=== PATIENT | male | born 1950 | race Caucasian/White ===

== ENCOUNTER 2021-10-02 07:03 | Outpatient (REF) | payer OTHER, SELFPAY ==
[2021-10-02 08:39] LABS: MANUAL DIFF FLAG NO
[2021-10-02 09:17] LABS: Basophils Percent Auto 0.2 % (0-2); Eosinophils Absolute Auto 0.1 X10*3/uL (0.0-0.4); Eosinophils Percent Auto 2.2 % (0-4); Hematocrit 29.8 % (42.0-52.0); Hemoglobin 9.7 g/dl (14.0-18.0); Imm Gran Abs Auto 0.02 X10*3/uL (0.00-0.03); Imm Gran Pct Auto 0.4 % (0.0-0.4); Lymphocytes Absolute Auto 1.6 X10*3/uL (1.2-4.9); Lymphocytes Percent Auto 33.1 % (20-40); Mean Corpuscular HGB Conc 32.6 g/dl (31.0-36.0); Mean Corpuscular Hemoglobin 29.3 pg (27.0-33.0); Mean Platelet Volume 9.5 fL (9.4-12.4); Monocytes Absolute Auto 0.4 X10*3/uL (0.1-1.2); Monocytes Percent Auto 8.1 % (2-11); Neutrophils Absolute Auto 2.8 x10*3/uL (2.0-8.3); Platelet Count 258 X10*3/uL (160-400); Red Blood Count 3.31 X10*6/uL (4.60-5.80); Red Cell Distribution Width 12.8 % (11.0-16.0); White Blood Count 4.9 X10*3/uL (4.8-10.8)
[2021-10-02 09:21] LABS: INTERNATIONAL NORM RATIO 1.2 (0.9-1.1); Prothrombin Time 13.1 SEC (9.9-13.0)
[2021-10-02 09:32] LABS: Estimated Average Glucose 120 mg/dL; Hemoglobin A1c % 5.8 %
[2021-10-02 09:46] LABS: Alanine Aminotransferase 23 U/L (0-40); Albumin Level 3.5 g/dL (3.5-5.0); Alkaline Phosphatase 112 U/L (39-117); Anion Gap 12 (12-20); Aspartate Amino Transferase 15 U/L (5-37); Bilirubin Total 0.3 mg/dL (0.0-1.0); Blood Urea Nitrogen 10 mg/dL (9-16); Calcium 8.8 mg/dL (8.4-10.2); Carbon Dioxide 25 mmol/L (22-29); Chloride 104 mmol/L (96-108); Estimated Glomerular Filt Rate > 60; Glucose Fasting 110 mg/dL (60-99); Potassium 4.8 mmol/L (3.3-5.1); Sodium 136 mmol/L (135-145); Total Protein 6.3 g/dL (6.5-8.0)
[2021-10-02 09:52] LABS: Carbamazepine Tegretol 5.2 mcg/mL (5.0-12.0)
[2021-10-04 19:31] LABS: TS Negative Control Passed; TS Panel A 1; TS Panel B 1; TS Positive Control Passed; TSpotTB Negative (Negative)
== END 2021-10-02 07:04 | disposition home or self-care (01) ==
LOC: HO.HSH2N 07:03
PROVIDERS: Visit Provider Internal Medicine Interventional Cardiology
DX: I10 Essential (primary) hypertension (principal); E11.9 Type 2 diabetes mellitus without complications; G40.909 Epilepsy, unspecified, not intractable, without status epilepticus
CPT/HCPCS: 36415; 80053; 80156; 83036; 85025; 85610; 86481

== ENCOUNTER 2021-10-04 20:10 | Outpatient (REF) | payer OTHER, SELFPAY ==
[2021-10-04 20:07] LABS: OBS Int Ctl Valid YES; OBS1 NEGATIVE (NEGATIVE)
== END 2021-10-04 20:11 | disposition home or self-care (01) ==
LOC: HO.LAB 20:10
PROVIDERS: Visit Provider Internal Medicine Interventional Cardiology
DX: D64.9 Anemia, unspecified (principal)
CPT/HCPCS: 82272

== ENCOUNTER 2021-10-05 16:30 | Outpatient (REF) | payer OTHER, SELFPAY ==
[2021-10-05 16:45] LABS: OBS Int Ctl Valid YES; OBS1 NEGATIVE (NEGATIVE)
== END 2021-10-05 16:31 | disposition home or self-care (01) ==
LOC: HO.HSH2N 16:30
PROVIDERS: Visit Provider Internal Medicine Interventional Cardiology
DX: D64.9 Anemia, unspecified (principal)
CPT/HCPCS: 82272

== ENCOUNTER 2021-10-06 06:09 | Outpatient (REF) | payer OTHER, SELFPAY ==
[2021-10-06 08:17] LABS: Immature Retic Fraction 14.8 % (2.3-13.4); Retic HGB Equivalent 32.8 pg (30.0-35.0); Reticulocyte Percent 2.2 % (0.5-1.8); Reticulocytes Absolute 0.067 X10*6/uL (0.026-0.095)
[2021-10-06 08:28] LABS: Iron 66 mcg/dL (45-160); Percent Iron Saturation 23 % (15-50); Total Iron Binding Capacity 285 mcg/dL (228-428); Unsaturated Iron Binding 219 ug/dL
[2021-10-06 09:17] LABS: Folate 3.6 ng/mL (> or = 4.0); Vitamin B12 220 pg/mL (200-900)
== END 2021-10-06 06:10 | disposition home or self-care (01) ==
LOC: HO.HSH2N 06:09
PROVIDERS: Visit Provider Internal Medicine Interventional Cardiology
DX: D64.9 Anemia, unspecified (principal)
CPT/HCPCS: 36415; 82607; 82746; 83540; 85045

== ENCOUNTER 2021-10-23 06:15 | Outpatient (REF) | payer OTHER, SELFPAY ==
[2021-10-23 07:46] LABS: INTERNATIONAL NORM RATIO 1.2 (0.9-1.1)
== END 2021-10-23 06:16 | disposition home or self-care (01) ==
LOC: HO.HSH2N 06:15
PROVIDERS: Visit Provider Internal Medicine Interventional Cardiology
DX: I26.99 Other pulmonary embolism without acute cor pulmonale (principal)
CPT/HCPCS: 36415; 85610

== ENCOUNTER 2021-10-24 05:54 | Outpatient (REF) | payer OTHER, SELFPAY ==
[2021-10-24 07:53] LABS: INTERNATIONAL NORM RATIO 1.3 (0.9-1.1); Prothrombin Time 14.9 SEC (9.9-13.0)
== END 2021-10-24 05:55 | disposition home or self-care (01) ==
LOC: HO.HSH2N 05:54
PROVIDERS: Visit Provider Internal Medicine Interventional Cardiology
DX: I82.409 Acute embolism and thrombosis of unspecified deep veins of unspecified lower extremity (principal)
CPT/HCPCS: 36415; 85610

== ENCOUNTER 2021-10-27 06:02 | Outpatient (REF) | payer OTHER, SELFPAY ==
[2021-10-27 07:48] LABS: INTERNATIONAL NORM RATIO 1.7 (0.9-1.1); Prothrombin Time 19.4 SEC (9.9-13.0)
== END 2021-10-27 06:03 | disposition home or self-care (01) ==
LOC: HO.HSH2N 06:02
PROVIDERS: Visit Provider Internal Medicine Interventional Cardiology
DX: I82.409 Acute embolism and thrombosis of unspecified deep veins of unspecified lower extremity (principal)
CPT/HCPCS: 36415; 85610

== ENCOUNTER 2021-10-28 05:38 | Outpatient (REF) | payer OTHER, SELFPAY ==
[2021-10-28 07:48] LABS: INTERNATIONAL NORM RATIO 1.8 (0.9-1.1); Prothrombin Time 20.4 SEC (9.9-13.0)
== END 2021-10-28 05:39 | disposition home or self-care (01) ==
LOC: HO.HSH2N 05:38
PROVIDERS: Visit Provider Internal Medicine Interventional Cardiology
DX: I82.409 Acute embolism and thrombosis of unspecified deep veins of unspecified lower extremity (principal)
CPT/HCPCS: 36415; 85610

== ENCOUNTER 2021-10-29 05:38 | Outpatient (REF) | payer OTHER, SELFPAY ==
[2021-10-29 07:53] LABS: INTERNATIONAL NORM RATIO 1.7 (0.9-1.1); Prothrombin Time 20.1 SEC (9.9-13.0)
== END 2021-10-29 05:39 | disposition home or self-care (01) ==
LOC: HO.HSH2N 05:38
PROVIDERS: Visit Provider Internal Medicine Interventional Cardiology
DX: I26.99 Other pulmonary embolism without acute cor pulmonale (principal); I82.409 Acute embolism and thrombosis of unspecified deep veins of unspecified lower extremity
CPT/HCPCS: 36415; 85610

== ENCOUNTER 2021-10-30 05:40 | Outpatient (REF) | payer OTHER, SELFPAY ==
[2021-10-30 07:57] LABS: INTERNATIONAL NORM RATIO 1.8 (0.9-1.1); Prothrombin Time 20.5 SEC (9.9-13.0)
== END 2021-10-30 05:41 | disposition home or self-care (01) ==
LOC: HO.HSH2N 05:40
PROVIDERS: Visit Provider Internal Medicine Interventional Cardiology
DX: I82.409 Acute embolism and thrombosis of unspecified deep veins of unspecified lower extremity (principal)
CPT/HCPCS: 36415; 85610

== ENCOUNTER 2021-10-31 06:15 | Outpatient (REF) | payer OTHER, SELFPAY ==
[2021-10-31 07:44] LABS: INTERNATIONAL NORM RATIO 1.9 (0.9-1.1)
== END 2021-10-31 06:16 | disposition home or self-care (01) ==
LOC: HO.HSH2N 06:15
PROVIDERS: Visit Provider Internal Medicine Interventional Cardiology
DX: I82.409 Acute embolism and thrombosis of unspecified deep veins of unspecified lower extremity (principal)
CPT/HCPCS: 36415; 85610

== ENCOUNTER 2021-11-03 05:41 | Outpatient (REF) | payer OTHER, SELFPAY ==
[2021-11-03 07:50] LABS: Prothrombin Time 24.3 SEC (9.9-13.0)
[2021-11-03 07:51] LABS: INTERNATIONAL NORM RATIO 2.1 (0.9-1.1)
== END 2021-11-03 05:42 | disposition home or self-care (01) ==
LOC: HO.HSH2N 05:41
PROVIDERS: Visit Provider Internal Medicine Interventional Cardiology
DX: I82.409 Acute embolism and thrombosis of unspecified deep veins of unspecified lower extremity (principal)
CPT/HCPCS: 36415; 85610

== ENCOUNTER 2021-11-05 05:42 | Outpatient (REF) | payer OTHER, SELFPAY ==
[2021-11-05 08:03] LABS: INTERNATIONAL NORM RATIO 2.2 (0.9-1.1); Prothrombin Time 24.9 SEC (9.9-13.0)
== END 2021-11-05 05:43 | disposition home or self-care (01) ==
LOC: HO.HSH2N 05:42
PROVIDERS: Visit Provider Internal Medicine Interventional Cardiology
DX: I82.409 Acute embolism and thrombosis of unspecified deep veins of unspecified lower extremity (principal)
CPT/HCPCS: 36415; 85610

== ENCOUNTER 2021-11-07 07:14 | Outpatient (REF) | payer OTHER, SELFPAY ==
[2021-11-07 07:51] LABS: INTERNATIONAL NORM RATIO 2.3 (0.9-1.1); Prothrombin Time 27.1 SEC (9.9-13.0)
== END 2021-11-07 07:15 | disposition home or self-care (01) ==
LOC: HO.HSH2N 07:14
PROVIDERS: Visit Provider Internal Medicine Interventional Cardiology
DX: I82.409 Acute embolism and thrombosis of unspecified deep veins of unspecified lower extremity (principal)
CPT/HCPCS: 36415; 85610

== ENCOUNTER 2021-11-10 07:26 | Outpatient (REF) | payer OTHER, SELFPAY ==
[2021-11-10 09:07] LABS: INTERNATIONAL NORM RATIO 2.5 (0.9-1.1); Prothrombin Time 29.4 SEC (9.9-13.0)
== END 2021-11-10 07:27 | disposition home or self-care (01) ==
LOC: HO.HSH2N 07:26
PROVIDERS: Visit Provider Internal Medicine Interventional Cardiology
DX: I82.409 Acute embolism and thrombosis of unspecified deep veins of unspecified lower extremity (principal)
CPT/HCPCS: 36415; 85610

== ENCOUNTER 2021-11-14 06:59 | Outpatient (REF) | payer OTHER, SELFPAY ==
[2021-11-14 07:59] LABS: INTERNATIONAL NORM RATIO 2.7 (0.9-1.1)
== END 2021-11-14 07:00 | disposition home or self-care (01) ==
LOC: HO.HSH2N 06:59
PROVIDERS: Visit Provider Internal Medicine Interventional Cardiology
DX: I82.409 Acute embolism and thrombosis of unspecified deep veins of unspecified lower extremity (principal)
CPT/HCPCS: 36415; 85610

== ENCOUNTER 2021-11-18 06:19 | Outpatient (REF) | payer OTHER, SELFPAY ==
[2021-11-18 07:55] LABS: Prothrombin Time 35.4 SEC (9.9-13.0)
== END 2021-11-18 06:20 | disposition home or self-care (01) ==
LOC: HO.HSH2N 06:19
PROVIDERS: Visit Provider Internal Medicine Interventional Cardiology
DX: I82.409 Acute embolism and thrombosis of unspecified deep veins of unspecified lower extremity (principal); I26.99 Other pulmonary embolism without acute cor pulmonale
CPT/HCPCS: 36415; 85610

== ENCOUNTER 2021-11-21 05:31 | Outpatient (REF) | payer OTHER, SELFPAY ==
[2021-11-21 07:00] LABS: INTERNATIONAL NORM RATIO 3.3 (0.9-1.1); Prothrombin Time 38.4 SEC (9.9-13.0)
== END 2021-11-21 05:32 | disposition home or self-care (01) ==
LOC: HO.HSH2N 05:31
PROVIDERS: Visit Provider Internal Medicine Interventional Cardiology
DX: I26.99 Other pulmonary embolism without acute cor pulmonale (principal); I82.409 Acute embolism and thrombosis of unspecified deep veins of unspecified lower extremity
CPT/HCPCS: 36415; 85610

== ENCOUNTER 2021-11-24 05:36 | Outpatient (REF) | payer OTHER, SELFPAY ==
[2021-11-24 07:36] LABS: INTERNATIONAL NORM RATIO 1.5 (0.9-1.1); Prothrombin Time 17.6 SEC (9.9-13.0)
== END 2021-11-24 05:37 | disposition home or self-care (01) ==
LOC: HO.HSH2N 05:36
PROVIDERS: Visit Provider Internal Medicine Interventional Cardiology
DX: I26.99 Other pulmonary embolism without acute cor pulmonale (principal); I82.409 Acute embolism and thrombosis of unspecified deep veins of unspecified lower extremity
CPT/HCPCS: 36415; 85610

== ENCOUNTER 2021-12-18 07:48 | Outpatient (REF) | payer OTHER, SELFPAY ==
[2021-12-18 08:14] LABS: Anion Gap 13 (12-20); Blood Urea Nitrogen 17 mg/dL (9-16); Carbon Dioxide 22 mmol/L (22-29); Chloride 106 mmol/L (96-108); Estimated Glomerular Filt Rate > 60; Potassium 4.4 mmol/L (3.3-5.1); Sodium 137 mmol/L (135-145)
== END 2021-12-18 07:49 | disposition home or self-care (01) ==
LOC: HO.HSH2N 07:48
PROVIDERS: Visit Provider Internal Medicine Interventional Cardiology
DX: R60.0 Localized edema (principal)
CPT/HCPCS: 36415; 80051; 82565; 84520

== ENCOUNTER 2022-02-18 05:42 | Outpatient (REF) | payer OTHER, SELFPAY ==
[2022-02-18 08:00] LABS: MANUAL DIFF FLAG NO
[2022-02-18 08:01] LABS: Basophils Percent Auto 0.3 % (0-2); Eosinophils Absolute Auto 0.2 X10*3/uL (0.0-0.4); Eosinophils Percent Auto 2.6 % (0-4); Hematocrit 31.8 % (42.0-52.0); Hemoglobin 10.6 g/dl (14.0-18.0); Imm Gran Abs Auto 0.02 X10*3/uL (0.00-0.03); Imm Gran Pct Auto 0.3 % (0.0-0.4); Lymphocytes Absolute Auto 1.8 X10*3/uL (1.2-4.9); Lymphocytes Percent Auto 28.9 % (20-40); Mean Corpuscular HGB Conc 33.3 g/dl (31.0-36.0); Mean Corpuscular Hemoglobin 29.1 pg (27.0-33.0); Mean Corpuscular Volume 87.4 fL (80.0-98.0); Mean Platelet Volume 9.8 fL (9.4-12.4); Monocytes Absolute Auto 0.5 X10*3/uL (0.1-1.2); Monocytes Percent Auto 8.5 % (2-11); Neutrophils Absolute Auto 3.6 x10*3/uL (2.0-8.3); Neutrophils Percent Auto 59.4 % (45-73); Platelet Count 222 X10*3/uL (160-400); Red Blood Count 3.64 X10*6/uL (4.60-5.80); Red Cell Distribution Width 12.8 % (11.0-16.0); White Blood Count 6.1 X10*3/uL (4.8-10.8)
[2022-02-18 08:12] LABS: Anion Gap 13 (12-20); Blood Urea Nitrogen 14 mg/dL (9-16); Calcium 8.4 mg/dL (8.4-10.2); Carbon Dioxide 24 mmol/L (22-29); Chloride 104 mmol/L (96-108); Estimated Glomerular Filt Rate > 60; Glucose Fasting 245 mg/dL (60-99); Potassium 4.6 mmol/L (3.3-5.1); Sodium 136 mmol/L (135-145)
[2022-02-18 08:33] LABS: Estimated Average Glucose 189 mg/dL; Hemoglobin A1c % 8.2 %
== END 2022-02-18 05:43 | disposition home or self-care (01) ==
LOC: HO.HSH2N 05:42
PROVIDERS: Visit Provider Internal Medicine Interventional Cardiology
DX: E11.9 Type 2 diabetes mellitus without complications (principal); D64.9 Anemia, unspecified
CPT/HCPCS: 36415; 80048; 83036; 85025

== ENCOUNTER 2022-03-27 14:39 | Outpatient (REF) | payer OTHER, SELFPAY ==
[2022-03-27 08:24] LABS: MANUAL DIFF FLAG NO
[2022-03-27 08:29] LABS: Basophils Percent Auto 0.4 % (0-2); Eosinophils Absolute Auto 0.2 X10*3/uL (0.0-0.4); Eosinophils Percent Auto 2.3 % (0-4); Hematocrit 33.9 % (42.0-52.0); Hemoglobin 11.3 g/dl (14.0-18.0); Imm Gran Abs Auto 0.02 X10*3/uL (0.00-0.03); Imm Gran Pct Auto 0.3 % (0.0-0.4); Lymphocytes Absolute Auto 2.1 X10*3/uL (1.2-4.9); Mean Corpuscular HGB Conc 33.3 g/dl (31.0-36.0); Mean Corpuscular Hemoglobin 28.9 pg (27.0-33.0); Mean Corpuscular Volume 86.7 fL (80.0-98.0); Mean Platelet Volume 9.6 fL (9.4-12.4); Monocytes Absolute Auto 0.6 X10*3/uL (0.1-1.2); Monocytes Percent Auto 7.9 % (2-11); Neutrophils Absolute Auto 4.4 x10*3/uL (2.0-8.3); Neutrophils Percent Auto 60.1 % (45-73); Platelet Count 261 X10*3/uL (160-400); Red Blood Count 3.91 X10*6/uL (4.60-5.80); Red Cell Distribution Width 12.6 % (11.0-16.0); White Blood Count 7.3 X10*3/uL (4.8-10.8)
[2022-03-27 08:48] LABS: Estimated Average Glucose 203 mg/dL; Hemoglobin A1c % 8.7 %
[2022-03-27 09:03] LABS: Anion Gap 16 (12-20); Blood Urea Nitrogen 16 mg/dL (9-16); Calcium 8.9 mg/dL (8.4-10.2); Carbon Dioxide 25 mmol/L (22-29); Chloride 101 mmol/L (96-108); Estimated Glomerular Filt Rate > 60; Glucose Fasting 251 mg/dL (60-99); Potassium 4.5 mmol/L (3.3-5.1); Sodium 137 mmol/L (135-145)
== END 2022-03-27 14:40 | disposition home or self-care (01) ==
LOC: HO.HSH2N 14:39
PROVIDERS: Visit Provider Internal Medicine Interventional Cardiology
DX: D64.9 Anemia, unspecified (principal); E11.9 Type 2 diabetes mellitus without complications
CPT/HCPCS: 36415; 80048; 83036; 85025

== ENCOUNTER 2022-04-30 06:52 | Outpatient (REF) | payer OTHER, SELFPAY ==
[2022-04-30 08:34] LABS: Estimated Average Glucose 197 mg/dL; Hemoglobin A1c % 8.5 %
== END 2022-04-30 06:53 | disposition home or self-care (01) ==
LOC: HO.HSH2N 06:52
PROVIDERS: Visit Provider Internal Medicine Interventional Cardiology
DX: E11.9 Type 2 diabetes mellitus without complications (principal)
CPT/HCPCS: 36415; 83036

== ENCOUNTER 2022-06-02 09:27 | Outpatient (REF) | payer OTHER, SELFPAY ==
[2022-06-02 06:20] LABS: Estimated Average Glucose 186 mg/dL; Hemoglobin A1c % 8.1 %
== END 2022-06-02 09:28 | disposition home or self-care (01) ==
LOC: HO.HSH2N 09:27
PROVIDERS: Visit Provider Internal Medicine Interventional Cardiology
DX: E11.9 Type 2 diabetes mellitus without complications (principal)
CPT/HCPCS: 36415; 83036

== ENCOUNTER 2022-07-07 05:58 | Outpatient (REF) | payer OTHER, SELFPAY ==
[2022-07-07 08:27] LABS: Anion Gap 15 (12-20); Blood Urea Nitrogen 13 mg/dL (9-16); Calcium 9.2 mg/dL (8.4-10.2); Carbon Dioxide 25 mmol/L (22-29); Chloride 106 mmol/L (96-108); Estimated Glomerular Filt Rate > 60; Glucose Fasting 150 mg/dL (60-99); Potassium 4.6 mmol/L (3.3-5.1); Sodium 141 mmol/L (135-145)
[2022-07-07 08:47] LABS: Estimated Average Glucose 166 mg/dL; Hemoglobin A1c % 7.4 %
== END 2022-07-07 05:59 | disposition home or self-care (01) ==
LOC: HO.HSH2N 05:58
PROVIDERS: Visit Provider Internal Medicine Interventional Cardiology
DX: E11.9 Type 2 diabetes mellitus without complications (principal)
CPT/HCPCS: 36415; 80048; 83036

== ENCOUNTER 2022-08-31 05:34 | Outpatient (REF) | payer OTHER, SELFPAY ==
[2022-08-31 08:17] LABS: Estimated Average Glucose 166 mg/dL; Hemoglobin A1c % 7.4 %
== END 2022-08-31 05:35 | disposition home or self-care (01) ==
LOC: HO.HSH2N 05:34
PROVIDERS: Visit Provider Internal Medicine Interventional Cardiology
DX: E11.9 Type 2 diabetes mellitus without complications (principal)
CPT/HCPCS: 36415; 83036

== ENCOUNTER 2022-11-04 05:36 | Outpatient (REF) | payer OTHER, SELFPAY ==
[2022-11-04 09:46] LABS: MANUAL DIFF FLAG NO
[2022-11-04 09:56] LABS: Basophils Absolute Auto 0.1 X10*3/uL (0.0-0.2); Basophils Percent Auto 1.1 % (0-2); Eosinophils Absolute Auto 0.4 X10*3/uL (0.0-0.4); Eosinophils Percent Auto 4.1 % (0-4); Hematocrit 39.1 % (42.0-52.0); Hemoglobin 11.9 g/dl (14.0-18.0); Imm Gran Abs Auto 0.06 X10*3/uL (0.00-0.03); Imm Gran Pct Auto 0.6 % (0.0-0.4); Lymphocytes Absolute Auto 2.2 X10*3/uL (1.2-4.9); Lymphocytes Percent Auto 22.8 % (20-40); Mean Corpuscular HGB Conc 30.4 g/dl (31.0-36.0); Mean Corpuscular Hemoglobin 28.1 pg (27.0-33.0); Mean Corpuscular Volume 92.2 fL (80.0-98.0); Monocytes Absolute Auto 0.9 X10*3/uL (0.1-1.2); Monocytes Percent Auto 9.2 % (2-11); Neutrophils Absolute Auto 5.8 x10*3/uL (2.0-8.3); Neutrophils Percent Auto 62.2 % (45-73); Platelet Count 275 X10*3/uL (160-400); Red Blood Count 4.24 X10*6/uL (4.60-5.80); White Blood Count 9.4 X10*3/uL (4.8-10.8)
== END 2022-11-04 05:37 | disposition home or self-care (01) ==
LOC: HO.HSH2N 05:36
PROVIDERS: Visit Provider Internal Medicine
DX: L03.90 Cellulitis, unspecified (principal)
CPT/HCPCS: 36415; 85025

== ENCOUNTER 2023-01-05 05:56 | Outpatient (REF) | payer OTHER, SELFPAY ==
[2023-01-05 06:45] LABS: Estimated Average Glucose 171 mg/dL; Hemoglobin A1c % 7.6 %
[2023-01-05 07:00] LABS: Alanine Aminotransferase 19 U/L (0-40); Albumin Level 3.5 g/dL (3.5-5.0); Alkaline Phosphatase 113 U/L (39-117); Anion Gap 12 (12-20); Aspartate Amino Transferase 11 U/L (5-37); Bilirubin Total 0.6 mg/dL (0.0-1.0); Blood Urea Nitrogen 10 mg/dL (9-16); Calcium 8.9 mg/dL (8.4-10.2); Carbon Dioxide 25 mmol/L (22-29); Chloride 106 mmol/L (96-108); Cholesterol 104 mg/dL; Estimated Glomerular Filt Rate > 60; Glucose Fasting 181 mg/dL (60-99); HDL Cholesterol 30 mg/dL; LDL Cholesterol Calculated 59 mg/dl; Potassium 4.3 mmol/L (3.3-5.1); Sodium 139 mmol/L (135-145); Total Protein 6.1 g/dL (6.5-8.0); Triglycerides 78 mg/dL
[2023-01-05 07:14] LABS: Thyroid Stimulating Hormone 2.67 uIU/mL (0.32-4.0)
== END 2023-01-05 05:57 | disposition home or self-care (01) ==
LOC: HO.HSH2N 05:56
PROVIDERS: Visit Provider Internal Medicine Interventional Cardiology
DX: E11.9 Type 2 diabetes mellitus without complications (principal); E78.5 Hyperlipidemia, unspecified; I10 Essential (primary) hypertension
CPT/HCPCS: 36415; 80053; 80061; 83036; 84443

== ENCOUNTER 2023-05-08 10:10 | Outpatient (REF) | payer OTHER, SELFPAY ==
[2023-05-08 10:21] LABS: MANUAL DIFF FLAG NO
[2023-05-08 10:35] LABS: Basophils Percent Auto 0.1 % (0-2); Eosinophils Percent Auto 0.3 % (0-4); Hematocrit 33.9 % (42.0-52.0); Hemoglobin 11.3 g/dl (14.0-18.0); Imm Gran Abs Auto 0.02 X10*3/uL (0.00-0.03); Imm Gran Pct Auto 0.3 % (0.0-0.4); Lymphocytes Absolute Auto 1.2 X10*3/uL (1.2-4.9); Lymphocytes Percent Auto 16.6 % (20-40); Mean Corpuscular HGB Conc 33.3 g/dl (31.0-36.0); Mean Corpuscular Hemoglobin 28.8 pg (27.0-33.0); Mean Corpuscular Volume 86.5 fL (80.0-98.0); Monocytes Absolute Auto 0.5 X10*3/uL (0.1-1.2); Monocytes Percent Auto 6.7 % (2-11); Neutrophils Absolute Auto 5.3 x10*3/uL (2.0-8.3); Platelet Count 213 X10*3/uL (160-400); Red Blood Count 3.92 X10*6/uL (4.60-5.80); Red Cell Distribution Width 13.2 % (11.0-16.0)
[2023-05-08 10:43] LABS: Estimated Average Glucose 160 mg/dL; Hemoglobin A1c % 7.2 % (<6.0)
[2023-05-08 10:54] LABS: Alanine Aminotransferase 22 U/L (0-40); Albumin Level 3.6 g/dL (3.5-5.0); Alkaline Phosphatase 94 U/L (39-117); Anion Gap 14 (12-20); Aspartate Amino Transferase 21 U/L (5-37); Bilirubin Total 0.3 mg/dL (0.0-1.0); Blood Urea Nitrogen 12 mg/dL (9-16); Calcium 9.2 mg/dL (8.4-10.2); Carbon Dioxide 23 mmol/L (22-29); Chloride 103 mmol/L (96-108); Estimated Glomerular Filt Rate > 60; Glucose Random 234 mg/dL (60-115); Potassium 4.2 mmol/L (3.3-5.1); Sodium 136 mmol/L (135-145)
[2023-05-08 11:28] LABS: Folate 14.9 ng/mL (> or = 4.0)
[2023-05-11 10:28] LABS: Free Prostate Spec Ag 0.1 ng/mL; Percent Free Prostate Spec Ag 50 % (calc) (>25); Prostate Specific Ag Total 0.2 ng/mL (< OR = 4.0)
== END 2023-05-08 10:11 | disposition home or self-care (01) ==
LOC: HO.HSH2N 10:10
PROVIDERS: Visit Provider Internal Medicine Medical Oncology
DX: U07.1 COVID-19 (principal)
CPT/HCPCS: 36415; 80053; 82746; 83036; 84154; 85025

== ENCOUNTER 2023-05-08 14:32 | Outpatient (REF) | payer OTHER, SELFPAY ==
[2023-05-08 14:50] LABS: Appearance Urine Clear; Color Urine Yellow; Glucose Urine UA 100 mg/dL (Negative); Leukocyte Esterase Urine Negative (Negative); Nitrite Urine Negative (Negative); PH 5.5 (5.0-9.0); Specific Gravity - Urine 1.025 (1.005-1.025); UMIC TRIGGER UACC YES; Urine Blood Negative (Negative); Urine Ketones Negative (Negative); Urine Protein 30 (1+) mg/dL (Neg-Trace)
[2023-05-08 15:06] LABS: Bacteria Urine None Seen (None Seen); Granular Casts Urine Present; RBC Urine 0-2 /HPF (0-2); Squamous Epithelial Cell Urine 0-2 /HPF (0-2); WBC Urine 0-5 /HPF (0-5)
== END 2023-05-08 14:33 | disposition home or self-care (01) ==
LOC: HO.HSH1N 14:32
PROVIDERS: Visit Provider Internal Medicine Medical Oncology
DX: U07.1 COVID-19 (principal)
CPT/HCPCS: 81001

== ENCOUNTER 2023-10-05 05:48 | Outpatient (REF) | payer OTHER, SELFPAY ==
[2023-10-05 07:21] LABS: MANUAL DIFF FLAG NO
[2023-10-05 07:31] LABS: Basophils Percent Auto 0.2 % (0-2); Eosinophils Absolute Auto 0.2 X10*3/uL (0.0-0.4); Eosinophils Percent Auto 2.1 % (0-4); Hematocrit 33.4 % (42.0-52.0); Hemoglobin 10.9 g/dl (14.0-18.0); Imm Gran Abs Auto 0.02 X10*3/uL (0.00-0.03); Imm Gran Pct Auto 0.2 % (0.0-0.4); Lymphocytes Absolute Auto 2.7 X10*3/uL (1.2-4.9); Lymphocytes Percent Auto 32.6 % (20-40); Mean Corpuscular HGB Conc 32.6 g/dl (31.0-36.0); Mean Corpuscular Hemoglobin 28.2 pg (27.0-33.0); Mean Corpuscular Volume 86.3 fL (80.0-98.0); Mean Platelet Volume 10.4 fL (9.4-12.4); Monocytes Absolute Auto 0.5 X10*3/uL (0.1-1.2); Monocytes Percent Auto 6.5 % (2-11); Neutrophils Absolute Auto 4.8 x10*3/uL (2.0-8.3); Neutrophils Percent Auto 58.4 % (45-73); Platelet Count 201 X10*3/uL (160-400); Red Blood Count 3.87 X10*6/uL (4.60-5.80); Red Cell Distribution Width 13.5 % (11.0-16.0); White Blood Count 8.1 X10*3/uL (4.8-10.8)
[2023-10-05 07:43] LABS: Estimated Average Glucose 151 mg/dL; Hemoglobin A1C 148.7229 umol/L; Hemoglobin A1c % 6.9 % (<6.0)
[2023-10-05 07:45] LABS: Anion Gap 15 (12-20); Blood Urea Nitrogen 12 mg/dL (9-16); Calcium 9.1 mg/dL (8.4-10.2); Carbon Dioxide 22 mmol/L (22-29); Chloride 106 mmol/L (96-108); Estimated Glomerular Filt Rate > 60; Glucose Fasting 147 mg/dL (60-99); Potassium 4.3 mmol/L (3.3-5.1); Sodium 139 mmol/L (135-145)
== END 2023-10-05 05:49 | disposition home or self-care (01) ==
LOC: HO.HSH2N 05:48
PROVIDERS: Visit Provider Internal Medicine Interventional Cardiology
DX: E11.9 Type 2 diabetes mellitus without complications (principal); D64.9 Anemia, unspecified
CPT/HCPCS: 36415; 80048; 83036; 85025

== ENCOUNTER 2023-12-21 11:50 | Outpatient (REF) | payer OTHER, SELFPAY ==
[2023-12-21 13:34] LABS: Adenovirus F 40/41 Not Detected (Not Detect.); Astrovirus Not Detected (Not Detect.); Campylobacter Not Detected (Not Detect.); Cryptosporidium Not Detected (Not Detect.); Cyclospora cayetanensis Not Detected (Not Detect.); E. coli EAEC Not Detected (Not Detect.); E. coli EPEC Not Detected (Not Detect.); E. coli ETEC Not Detected (Not Detect.); E. coli STEC Not Detected (Not Detect.); Entamoeba histolytica Not Detected (Not Detect.); Giardia lamblia Not Detected (Not Detect.); Plesiomonas shigelloides Not Detected (Not Detect.); Rotavirus A Not Detected (Not Detect.); Salmonella Not Detected (Not Detect.); Sapovirus Not Detected (Not Detect.); Shigella sp./EIEC Not Detected (Not Detect.); Vibrio Not Detected (Not Detect.); Vibrio Cholerae Not Detected (Not Detect.); Yersinia enterocolitica Not Detected (Not Detect.)
[2023-12-23 12:14] LABS: Norovirus Stool PCR DETECTED
== END 2023-12-21 11:51 | disposition home or self-care (01) ==
LOC: HO.HSH2W 11:50
PROVIDERS: Visit Provider Internal Medicine Interventional Cardiology
DX: R19.7 Diarrhea, unspecified (principal)
CPT/HCPCS: 87507

== ENCOUNTER 2024-03-10 19:58 | Outpatient (REF) | payer OTHER, SELFPAY ==
[2024-03-10 20:09] LABS: MANUAL DIFF FLAG NO
[2024-03-10 20:19] LABS: Basophils Percent Auto 0.3 % (0-2); Eosinophils Absolute Auto 0.2 X10*3/uL (0.0-0.4); Eosinophils Percent Auto 1.9 % (0-4); Hematocrit 35.9 % (42.0-52.0); Imm Gran Abs Auto 0.03 X10*3/uL (0.00-0.03); Imm Gran Pct Auto 0.3 % (0.0-0.4); Lymphocytes Absolute Auto 2.3 X10*3/uL (1.2-4.9); Mean Corpuscular HGB Conc 33.4 g/dl (31.0-36.0); Mean Corpuscular Hemoglobin 29.4 pg (27.0-33.0); Monocytes Absolute Auto 0.6 X10*3/uL (0.1-1.2); Monocytes Percent Auto 6.7 % (2-11); Neutrophils Absolute Auto 5.5 x10*3/uL (2.0-8.3); Neutrophils Percent Auto 63.8 % (45-73); Platelet Count 240 X10*3/uL (160-400); Red Blood Count 4.08 X10*6/uL (4.60-5.80); Red Cell Distribution Width 13.2 % (11.0-16.0); White Blood Count 8.6 X10*3/uL (4.8-10.8)
[2024-03-10 20:37] LABS: Anion Gap 18 (12-20); Blood Urea Nitrogen 14 mg/dL (9-16); Calcium 9.8 mg/dL (8.4-10.2); Carbon Dioxide 22 mmol/L (22-29); Chloride 103 mmol/L (96-108); Estimated Glomerular Filt Rate > 60; Glucose Random 125 mg/dL (60-115); Potassium 4.5 mmol/L (3.3-5.1); Sodium 138 mmol/L (135-145)
[2024-03-10 20:45] LABS: Lactic Acid 2.9 mmol/L (0.5-2.0)
[2024-03-10 22:07] LABS: Reflex Lactate? Lactic Acid Added
== END 2024-03-10 19:59 | disposition home or self-care (01) ==
LOC: HO.HSH2W 19:58
PROVIDERS: Visit Provider Internal Medicine
DX: L03.90 Cellulitis, unspecified (principal); E11.9 Type 2 diabetes mellitus without complications
CPT/HCPCS: 36415; 80048; 83605; 85025

== ENCOUNTER 2024-04-14 06:39 | Outpatient (REF) | payer OTHER, SELFPAY ==
[2024-04-14 07:19] LABS: INTERNATIONAL NORM RATIO 1.4 (0.9-1.1); Prothrombin Time 16.5 SEC (11.1-13.3)
[2024-04-14 07:46] LABS: Alanine Aminotransferase 11 U/L (0-40); Albumin Level 3.4 g/dL (3.5-5.0); Alkaline Phosphatase 116 U/L (39-117); Aspartate Amino Transferase 10 U/L (5-37); Bilirubin Direct 0.1 mg/dL (0.0-0.5); Bilirubin Total 0.3 mg/dL (0.0-1.0); Total Protein 6.6 g/dL (6.5-8.0)
== END 2024-04-14 06:40 | disposition home or self-care (01) ==
LOC: HO.HSH2W 06:39
PROVIDERS: Visit Provider Internal Medicine Interventional Cardiology
DX: U07.1 COVID-19 (principal)
CPT/HCPCS: 36415; 80076; 85610

== ENCOUNTER 2024-07-18 15:16 | Outpatient (REF) | payer OTHER, SELFPAY | END 2024-07-18 15:17 | disposition home or self-care (01) | LOC: HO.HSH2W 15:16 | PROVIDERS: Visit Provider Internal Medicine | DX: S91.109A Unspecified open wound of unspecified toe(s) without damage to nail, initial encounter (principal); X58.XXXA Exposure to other specified factors, initial encounter; Y93.9 Activity, unspecified; Y92.9 Unspecified place or not applicable; Y99.9 Unspecified external cause status | CPT/HCPCS: 87070; 87077; 87186; 87205 ==

== ENCOUNTER 2024-07-19 06:17 | Outpatient (REF) | payer OTHER, SELFPAY ==
[2024-07-19 06:22] LABS: MANUAL DIFF FLAG NO
[2024-07-19 06:29] LABS: Basophils Percent Auto 0.4 % (0-2); Eosinophils Absolute Auto 0.2 X10*3/uL (0.0-0.4); Eosinophils Percent Auto 2.1 % (0-4); Hemoglobin 11.6 g/dl (14.0-18.0); Imm Gran Abs Auto 0.03 X10*3/uL (0.00-0.03); Imm Gran Pct Auto 0.4 % (0.0-0.4); Lymphocytes Absolute Auto 2.6 X10*3/uL (1.2-4.9); Mean Corpuscular HGB Conc 33.1 g/dl (31.0-36.0); Mean Corpuscular Hemoglobin 28.9 pg (27.0-33.0); Mean Corpuscular Volume 87.3 fL (80.0-98.0); Mean Platelet Volume 9.4 fL (9.4-12.4); Monocytes Absolute Auto 0.6 X10*3/uL (0.1-1.2); Monocytes Percent Auto 7.8 % (2-11); Neutrophils Absolute Auto 4.3 x10*3/uL (2.0-8.3); Neutrophils Percent Auto 55.3 % (45-73); Platelet Count 197 X10*3/uL (160-400); Red Blood Count 4.01 X10*6/uL (4.60-5.80); Red Cell Distribution Width 12.8 % (11.0-16.0); White Blood Count 7.7 X10*3/uL (4.8-10.8)
[2024-07-19 06:38] LABS: Anion Gap 15 (12-20); Blood Urea Nitrogen 14 mg/dL (9-16); Carbon Dioxide 19 mmol/L (22-29); Chloride 108 mmol/L (96-108); Estimated Glomerular Filt Rate > 60; Glucose Random 105 mg/dL (60-115); Sodium 138 mmol/L (135-145)
== END 2024-07-19 06:18 | disposition home or self-care (01) ==
LOC: HO.HSH2W 06:17
PROVIDERS: Visit Provider Internal Medicine
DX: L03.90 Cellulitis, unspecified (principal); E11.9 Type 2 diabetes mellitus without complications
CPT/HCPCS: 36415; 80048; 85025

== ENCOUNTER 2024-08-03 17:51 | Outpatient (REF) | payer OTHER, SELFPAY ==
[2024-08-03 18:19] LABS: Appearance Urine Cloudy; Color Urine Yellow; Glucose Urine UA 100 mg/dL (Negative); Leukocyte Esterase Urine Negative (Negative); Nitrite Urine Negative (Negative); PH 5.5 (5.0-9.0); Specific Gravity - Urine >= 1.030 (1.005-1.025); UMIC TRIGGER UA YES; Urine Blood Negative (Negative); Urine Ketones Negative (Negative); Urine Protein 30 (1+) mg/dL (Neg-Trace)
[2024-08-03 18:24] LABS: Bacteria Urine None Seen (None Seen); RBC Urine 0-2 /HPF (0-2); WBC Urine 0-5 /HPF (0-5)
== END 2024-08-03 17:52 | disposition home or self-care (01) ==
LOC: HO.HSH2W 17:51
PROVIDERS: Visit Provider Internal Medicine Interventional Cardiology
DX: N39.0 Urinary tract infection, site not specified (principal)
CPT/HCPCS: 81001

== ENCOUNTER 2024-08-04 06:11 | Outpatient (REF) | payer OTHER, SELFPAY ==
[2024-08-04 06:13] LABS: MANUAL DIFF FLAG NO
[2024-08-04 06:30] LABS: Basophils Percent Auto 0.2 % (0-2); Eosinophils Percent Auto 0.2 % (0-4); Hematocrit 36.6 % (42.0-52.0); Imm Gran Abs Auto 0.02 X10*3/uL (0.00-0.03); Imm Gran Pct Auto 0.2 % (0.0-0.4); Lymphocytes Absolute Auto 2.5 X10*3/uL (1.2-4.9); Lymphocytes Percent Auto 25.7 % (20-40); Mean Corpuscular HGB Conc 32.8 g/dl (31.0-36.0); Mean Corpuscular Hemoglobin 28.8 pg (27.0-33.0); Mean Platelet Volume 9.9 fL (9.4-12.4); Monocytes Absolute Auto 0.8 X10*3/uL (0.1-1.2); Monocytes Percent Auto 8.5 % (2-11); Neutrophils Absolute Auto 6.2 x10*3/uL (2.0-8.3); Neutrophils Percent Auto 65.2 % (45-73); Platelet Count 260 X10*3/uL (160-400); Red Blood Count 4.16 X10*6/uL (4.60-5.80); White Blood Count 9.6 X10*3/uL (4.8-10.8)
== END 2024-08-04 06:12 | disposition home or self-care (01) ==
LOC: HO.HSH2W 06:11
PROVIDERS: Visit Provider Internal Medicine Interventional Cardiology
DX: E11.9 Type 2 diabetes mellitus without complications (principal)
CPT/HCPCS: 36415; 85025

== ENCOUNTER 2024-08-16 06:49 | Inpatient (IN) | payer OTHER, MEDICARE, SELFPAY ==
[2024-08-16] VITALS (15 sets, daily range): BP systolic 104–147; BP diastolic 51–73; PULSE 81–113; RESP 16–34; TEMP 37.1–38.1; O2SAT 92–98; BMI 40.7
--- NOTE | ~2024-08-16 | CT_ITS ---
EXAMINATION: CT CHEST, ABDOMEN AND PELVIS WITH CONTRAST CLINICAL INFORMATION: Nonverbal, vomiting, brown emesis. COMPARISON: None available. TECHNIQUE: Multidetector CT helical images of the chest, abdomen and pelvis were performed following the administration of 100 mL of intravenous Omnipaque 350. The data set was reformatted in the coronal and sagittal planes and reviewed on an independent workstation. This CT examination was performed using dose optimization techniques as appropriate, variously including the following: *Automated exposure control *Adjustment of mA and/or kV according to patient size (this includes techniques or standardized protocols for targeted exams where dose is matched to indication/reason for exam; i.e. extremities or head) *Use of iterative reconstruction technique DLP: 2495.42 mGy-cm. FINDINGS: CHEST: LUNGS: Evaluation of the lungs is limited due to extensive breathing motion artifact. There is dense consolidation with air bronchograms and volume loss in both lower lobes and to a lesser extent in the right upper lobe, suspicious for a multifocal pneumonia. There are ill-defined tiny nodular densities seen in the lungs, associated with slightly thickened airways, likely representing airway associated inflammatory changes. The central airways remain patent. No significant pleural effusion is seen. LYMPHOVASCULAR STRUCTURES: Aortic and heart size are normal. There is mild atherosclerotic calcification of the aorta and moderate atherosclerotic calcifications of the great vessels. No pericardial effusion is seen. Qjpu-vb-gpaavycq coronary artery calcifications are noted. There is an abnormal 1.2 cm lymph node in the azygos esophageal recess, possibly reactive. No other significant mediastinal, hilar or axillary adenopathy is seen. THYROID GLAND: Left lobe of the thyroid gland appears mildly atrophic relative to the right side. No focal thyroid nodule appreciated. BONES: Prominent vertebral hemangioma at the L2 level noted. Moderate vertebral endplate spurring seen throughout the mid and lower thoracic spine. No suspicious focal finding. ABDOMEN AND PELVIS: Evaluation is limited due to beam hardening artifact extending through the abdomen related to the patient's arms by his side. LIVER, GALLBLADDER, BILIARY TREE: Liver normal size. Heterogeneous attenuation of the liver is seen, in large part a function of being hardening artifact. No focal cystic or solid mass or intra-or extrahepatic ductal dilatation. Hepatic and portal veins patent. The gallbladder partially distended and suboptimally visualized. There appear to be a small minimally peripherally rim calcified and centrally lucent cholesterol gallstones within the gallbladder. No gallbladder wall thickening or pericholecystic edema/fat stranding is seen. PANCREAS: Diffuse mild fatty atrophy of the pancreas.. No ductal dilatation, mass, or surrounding stranding. SPLEEN: Normal size and appearance. Splenic vein patent. ADRENAL GLANDS AND KIDNEYS: Adrenal glands normal. Kidneys bilaterally symmetric in size and function. There is a tiny 0.5 cm low-attenuation mass in the mid right kidney, too small to characterize but statistically most likely a small cyst. There are likely small parapelvic left renal cysts. No suspicious renal mass is seen and no further renal imaging follow-up is recommended. No hydronephrosis, nephrolithiasis or significant perinephric stranding. URETERS AND BLADDER: Ureters decompressed and within normal limits. Bladder partially distended and within normal limits. PELVIC VISCERA: Unremarkable. BOWEL LOOPS: There is prominent gaseous distention of the stomach with air-fluid level seen. Finding may be related to aerophagia or gastroparesis. No definite obstructing mass is noted. Small and large bowel loops decompressed. Appendix in right lower quadrant normal. A wire is seen extending into the rectum, possibly a temperature probe. ABDOMINAL WALL: There is a moderate-sized fat-containing umbilical hernia with the hernia sac measuring 7.3 x 3.7 x 5.4 cm. No evidence of inflammatory change associated with the hernia seen. No bowel herniation noted. LYMPHOVASCULAR STRUCTURES: Abdominal aorta normal in caliber with moderate to severe atherosclerotic calcification seen, extending into the bifurcation. No periaortic collections. No abdominal or pelvic adenopathy or free fluid collection. BONES: Benign vertebral hemangiomas are seen at the L2, L3, and L4 levels. Severe degenerative disc disease at L4-5 and prominent posterior vertebral endplate spurring projecting into the spinal canal. CT/CT chest w IV con IMPRESSION: 1. Extensive consolidation is seen in both lower lobes and to a lesser extent in the right upper lobe, suspicious for multifocal pneumonia. There is also diffuse abnormal thickening and small associated nodularity, suggesting diffuse ileus associated inflammatory changes. 2. Abnormal 1.2 cm lymph node in the azygos esophageal recess, likely reactive. 3. Gaseous distention of the stomach with air-fluid level seen, possibly related to aerophagia or gastroparesis. No definite obstructing mass is seen. 4. Cholelithiasis with no evidence of acute cholecystitis or biliary obstruction. 5. Moderate-sized fat-containing umbilical hernia. 6. Moderate to severe atherosclerotic vascular disease, including coronary arteries. Electronically signed by: Rehana Drew MD 08/16/2024 09:10 AM [facility]
--- NOTE | 2024-08-16 06:49 | ECG_ITS ---
Test Reason : chf Blood Pressure : / mmHG Vent. Rate : 110 BPM Atrial Rate : 110 BPM P-R Int : 178 ms QRS Dur : 140 ms QT Int : 366 ms P-R-T Axes : 067 256 063 degrees QTc Int : 495 ms Sinus tachycardia Right bundle branch block Possible Lateral infarct , age undetermined Abnormal ECG No previous ECGs available Referred By: John Peguero Electronically Signed By:Wyatt Eubanks
--- NOTE | 2024-08-16 06:56 | ED_ITS ---
HPI - SOB/Dyspnea General Chief Complaint: Dyspnea Stated Complaint: SOB Time Seen by Provider: 08/16/24 06:56 Source: patient and EMS Mode of arrival: EMS Limitations: altered mental status History of Present Illness ED Provider: Astrid Estrella NP HPI Narrative: Patient is a 74-year-old male with past medical history of hyperlipidemia, BPH, CHF, diabetes, hypertension, prior DVT/PE on Eliquis, Alzheimer's dementia nonverbal at baseline, benign brain tumor with surgical resection in 2017, primarily bed/chair bound with a Jimy lift for transfer, aspiration risk who presents to the emergency department via [facility] Patient is not responsive to questioning. Report from EMS and [facility] on transfer form indicates patient with a history of Alzheimer's disease, has had a recent change of mental status, room-air hypoxia down to 86%, facility staff reporting that patient has been aspirating, wheezing, and vomiting x3 with brownish yellowish emesis. He is a DNR DNI. Related Data Allergies Allergy/AdvReac Type Severity Reaction Status Date / Time No Known Allergies Allergy Verified 08/16/24 06:59 Review of Systems 2 Review of Systems: Yes all other systems are reviewed and are negative PMF Past Medical History Attestation statement: The following information was validated with the patient. ([facility] Source: old records reviewed Social History Social History Smoked in Last 30 Days: No Use of substances other than those prescribed or required for medical reasons: No Advance Directives: No Do you have a plan to hurt others: No Plan Physical Exam 2 Vital Signs: Vital Signs: Last Vital Signs Temp 99.7 F 08/16/24 10:33 Pulse 85 08/16/24 10:33 Resp 20 08/16/24 10:33 BP 123/62 08/16/24 10:33 Pulse Ox 98 08/16/24 10:33 O2 Del Method Nasal Cannula 08/16/24 10:33 O2 Flow Rate 5 08/16/24 10:33 BMI result Body Mass Index 40.7 Appearance: Lethargic Eyes: Pupils equal, round and reactive to light.? ENT: Pharynx normal. Dry mucous membranes. Dried emesis.?? Neck: Normal inspection.? Neck supple.?? CVS: Heart sounds normal. Normal heart rate and rhythm.? Pulses normal.?? Respiratory: No respiratory distress.? Lung sounds with rhonchi and rales bilaterally Abdomen: Soft semi rounded. Normoactive bowel sounds. Skin: Skin warm and dry.? Normal skin color.? Extremities: No lower extremity edema.? No calf ttp? Neuro: Noted to be moving all extremities spontaneously however not to command. Course Reevaluation(s) Reevaluation #1: Sepsis alert called at this time, patient is tachycardic, febrile and tachypneic, auscultation has coarse rales, history of CHF and concern for fluid volume overload as well as infectious etiology, deferring sepsis fluid bolus protocol 30 mL/kg, therefore patient to only receive normal saline 250 mL, Rocephin IV, and rectal acetaminophen pending further evaluation serum labs and CXR. Time: 07:35 Reevaluation #2: Urinalysis without evidence of infection. CBC revealing a mild leukocytosis of 12,000 with left shift, no thrombocytopenia, mild normocytic anemia that does not meet transfusion criteria. No electrolyte derangement. No CHAIM. Non-anion gap hyperglycemia with glucose of 283. High sensitive troponin within normal range. BNP is pending. LFTs and lipase within normal range. Viral serologies are negative. No lactic acidosis. CT of the chest abdomen and pelvis revealing extensive consolidation in both bilateral lower lobes and right upper lobe suspicious for multifocal pneumonia, a no significant pleural effusion. Concern for aspiration, will add metronidazole to Rocephin. There is prominent gaseous distention of the stomach with air-fluid level seen, may be aerophagia gastroparesis no definitive obstruction, umbilical hernia without evidence of herniation or strangulation. Planning for admission to hospital service, acute hypoxic respiratory failure in the setting of multifocal pneumonia, currently not meeting severe sepsis criteria Medications Administered Discontinued Medications Generic Name Dose Route Start Last Admin Trade Name Freq PRN Reason Stop Dose Admin Acetaminophen 650 mg 08/16/24 07:33 08/16/24 07:44 Acetaminophen Supp 650 Mg Supp.Rect IA 08/16/24 07:34 650 mg ONCE ONE Administration Ceftriaxone Sodium 1 gm 08/16/24 07:33 08/16/24 07:45 Ceftriaxone Sodium 1 Gm Vial IVPUSH 08/16/24 07:34 1 gm ONCE ONE Administration Sodium Chloride 250 mls @ 999 mls/hr 08/16/24 07:45 08/16/24 08:35 Ns IV 08/16/24 08:00 Infused .Q16M ANTONIA Infusion Metronidazole 500 mg in 100 mls @ 100 mls/hr 08/16/24 09:29 08/16/24 10:56 Flagyl IV 08/16/24 10:28 Infused ONCE ONE Infusion Iohexol 100 ml 08/16/24 08:24 08/16/24 08:24 Iohexol 350 Mg/Ml 100 Ml Infus..Btl IV 08/16/24 08:25 100 ml ONCE ONE Administration Medical Decision Making Medical Decision Making MDM Narrative: Patient is a 74-year-old male with past medical history of hyperlipidemia, BPH, CHF, diabetes, hypertension, prior DVT/PE on Eliquis, Alzheimer's dementia nonverbal at baseline, benign brain tumor with surgical resection in 2017, primarily bed/chair bound with a Jimy lift for transfer, aspiration risk who presents emergency department for evaluation of altered mental status, lethargy, acute respiratory failure with room air hypoxia, and vomiting as per HPI. On his arrival he was placed on an OxyMask at 5 L with O2 saturation 97%, lung sounds auscultation with coarse rhonchi bilaterally, he is lethargic not follow commands though at baseline he is nonverbal. His medical records reveal that he has an aspiration risk, possible this may have been aspiration pneumonia, versus CHF exacerbation versus bowel obstruction versus viral illness. Obtaining serum labs including lactic acid and blood cultures, EKG and troponin to evaluate for ACS/arrhythmia. Differential Diagnosis Differential Diagnoses: The differential diagnosis associated with the presentation includes (See narrative above) Admission/Observation Consideration of admission/observation: Escalation of care including admission/observation considered (See narrative above in course narrative for further detail) Lab Data MDM Lab Attestation statement: I reviewed the patient's lab results. (See course narrative) 08/16/24 07:18 08/16/24 07:18 Labs: Lab Results 08/16/24 08/16/24 08/16/24 Range/Units 07:18 07:19 07:28 WBC 12.0 H (4.8-10.8) X10*3/uL RBC 4.65 (4.60-5.80) X10*6/uL Hgb 13.6 L (14.0-18.0) g/dl Hct 39.9 L (42.0-52.0) % MCV 85.8 (80.0-98.0) fL MCH 29.2 (27.0-33.0) pg MCHC 34.1 (31.0-36.0) g/dl RDW 13.0 (11.0-16.0) % Plt Count 334 D (160-400) X10*3/uL MPV 9.7 (9.4-12.4) fL Immature Gran % (Auto) 0.2 (0.0-0.4) % Neut % (Auto) 86.2 H (45-73) % Lymph % (Auto) 6.9 L (20-40) % [place] % (Auto) 6.6 (2-11) % Eos % (Auto) 0.0 (0-4) % Baso % (Auto) 0.1 (0-2) % Lymph # (Auto) 0.8 L (1.2-4.9) X10*3/uL [place] # (Auto) 0.8 (0.1-1.2) X10*3/uL Eos # (Auto) 0.0 (0.0-0.4) X10*3/uL Baso # (Auto) 0.0 (0.0-0.2) X10*3/uL Abs Immat Gran (auto) 0.03 (0.00-0.03) X10*3/uL Absolute Neuts (auto) 10.4 H (2.0-8.3) x10*3/uL Absolute Nucleated RBC 0.000 (0.0-0.012) X10*3/uL Nucleated RBC % (auto) 0.0 (0.0-0.2) /100WBC PT 15.5 H (10.9-12.4) SEC INR 1.3 H (0.9-1.1) VBG pH 7.46 H (7.32-7.43) VBG pCO2 29 mmHg VBG pO2 171 mmHg VBG HCO3 21 L (22-26) mmol/L VBG O2 Saturation 100.0 % VBG Base Excess -0.9 mmol/L Sodium 137 (135-145) mmol/L Potassium 3.7 (3.3-5.1) mmol/L Chloride 105 (96-108) mmol/L Carbon Dioxide 21 L (22-29) mmol/L Anion Gap 15 (12-20) BUN 18 H (9-16) mg/dL Creatinine 0.81 (0.5-1.4) mg/dL Estim Creat Clear Calc 104.5 Estimated GFR > 60 Random Glucose 283 H (60-115) mg/dL Lactic Acid 1.7 (0.5-2.0) mmol/L Calcium 9.4 (8.4-10.2) mg/dL Magnesium 2.0 (1.6-2.6) mg/dL Total Bilirubin 0.6 (0.0-1.0) mg/dL AST 13 (5-37) U/L ALT 11 (0-40) U/L Alkaline Phosphatase 97 (39-117) U/L Troponin I High Sens 4.8 (<3.5-35.0) ng/L Total Protein 7.3 (6.5-8.0) g/dL Albumin 3.6 (3.5-5.0) g/dL Lipase 26 (8-78) U/L Urine Color Urine Appearance Urine pH (5.0-9.0) Ur Specific [place] (1.005-1.025) Urine Protein (Neg-Trace) mg/dL Urine Glucose (UA) (Negative) mg/dL Urine Ketones (Negative) mg/dL Urine Blood (Negative) Urine Nitrite (Negative) Ur Leukocyte Esterase (Negative) Influenza Type A (PCR) NEGATIVE (Negative) Influenza Type B (PCR) NEGATIVE (Negative) RSV RNA Qual (PCR) NEGATIVE (Negative) SARS-CoV-2 RNA (RT-PCR) NEGATIVE (Negative) 08/16/24 Range/Units 08:36 WBC (4.8-10.8) X10*3/uL RBC (4.60-5.80) X10*6/uL Hgb (14.0-18.0) g/dl Hct (42.0-52.0) % MCV (80.0-98.0) fL MCH (27.0-33.0) pg MCHC (31.0-36.0) g/dl RDW (11.0-16.0) % Plt Count (160-400) X10*3/uL MPV (9.4-12.4) fL Immature Gran % (Auto) (0.0-0.4) % Neut % (Auto) (45-73) % Lymph % (Auto) (20-40) % [place] % (Auto) (2-11) % Eos % (Auto) (0-4) % Baso % (Auto) (0-2) % Lymph # (Auto) (1.2-4.9) X10*3/uL [place] # (Auto) (0.1-1.2) X10*3/uL Eos # (Auto) (0.0-0.4) X10*3/uL Baso # (Auto) (0.0-0.2) X10*3/uL Abs Immat Gran (auto) (0.00-0.03) X10*3/uL Absolute Neuts (auto) (2.0-8.3) x10*3/uL Absolute Nucleated RBC (0.0-0.012) X10*3/uL Nucleated RBC % (auto) (0.0-0.2) /100WBC PT (10.9-12.4) SEC INR (0.9-1.1) VBG pH (7.32-7.43) VBG pCO2 mmHg VBG pO2 mmHg VBG HCO3 (22-26) mmol/L VBG O2 Saturation % VBG Base Excess mmol/L Sodium (135-145) mmol/L Potassium (3.3-5.1) mmol/L Chloride (96-108) mmol/L Carbon Dioxide (22-29) mmol/L Anion Gap (12-20) BUN (9-16) mg/dL Creatinine (0.5-1.4) mg/dL Estim Creat Clear Calc Estimated GFR Random Glucose (60-115) mg/dL Lactic Acid (0.5-2.0) mmol/L Calcium (8.4-10.2) mg/dL Magnesium (1.6-2.6) mg/dL Total Bilirubin (0.0-1.0) mg/dL AST (5-37) U/L ALT (0-40) U/L Alkaline Phosphatase (39-117) U/L Troponin I High Sens (<3.5-35.0) ng/L Total Protein (6.5-8.0) g/dL Albumin (3.5-5.0) g/dL Lipase (8-78) U/L Urine Color Yellow Urine Appearance Clear Urine pH 6.5 (5.0-9.0) Ur Specific [place] 1.020 (1.005-1.025) Urine Protein Negative (Neg-Trace) mg/dL Urine Glucose (UA) Negative (Negative) mg/dL Urine Ketones Negative (Negative) mg/dL Urine Blood Negative (Negative) Urine Nitrite Negative (Negative) Ur Leukocyte Esterase Negative (Negative) Influenza Type A (PCR) (Negative) Influenza Type B (PCR) (Negative) RSV RNA Qual (PCR) (Negative) SARS-CoV-2 RNA (RT-PCR) (Negative) Independent Interpretation I performed an independent interpretation of an: CT Scan (Bilateral lower lobe consolidations, gaseous distention of the stomach) Radiology Impression Discussion of test interpretation with radiology: I have reviewed the radiologist's reading. Radiologist Impression: CT/CT chest w IV con IMPRESSION: 1. Extensive consolidation is seen in both lower lobes and to a lesser extent in the right upper lobe, suspicious for multifocal pneumonia. There is also diffuse abnormal thickening and small associated nodularity, suggesting diffuse ileus associated inflammatory changes. 2. Abnormal 1.2 cm lymph node in the azygos esophageal recess, likely reactive. 3. Gaseous distention of the stomach with air-fluid level seen, possibly related to aerophagia or gastroparesis. No definite obstructing mass is seen. 4. Cholelithiasis with no evidence of acute cholecystitis or biliary obstruction. 5. Moderate-sized fat-containing umbilical hernia. 6. Moderate to severe atherosclerotic vascular disease, including coronary arteries. Independent Historian Clinical information obtained from an independent historian. History obtained from or confirmed by: EMS External Record Review External record reviewed: Outpatient record Chronic Conditions Patient?s care impacted by: Other (See narrative above) Critical Care Time Critical Care Time Critical Care Time: Yes Total Critical Care Time: 35 Attestation: I personally attest to this critical care time spent taking care of the patient exclusive of all other billable procedures was approximately 35 minutes including initial evaluation of patient, ordering tests, CT interpretation, acute hypoxic respiratory failure management, medical consultation, documentation, re-evaluation. Discharge Plan Discharge Clinical Impression: Acute hypoxemic respiratory failure, Multifocal pneumonia Patient Disposition: Admitted As Inpatient Print Language: [place]
[2024-08-16 07:25] LABS: MANUAL DIFF FLAG NO
[2024-08-16 07:33] LABS: Basophils Percent Auto 0.1 % (0-2); Hematocrit 39.9 % (42.0-52.0); Hemoglobin 13.6 g/dl (14.0-18.0); Imm Gran Abs Auto 0.03 X10*3/uL (0.00-0.03); Imm Gran Pct Auto 0.2 % (0.0-0.4); Lymphocytes Absolute Auto 0.8 X10*3/uL (1.2-4.9); Lymphocytes Percent Auto 6.9 % (20-40); Mean Corpuscular HGB Conc 34.1 g/dl (31.0-36.0); Mean Corpuscular Hemoglobin 29.2 pg (27.0-33.0); Mean Corpuscular Volume 85.8 fL (80.0-98.0); Mean Platelet Volume 9.7 fL (9.4-12.4); Monocytes Absolute Auto 0.8 X10*3/uL (0.1-1.2); Monocytes Percent Auto 6.6 % (2-11); Neutrophils Absolute Auto 10.4 x10*3/uL (2.0-8.3); Neutrophils Percent Auto 86.2 % (45-73); Platelet Count 334 X10*3/uL (160-400); Red Blood Count 4.65 X10*6/uL (4.60-5.80)
[2024-08-16 07:34] LABS: VBG Base Excess -0.9 mmol/L; VBG HCO3 21 mmol/L (22-26); VBG pCO2 29 mmHg; VBG pH 7.46 (7.32-7.43); VBG pO2 171 mmHg
[2024-08-16 07:37] LABS: INTERNATIONAL NORM RATIO 1.3 (0.9-1.1); Prothrombin Time 15.5 SEC (10.9-12.4)
[2024-08-16] MEDS: Acetaminophen Supp 650 MG SUPP.RECT PR (07:44)
[2024-08-16] MEDS: 0.9 % Sodium Chloride 250 ML 999 ML IV (07:44)
[2024-08-16 07:45] LABS: Lactic Acid 1.7 mmol/L (0.5-2.0)
[2024-08-16] MEDS: cefTRIAXone sodium 1 GM VIAL IVPUSH (07:45)
[2024-08-16 07:46] LABS: Alanine Aminotransferase 11 U/L (0-40); Albumin Level 3.6 g/dL (3.5-5.0); Alkaline Phosphatase 97 U/L (39-117); Anion Gap 15 (12-20); Aspartate Amino Transferase 13 U/L (5-37); Bilirubin Total 0.6 mg/dL (0.0-1.0); Blood Urea Nitrogen 18 mg/dL (9-16); Calcium 9.4 mg/dL (8.4-10.2); Carbon Dioxide 21 mmol/L (22-29); Chloride 105 mmol/L (96-108); Creatinine Clr Calc Pharmacy 104.5; Estimated Glomerular Filt Rate > 60; Glucose Random 283 mg/dL (60-115); Lipase 26 U/L (8-78); Potassium 3.7 mmol/L (3.3-5.1); Sodium 137 mmol/L (135-145); Total Protein 7.3 g/dL (6.5-8.0)
[2024-08-16 07:51] LABS: Venous Blood Gas Refer to POC result
[2024-08-16 08:05] LABS: Influenza A PCR NEGATIVE (Negative); Influenza B PCR NEGATIVE (Negative); Resp Syncy Virus RNA Qual PCR NEGATIVE (Negative); SARS COV2 PCR INHOUSE NEGATIVE (Negative)
[2024-08-16 08:13] LABS: Troponin-I High Sensitivity 4.8 ng/L (<3.5-35.0)
[2024-08-16] MEDS: iohexoL 350 MG/ML 100 ML INFUS..BTL IV (08:24)
[2024-08-16 08:56] LABS: Appearance Urine Clear; Color Urine Yellow; Glucose Urine UA Negative (Negative); Leukocyte Esterase Urine Negative (Negative); Nitrite Urine Negative (Negative); PH 6.5 (5.0-9.0); Urine Blood Negative (Negative); Urine Ketones Negative (Negative); Urine Protein Negative (Neg-Trace)
[2024-08-16] MEDS: metroNIDAZOLE/NS 500 MG/100 ML PIGGYBACK 100 MG IV ×2 (09:50→17:06)
--- NOTE | 2024-08-16 11:24 | P.HPHOSP_ITS ---
History of Present Illness Date of Service: 08/16/24 Attending physician on admission: Tiffany Rachel Chief Complaint: SOB, AMS Pt is a 74-year-old male with a PMH significant for?CHF, DVT/PE on Eliquis, benign brain tumor s/p resection 2017, HTN, HLD, [id number] type 2 diabetes, BPH, Alzheimer's dementia nonverbal and primarily bed-bound at baseline, transfers with Jimy lift who presents to the ED from [facility] for concerns of recent change in mental status, wheezing, and hypoxia to the 80s on room air. Staff report patient has been had at least 3 episodes of vomiting with brown-yellowish emesis with coughing. Patient is a known aspiration risk. Patient seen and evaluated at bedside where he was somnolent but arousable to sternal rub, though falls immediately back to sleep. Nonverbal and non participatory in interview and examination. In the ED pt was febrile up to 100.6, tachycardic up to 113, tachypneic up to 34, and desatting into the 80s on RA, improved to 95% on 5L OxyMask. Labs were significant for leukocytosis 12.0, VB pH 7.46, and bicarb 21, otherwise grossly unremarkable and around baseline for patient. Stable H&H. No significant electrolyte abnormalities. Lactic acid WNL at 1.7. Kidney and hepatic function WNL. UA negative for UTI. Tested negative for COVID, RSV, flu. CT?of chest shows extensive consolidation in both lower lobes and in right upper lobe, suspicious for multifocal pneumonia. CT of gaseous distention of the stomach possibly related to aerophagia or gastroparesis. EKG demonstrated Pt was treated with acetaminophen, IVF, ceftriaxone, and metronidazole. Pt will be admitted to the hospital treatment and further evaluation of acute hypoxic respiratory failure in the setting of multifocal aspiration pneumonia with sepsis. Review of Systems 2 Review of Systems: Yes Unobtainable due to mental status [facility] Medical History (Updated 08/16/24 @ 12:27 by BENJAMIN Edwards) Bilateral pulmonary embolism DVT (deep venous thrombosis) Benign brain tumor Hypertension BPH (benign prostatic hyperplasia) Non-insulin dependent type 2 diabetes mellitus Alzheimer's dementia Social History Smoked in Last 30 Days: No Use of substances other than those prescribed or required for medical reasons: No Advance Directives: No Do you have a plan to hurt others: No Plan Meds Allergies Allergy/AdvReac Type Severity Reaction Status Date / Time No Known Allergies Allergy Verified 08/16/24 06:59 Physical Exam 2 Vital Signs and Narrative: Vital Signs: Last Vital Signs Temp 99.7 F 08/16/24 10:33 Pulse 85 08/16/24 10:33 Resp 20 08/16/24 10:33 BP 123/62 08/16/24 10:33 Pulse Ox 98 08/16/24 10:33 O2 Del Method Nasal Cannula 08/16/24 10:33 O2 Flow Rate 5 08/16/24 10:33 BMI result Body Mass Index 40.7 General: Somnolent but arousable, falling immediately back asleep during interview and exam. Nonverbal, nonpitting respiratory and exam. In no acute distress Resp: Diffuse rhonchi bilaterally. CVS: S1, S2, RRR GI: +BS, NT, mild distention Skin: Warm, dry. Area on bilateral buttocks. As pictured below Neuro: Motor grossly intact bilaterally. Extremities: Nonpitting bilateral edema Results Labs 08/16/24 07:18 08/16/24 07:18 Labs: Laboratory Results - last 24 hr 08/16/24 08/16/24 08/16/24 07:18 07:19 07:28 MCV 85.8 MCH 29.2 MCHC 34.1 RDW 13.0 Plt Count 334 D MPV 9.7 Immature Gran % (Auto) 0.2 Neut % (Auto) 86.2 H Lymph % (Auto) 6.9 L [place] % (Auto) 6.6 Eos % (Auto) 0.0 Baso % (Auto) 0.1 Lymph # (Auto) 0.8 L [place] # (Auto) 0.8 Eos # (Auto) 0.0 Baso # (Auto) 0.0 Abs Immat Gran (auto) 0.03 Absolute Neuts (auto) 10.4 H Absolute Nucleated RBC 0.000 Nucleated RBC % (auto) 0.0 PT 15.5 H INR 1.3 H VBG pH 7.46 H VBG pCO2 29 VBG pO2 171 VBG HCO3 21 L VBG O2 Saturation 100.0 VBG Base Excess -0.9 Anion Gap 15 Estim Creat Clear Calc 104.5 Estimated GFR > 60 Random Glucose 283 H Lactic Acid 1.7 Calcium 9.4 Magnesium 2.0 Total Bilirubin 0.6 AST 13 ALT 11 Alkaline Phosphatase 97 Troponin I High Sens 4.8 Total Protein 7.3 Albumin 3.6 Lipase 26 Urine Color Urine Appearance Urine pH Ur Specific [place] Urine Protein Urine Glucose (UA) Urine Ketones Urine Blood Urine Nitrite Ur Leukocyte Esterase Influenza Type A (PCR) NEGATIVE Influenza Type B (PCR) NEGATIVE RSV RNA Qual (PCR) NEGATIVE SARS-CoV-2 RNA (RT-PCR) NEGATIVE 08/16/24 08:36 MCV MCH MCHC RDW Plt Count MPV Immature Gran % (Auto) Neut % (Auto) Lymph % (Auto) [place] % (Auto) Eos % (Auto) Baso % (Auto) Lymph # (Auto) [place] # (Auto) Eos # (Auto) Baso # (Auto) Abs Immat Gran (auto) Absolute Neuts (auto) Absolute Nucleated RBC Nucleated RBC % (auto) PT INR VBG pH VBG pCO2 VBG pO2 VBG HCO3 VBG O2 Saturation VBG Base Excess Anion Gap Estim Creat Clear Calc Estimated GFR Random Glucose Lactic Acid Calcium Magnesium Total Bilirubin AST ALT Alkaline Phosphatase Troponin I High Sens Total Protein Albumin Lipase Urine Color Yellow Urine Appearance Clear Urine pH 6.5 Ur Specific [place] 1.020 Urine Protein Negative Urine Glucose (UA) Negative Urine Ketones Negative Urine Blood Negative Urine Nitrite Negative Ur Leukocyte Esterase Negative Influenza Type A (PCR) Influenza Type B (PCR) RSV RNA Qual (PCR) SARS-CoV-2 RNA (RT-PCR) Imaging Radiologist's Impressions: Impressions Chest CT 08/16/24 07:09 IMPRESSION: 1. Extensive consolidation is seen in both lower lobes and to a lesser extent in the right upper lobe, suspicious for multifocal pneumonia. There is also diffuse abnormal thickening and small associated nodularity, suggesting diffuse ileus associated inflammatory changes. 2. Abnormal 1.2 cm lymph node in the azygos esophageal recess, likely reactive. 3. Gaseous distention of the stomach with air-fluid level seen, possibly related to aerophagia or gastroparesis. No definite obstructing mass is seen. 4. Cholelithiasis with no evidence of acute cholecystitis or biliary obstruction. 5. Moderate-sized fat-containing umbilical hernia. 6. Moderate to severe atherosclerotic vascular disease, including coronary arteries. Electronically signed by: Rehana Drew MD 08/16/2024 09:10 AM [facility] Abdomen/Pelvis CT 08/16/24 08:03 IMPRESSION: 1. Extensive consolidation is seen in both lower lobes and to a lesser extent in the right upper lobe, suspicious for multifocal pneumonia. There is also diffuse abnormal thickening and small associated nodularity, suggesting diffuse ileus associated inflammatory changes. 2. Abnormal 1.2 cm lymph node in the azygos esophageal recess, likely reactive. 3. Gaseous distention of the stomach with air-fluid level seen, possibly related to aerophagia or gastroparesis. No definite obstructing mass is seen. 4. Cholelithiasis with no evidence of acute cholecystitis or biliary obstruction. 5. Moderate-sized fat-containing umbilical hernia. 6. Moderate to severe atherosclerotic vascular disease, including coronary arteries. Electronically signed by: Rehana Drew MD 08/16/2024 09:10 AM EST Assessment and Plan (1) Multifocal pneumonia: Status: Acute (2) Acute hypoxemic respiratory failure: Status: Acute Plan Pt is a 74-year-old male with a PMH significant for?CHF, DVT/PE on Eliquis, benign brain tumor s/p resection 2017, HTN, HLD, [id number] type 2 diabetes, BPH, Alzheimer's dementia nonverbal and primarily bed-bound at baseline, transfers with Jimy lift who presents to the ED from [facility] for concerns of recent change in mental status, wheezing, and hypoxia to the 80s on room air. Pt will be admitted to the hospital treatment and further evaluation of acute hypoxic respiratory failure in the setting of multifocal aspiration pneumonia with sepsis. Acute hypoxic respiratory failure and metabolic encephalopathy in the setting of bilateral aspiration pneumonia with sepsis Patient with AMS, lethargy, desatting to the 80s on RA, rhonchi upon auscultation CT of chest showing extensive consolidation in both lower lobes and right upper lobe Meets sepsis criteria with tachycardia and tachypnea; lactic acid WNL, no hypotension, no severe features Patient given IVF and started on broad-spectrum antibiotics in the ED Will treat with ceftriaxone and Zosyn, started 08/16/2024 Aspiration precautions Titrate supplemental O2 >92, wean as tolerated Monitor mentation Question of gastroparesis CT showed gaseous distention of stomach, possibly related to aerophagia gastroparesis Patient on bowel rest for now We will give Reglan 2.5 mg IV t.i.d. Antiemetics Stage I decubitus ulcer Pt with area of erythema on bilateral buttocks Patient positioning q.2h, offload bony prominences Diet Patient high aspiration risk On pureed and honey thick diet at facility NPO diet for now Gentle IVF hydration, hx of CHF Will get speech bedside swallow evaluation Hx of DVT/PE On Eliquis from 04/28/2024-09/12/2024 Enoxaparin 60 mg b.i.d. while NPO Resume Eliquis when no longer NPO HLD Continue statin with no longer NPO Pbc-frpxmwa-sznwbympm type 2 diabetes Diabetic continue glipizide when no NPO Will place on sliding scale insulin Hold metformin HTN Continue labetalol lisinopril when no longer NPO BPH Continue finasteride, tamsulosin when no longer NPO DNR/DNI Attending:?Dr. Rachel DVT Prophylaxis: Lovenox Pt will require a hospitalization of at least two nights for treatment of?acute hypoxic respiratory failure and metabolic encephalopathy in the setting of multifocal aspiration pneumonia. Patient will require inpatient level care for administration of IV antibiotics, supplemental oxygen, and IV hydration. Quality Stroke Does the patient have a stroke diagnosis?: No VTE Prior VTE?: Yes VTE Risk Level:: Medical - moderate - high VTE Device Contraindication: Treatment Not Indicated VTE Drug Contraindication: N/A - Med Ordered
--- NOTE | 2024-08-16 11:25 | PC.NURSE ---
Pt biba from [facility] for increased SOB/AMS x2 days. Per staff, pt has hx of dementia but has had an increase in AMS the past few days, nausea/vomiting x2 days with decreased PO intake, and wheezing/aspirating. EMS found pt to be 86% on 2L NC baseline, placed on 15L NRB mask with good effect up to 92-93%. Pt switched to oxymask 5L upon arrival, maintaining O2 sat high 90s. Alert- not oriented, responds to verbal stimuli, not able to follow commands, rectal temp 100.6, HI Tylenol given. Pt tachypneic- RR 32-37, pt increased wob, productive cough with brown sputum, rhonchi/weezing heard bilaterally, sinus tach on disability aide- HR 100s. Sepsis alert called @ [phone] Straight cath per provider order- 250 mls output of clear/yellow urine, sent to lab. Pt transferred to hospital bed, incontinent of stool. Redness noted to coccyx area, picture sent to MD. Repositioned to left side, call duffy within reach, all needs met at this time.
[2024-08-16] MEDS: 0.9 % Sodium Chloride 1,000 ML 75 ML IVCONT (12:32)
--- NOTE | 2024-08-16 13:47 | PHA.MEDREC ---
Pharmacy Consult ? Medication Reconciliation Pharmacy has completed the medication reconciliation.Patient list of meds obtained from [facility]. notified med rec is complete.
[2024-08-16] MEDS: Enoxaparin Sodium 60 MG/0.6 ML SYRINGE SUBCUT (13:58)
[2024-08-16] MEDS: Metoclopramide HCl 10 MG/2 ML VIAL 2.5 MG IVPUSH ×2 (14:01→22:02)
[2024-08-16 16:36] LABS: Glucose, Whole Blood 210 mg/dL (60-115)
[2024-08-16] MEDS: 0.9 % Sodium Chloride Flush 3 ML SYRINGE IVFLUSH (22:12)
--- NOTE | 2024-08-16 23:30 | PC.NURSE ---
Patients Chest CT shows patient has multifocal PNA with severe Rhonchi and congestion, requested to get continuous pulse Ox ordered, He is on 5 L Oxy-mask and asked about respiratory or pulmonology consult? CT also shows gaseous distention of stomach, with possible diffuse ileus, asked about bowel regimen. Dr. Karimi made aware, new orders placed. pt placed on continuos pulse Ox.
[2024-08-17] VITALS (8 sets, daily range): BP systolic 123–142; BP diastolic 58–66; PULSE 77–96; RESP 16–18; TEMP 36.2–37.1; O2SAT 92–96
[2024-08-17] MEDS: 0.9 % Sodium Chloride 1,000 ML 75 ML IVCONT ×2 (01:57→20:43)
[2024-08-17] MEDS: metroNIDAZOLE/NS 500 MG/100 ML PIGGYBACK 100 MG IV ×3 (01:58→17:31)
[2024-08-17] MEDS: Enoxaparin Sodium 60 MG/0.6 ML SYRINGE SUBCUT ×2 (02:00→12:49)
[2024-08-17 06:37] LABS: Anion Gap 13 (12-20); Blood Urea Nitrogen 24 mg/dL (9-16); Calcium 8.6 mg/dL (8.4-10.2); Carbon Dioxide 20 mmol/L (22-29); Chloride 111 mmol/L (96-108); Creatinine Clr Calc Pharmacy 112.9; Estimated Glomerular Filt Rate > 60; Glucose Random 165 mg/dL (60-115); Potassium 3.9 mmol/L (3.3-5.1); Sodium 140 mmol/L (135-145)
[2024-08-17 07:58] LABS: Glucose, Whole Blood 143 mg/dL (60-115)
[2024-08-17] MEDS: Metoclopramide HCl 10 MG/2 ML VIAL 2.5 MG IVPUSH ×3 (08:58→20:08)
[2024-08-17] MEDS: cefTRIAXone sodium 1 GM VIAL IVPUSH (08:58)
[2024-08-17] MEDS: Labetalol HCL 200 MG TABLET PO (10:49)
[2024-08-17] MEDS: Folic Acid 1 MG TABLET PO (10:49)
[2024-08-17] MEDS: lisinopriL 5 MG TABLET PO (10:49)
[2024-08-17] MEDS: Memantine HCl 10 MG TABLET PO (10:50)
[2024-08-17] MEDS: Furosemide 20 MG TABLET PO (10:50)
--- NOTE | 2024-08-17 11:19 | MHC.SL.SWA ---
Speech Pathologist Impression: Risk of Aspiration Due to: Lethargy History of Pneumonia Reduced Cognition Dysphasia Diet Status: Liquid Consistency and Strategies for Safe Swallow: Liquid Intake Recommendation: Honey Thick Liquid Intake Strategies: Liquids by Teaspoon Only Solid Food Consistency: Dietary Recommendations: Pureed (NDD1) Additional Modifications to Solid Foods: Patient requires one to one feed with strict aspiration precautions. Do not attempt if patient is lethargic, or not engaged with meal. Patient has prolonged oral phase, may eat slowly. Check that patient has swallowed before presenting more food. All liquids by tsp only, 1-1 feeding. Oral Medication Intake: Crushed with Puree Please contact the pharmacy regarding appropriate crushable or liquid drug formulations that are available whenever modified delivery is recommended. Compensatory Strategies and Precautions to be Taken for Safe Swallow: Sitting Upright (90 deg) No Straw Liquids from Spoon Small Bites and Sips Alternate Liquids/Solids Rate of Ingestion Change Oral Check Supervision While Eating and Drinking for Safe Swallow: Total Assistance (1:1) Foods to Avoid: Mixed consistencies. Swallowing Recommended Treatments: Compens. Strategy Educat. Recommendation for Speech: Inpatient Speech Therapy Comment: Patient presents with a moderate to severe oral pharyngeal dysphagia, with a notable prolonged and disorganized oral phase of swallow. Recommend Start diet of Puree (NDD1) with HONEY THICK liquids, by TSP ONLY, pills crushed in puree. Diet is reportedly patient's baseline. Patient requires a careful 1-1 feeding with strict aspiration precautions. Do not attempt if patient is lethargic, or not engaged with meal. Patient has prolonged oral phase, may eat slowly. Check that patient has swallowed before presenting more food. LEE CANTU notified of recommendation by secure text, RN in person, white board in room changed to reflect recommendations. [employer] DIVISION OFFICER to follow. Frequency/Duration: M-F while inpatient. Date Range for Service Req: Timeline to reassess: Personal Development Coach Clinican/Clinical Fellow: No Supervisory Statement: I have reviewed and agree with the student/clinical fellow's documentation: N/A Speech Language Pathologist: Jessica Patel M.A., [facility]-[employer] DIV[employer] OFFICER
[2024-08-17] MEDS: Finasteride 5 MG TABLET PO (11:23)
[2024-08-17 11:50] LABS: Glucose, Whole Blood 121 mg/dL (60-115)
--- NOTE | 2024-08-17 15:25 | MHC.CM.PN ---
Addendum entered by Rajni Wan 08/17/24 15:40: IMM left at the bedside @ his wifes request. Original Note: IMM 08/17/24 DX PNA+sepsis Lives @ [facility] HCP invoked, on file +son HX Alzheimers non verbal Bed/WC bound. A Jimy is required to transfer. Patient is dependent will all aspects of care. DP return to the [facility] when medically cleared. Patient will transport via BLS.
--- NOTE | 2024-08-17 15:26 | HO.PM.IMPN ---
Subjective Subjective Date of Service: 08/17/24 Interval History: No major changes since admission. Seen by speech therapy; recommendations implemented Review of Systems Unable to obtain Physical Exam Vital Signs: Vital Signs: Last Vital Signs Temp 98.2 F 08/17/24 11:51 Pulse 90 08/17/24 11:51 Resp 18 08/17/24 11:51 BP 128/62 08/17/24 11:51 Pulse Ox 93 08/17/24 11:51 O2 Del Method Oxymask 08/17/24 11:51 O2 Flow Rate 5 08/17/24 11:51 BMI result Body Mass Index 40.7 Const: Other: Awake alert nonverbal Resp: Other: Diminished throughout with scattered expiratory wheezes and coarse rhonchi Cardio: Other: No S4; positive S1-S2; no S3 murmurs rubs or gallops GI: Other: Soft nontender nondistended normoactive bowel sounds Extrem: Other: No edema bilaterally Objective Data Active Medications Acetaminophen (Acetaminophen Supp 650 Mg Supp.Rect) 650 mg VT Q6H PRN PRN Reason: Pain, Mild 1-3,fever,headache Acetaminophen (Acetaminophen 325 Mg Tablet) 650 mg PO Q4H PRN PRN Reason: Fever Or Pain Atorvastatin Calcium (Atorvastatin Calcium 20 Mg Tablet) 20 mg PO DAILY@1700 [facility] Ceftriaxone Sodium (Ceftriaxone Sodium 1 Gm Vial) 1 gm IVPUSH Q24H [facility] Last Admin: 08/17/24 08:58 Dose: 1 gm Documented By: MERYL Enoxaparin Sodium (Enoxaparin Sodium 60 Mg/0.6 Ml Syringe) 60 mg SUBCUT Q12H [facility] Last Admin: 08/17/24 12:49 Dose: 60 mg Documented By: MERYL Finasteride (Finasteride 5 Mg Tablet) 5 mg PO DAILY [facility] Last Admin: 08/17/24 11:23 Dose: 5 mg Documented By: MERYL Folic Acid (Folic Acid 1 Mg Tablet) 1 mg PO DAILY [facility] Last Admin: 08/17/24 10:49 Dose: 1 mg Documented By: MERYL Furosemide (Furosemide 20 Mg Tablet) 20 mg PO DAILY [facility]; Protocol Last Admin: 08/17/24 10:50 Dose: 20 mg Documented By: MERYL Glucose (Glucose Gel 15 Gm Gel..Gram.) 15 gm PO Q15M PRN; Protocol PRN Reason: per Hypoglycemia Standing Ord. Guaifenesin/Dextromethorphan (Guaifenesin Dm 100/10/5 Ml 5 Ml Syrup) 10 ml PO Q4H PRN PRN Reason: Cough Metronidazole (Flagyl) 500 mg in 100 mls @ 100 mls/hr IV Q8H [facility] Last Infusion: 08/17/24 12:37 Dose: Infused Documented By: MERYL Sodium Chloride (Ns) 1,000 mls @ 75 mls/hr IVCONT .[id number] [facility] Last Admin: 08/17/24 01:57 Dose: 75 mls/hr Documented By: ILANA Dextrose (D10) 250 mls @ 750 mls/hr IV Q15M PRN; Protocol PRN Reason: per Hypoglycemia Standing Ord. Insulin Human Lispro (Insulin Lispro 100 Unit/Ml 3 Ml Vial) 0 unit SUBCUT QIDACHS [facility]; Protocol Last Admin: 08/17/24 11:57 Dose: Not Given Documented By: MERYL Non-Admin Reason: No Insulin Coverage Labetalol HCl (Labetalol Hcl 200 Mg Tablet) 200 mg PO BID@0900,1700 [facility]; Protocol Last Admin: 08/17/24 10:49 Dose: 200 mg Documented By: MERYL Lisinopril (Lisinopril 5 Mg Tablet) 5 mg PO DAILY [facility]; Protocol Last Admin: 08/17/24 10:49 Dose: 5 mg Documented By: MERYL Memantine (Memantine Hcl 10 Mg Tablet) 10 mg PO DAILY [facility] Last Admin: 08/17/24 10:50 Dose: 10 mg Documented By: MERYL Metoclopramide HCl (Metoclopramide Hcl 10 Mg/2 Ml Vial) 2.5 mg IVPUSH TID [facility] Last Admin: 08/17/24 15:05 Dose: 2.5 mg Documented By: MERYL Ondansetron HCl (Ondansetron Hcl 4 Mg/2 Ml Vial) 4 mg IVPUSH Q8H PRN PRN Reason: Nausea and Vomiting Sodium Chloride (0.9 % Sodium Chloride Flush 3 Ml Syringe) 3 ml IVFLUSH QSHIFT [facility] Last Admin: 08/17/24 15:09 Dose: Not Given Documented By: MERYL Non-Admin Reason: IV Running Tamsulosin HCl (Tamsulosin Hcl 0.4 Mg Capsule) 0.4 mg PO DAILY [facility] Last Admin: 08/17/24 11:27 Dose: Not Given Documented By: MERYL Non-Admin Reason: cannot crush, pharmacy called Labs 08/16/24 07:18 08/17/24 05:34 Labs: Laboratory Results - last 24 hr 08/16/24 08/17/24 08/17/24 16:32 05:34 07:30 Anion Gap 13 Estim Creat Clear Calc 112.9 Estimated GFR > 60 POC Glucose 210 H 143 H Random Glucose 165 H Calcium 8.6 D 08/17/24 11:39 Anion Gap Estim Creat Clear Calc Estimated GFR POC Glucose 121 H Random Glucose Calcium Microbiology Microbiology Results: Microbiology 08/16/24 07:19 Blood Culture - Preliminary Blood - Venous No growth after 24 hours. 08/16/24 07:18 Blood Culture - Preliminary Blood - Venous No growth after 24 hours. Assessment and Plan (1) Multifocal pneumonia: Status: Acute (2) Acute hypoxemic respiratory failure: Status: Acute Plan Pt is a 74-year-old male with a PMH significant for?CHF, DVT/PE on Eliquis, benign brain tumor s/p resection 2017, HTN, HLD, iek-htfrsyd-iodklntel type 2 diabetes, BPH, Alzheimer's dementia nonverbal and primarily bed-bound at baseline, transfers with Jimy lift who presents to the ED from [place] for concerns of recent change in mental status, wheezing, and hypoxia to the 80s on room air. Pt will be admitted to the hospital treatment and further evaluation of acute hypoxic respiratory failure in the setting of multifocal aspiration pneumonia with sepsis. 1.Acute hypoxic respiratory failure and metabolic encephalopathy in the setting of bilateral aspiration pneumonia with sepsis(resolved) -ceftriaxone/ Zosyn, started (2) -Aspiration precautions -titrate supplemental O2 >92, wean as tolerated 2.Question of gastroparesis -seen by speech; diet recommendations implemented -follow clinically 3.Stage I decubitus ulcer (present on admission) -area of erythema on bilateral buttocks -positioning q.2h, offload bony prominences 4.Hx of DVT/PE -enoxaparin 60 mg b.i.d. while NPO -resume Eliquis when no longer NPO 5.Oqc-nzqkjlq-fiamwkgjq type 2 diabetes -hold oral agents while NPO -lispro correctional scale -adjust as indicated; add back oral therapies when appropriate 6.HTN -acceptable control on current therapy -adjust as indicated DNR/DNI Lovenox Patient requires ongoing hospitalization for IV antibiotics to treat aspiration pneumonia Quality Stroke Does the patient have a stroke diagnosis?: No VTE Prior VTE?: Yes VTE Risk Level:: Medical - moderate - high VTE Device Contraindication: Treatment Not Indicated VTE Drug Contraindication: N/A - Med Ordered
[2024-08-17 15:59] LABS: INTERNATIONAL NORM RATIO 1.5 (0.9-1.1); Prothrombin Time 17.3 SEC (10.9-12.4)
[2024-08-17 16:15] LABS: Glucose, Whole Blood 138 mg/dL (60-115)
--- NOTE | 2024-08-17 16:48 | PM.EVENT ---
Event Note Date of Service: 08/17/24 Event Note: Seen by speech earlier today and deemed appropriate for diet as outlined. Text from nurse rebecca; suction all meds out of his mouth unable to swallow. We will make NPO overnight and ask speech to re-evaluate in a.m. Time Spent With Patient Time: Total time managing care of this patient today ____ minutes.
--- NOTE | 2024-08-17 16:50 | PC.NURSE ---
Upon giving 1700 PO meds (crushed in puree per speech recommendations - pt kept pills in mouth wouldn't swallow with instruction to do so. RN had to suction pillsin puree out of pt mouth. notified- stated he will make pt NPO
[2024-08-17 20:20] LABS: Glucose, Whole Blood 129 mg/dL (60-115)
[2024-08-18] VITALS (7 sets, daily range): BP systolic 124–145; BP diastolic 58–73; PULSE 73–96; RESP 12–18; TEMP 36.2–36.9; O2SAT 95–99
[2024-08-18] MEDS: Enoxaparin Sodium 60 MG/0.6 ML SYRINGE SUBCUT ×2 (00:34→12:18)
[2024-08-18] MEDS: metroNIDAZOLE/NS 500 MG/100 ML PIGGYBACK 100 MG IV ×3 (01:42→17:28)
[2024-08-18 06:42] LABS: Alanine Aminotransferase < 6 U/L (0-40); Albumin Level 2.7 g/dL (3.5-5.0); Alkaline Phosphatase 58 U/L (39-117); Anion Gap 14 (12-20); Aspartate Amino Transferase 21 U/L (5-37); Bilirubin Total 0.2 mg/dL (0.0-1.0); Blood Urea Nitrogen 33 mg/dL (9-16); Calcium 8.2 mg/dL (8.4-10.2); Carbon Dioxide 22 mmol/L (22-29); Chloride 115 mmol/L (96-108); Creatinine Clr Calc Pharmacy 122.7; Estimated Glomerular Filt Rate > 60; Glucose Fasting 151 mg/dL (60-99); Potassium 3.6 mmol/L (3.3-5.1); Sodium 147 mmol/L (135-145); Total Protein 5.5 g/dL (6.5-8.0)
[2024-08-18 07:51] LABS: Glucose, Whole Blood 141 mg/dL (60-115)
[2024-08-18] MEDS: cefTRIAXone sodium 1 GM VIAL IVPUSH (08:10)
[2024-08-18] MEDS: Metoclopramide HCl 10 MG/2 ML VIAL 2.5 MG IVPUSH ×3 (08:10→20:37)
[2024-08-18] MEDS: Dextrose 5 % 1,000 ML 100 ML IVCONT ×2 (09:12→18:31)
[2024-08-18 09:31] LABS: Basophils Percent Auto 0.2 % (0-2); Eosinophils Percent Auto 0.3 % (0-4); Hematocrit 28.5 % (42.0-52.0); Hemoglobin 9.4 g/dl (14.0-18.0); Imm Gran Abs Auto 0.08 X10*3/uL (0.00-0.03); Imm Gran Pct Auto 0.8 % (0.0-0.4); Lymphocytes Absolute Auto 2.2 X10*3/uL (1.2-4.9); Lymphocytes Percent Auto 21.2 % (20-40); Mean Corpuscular Hemoglobin 29.4 pg (27.0-33.0); Mean Corpuscular Volume 89.1 fL (80.0-98.0); Mean Platelet Volume 9.6 fL (9.4-12.4); Monocytes Absolute Auto 0.5 X10*3/uL (0.1-1.2); Monocytes Percent Auto 5.2 % (2-11); Neutrophils Absolute Auto 7.3 x10*3/uL (2.0-8.3); Neutrophils Percent Auto 72.3 % (45-73); Platelet Count 242 X10*3/uL (160-400); Red Cell Distribution Width 13.3 % (11.0-16.0); White Blood Count 10.1 X10*3/uL (4.8-10.8)
[2024-08-18 09:32] LABS: MANUAL DIFF FLAG NO
[2024-08-18 12:07] LABS: Glucose, Whole Blood 143 mg/dL (60-115)
--- NOTE | 2024-08-18 13:23 | MHC.CM.PN ---
PT NOT YET MEDICALLY CLEARED DCP: RETURN TO [facility] VIA BLS
--- NOTE | 2024-08-18 14:09 | HO.PM.IMPN ---
Subjective Subjective Date of Service: 08/18/24 Interval History: No acute changes overnight. Re-evaluate by speech who recommends NPO Review of Systems Unable to obtain Physical Exam Vital Signs: Vital Signs: Last Vital Signs Temp 97.6 F 08/18/24 12:00 Pulse 81 08/18/24 12:00 Resp 18 08/18/24 12:00 BP 133/63 08/18/24 12:00 Pulse Ox 96 08/18/24 12:00 O2 Del Method Oxymask 08/18/24 12:00 O2 Flow Rate 5 08/18/24 12:00 BMI result Body Mass Index 40.7 Const: Other: Awake alert nonverbal Resp: Other: Diminished throughout with scattered expiratory wheezes and coarse rhonchi Cardio: Other: No S4; positive S1-S2; no S3 murmurs rubs or gallops GI: Other: Soft nontender nondistended normoactive bowel sounds Extrem: Other: No edema bilaterally Objective Data Active Medications Acetaminophen (Acetaminophen Supp 650 Mg Supp.Rect) 650 mg [place] Q6H PRN PRN Reason: Pain, Mild 1-3,fever,headache Acetaminophen (Acetaminophen 325 Mg Tablet) 650 mg PO Q4H PRN PRN Reason: Fever Or Pain Atorvastatin Calcium (Atorvastatin Calcium 20 Mg Tablet) 20 mg PO DAILY@1700 [facility] Last Admin: 08/17/24 16:50 Dose: Not Given Documented By: SUDHIR Non-Admin Reason: unable to get down Ceftriaxone Sodium (Ceftriaxone Sodium 1 Gm Vial) 1 gm IVPUSH Q24H [facility] Last Admin: 08/18/24 08:10 Dose: 1 gm Documented By: MERYL Enoxaparin Sodium (Enoxaparin Sodium 60 Mg/0.6 Ml Syringe) 60 mg SUBCUT Q12H [facility] Last Admin: 08/18/24 12:18 Dose: 60 mg Documented By: MERYL Finasteride (Finasteride 5 Mg Tablet) 5 mg PO DAILY [facility] Last Admin: 08/18/24 10:27 Dose: Not Given Documented By: MERYL Non-Admin Reason: NPO Folic Acid (Folic Acid 1 Mg Tablet) 1 mg PO DAILY [facility] Last Admin: 08/18/24 10:27 Dose: Not Given Documented By: MERYL Non-Admin Reason: NPO Furosemide (Furosemide 20 Mg Tablet) 20 mg PO DAILY [facility]; Protocol Last Admin: 12/27/24 10:27 Dose: Not Given Documented By: MERYL Non-Admin Reason: NPO Glucose (Glucose Gel 15 Gm Gel..Gram.) 15 gm PO Q15M PRN; Protocol PRN Reason: per Hypoglycemia Standing Ord. Guaifenesin/Dextromethorphan (Guaifenesin Dm 100/10/5 Ml 5 Ml Syrup) 10 ml PO Q4H PRN PRN Reason: Cough Metronidazole (Flagyl) 500 mg in 100 mls @ 100 mls/hr IV Q8H [facility] Last Infusion: 08/18/24 12:20 Dose: Infused Documented By: MERYL Dextrose (D10) 250 mls @ 750 mls/hr IV Q15M PRN; Protocol PRN Reason: per Hypoglycemia Standing Ord. Dextrose (D5w) 1,000 mls @ 100 mls/hr IVCONT .Q10H [facility] Last Admin: 08/18/24 09:12 Dose: 100 mls/hr Documented By: MERYL Insulin Human Lispro (Insulin Lispro 100 Unit/Ml 3 Ml Vial) 0 unit SUBCUT QIDACHS [facility]; Protocol Last Admin: 08/18/24 12:14 Dose: Not Given Documented By: MERYL Non-Admin Reason: No Insulin Coverage Labetalol HCl (Labetalol Hcl 200 Mg Tablet) 200 mg PO BID@0900,1700 [facility]; Protocol Last Admin: 08/18/24 10:27 Dose: Not Given Documented By: MERYL Non-Admin Reason: NPO Lisinopril (Lisinopril 5 Mg Tablet) 5 mg PO DAILY [facility]; Protocol Last Admin: 08/18/24 10:28 Dose: Not Given Documented By: MERYL Non-Admin Reason: NPO Memantine (Memantine Hcl 10 Mg Tablet) 10 mg PO DAILY [facility] Last Admin: 08/18/24 10:28 Dose: Not Given Documented By: MERYL Non-Admin Reason: NPO Metoclopramide HCl (Metoclopramide Hcl 10 Mg/2 Ml Vial) 2.5 mg IVPUSH TID [facility] Last Admin: 08/18/24 08:10 Dose: 2.5 mg Documented By: MERYL Ondansetron HCl (Ondansetron Hcl 4 Mg/2 Ml Vial) 4 mg IVPUSH Q8H PRN PRN Reason: Nausea and Vomiting Sodium Chloride (0.9 % Sodium Chloride Flush 3 Ml Syringe) 3 ml IVFLUSH QSHIFT [facility] Last Admin: 08/18/24 07:18 Dose: Not Given Documented By: MERYL Non-Admin Reason: IV Running Tamsulosin HCl (Tamsulosin Hcl 0.4 Mg Capsule) 0.4 mg PO DAILY [facility] Last Admin: 08/18/24 10:28 Dose: Not Given Documented By: MERYL Non-Admin Reason: NPO Labs 08/18/24 09:09 08/18/24 05:40 Labs: Laboratory Results - last 24 hr 08/17/24 08/17/24 08/17/24 15:38 16:12 20:10 MCV MCH MCHC RDW Plt Count MPV Immature Gran % (Auto) Neut % (Auto) Lymph % (Auto) [place] % (Auto) Eos % (Auto) Baso % (Auto) Lymph # (Auto) [place] # (Auto) Eos # (Auto) Baso # (Auto) Abs Immat Gran (auto) Absolute Neuts (auto) Absolute Nucleated RBC Nucleated RBC % (auto) PT 17.3 H INR 1.5 H Anion Gap Estim Creat Clear Calc Estimated GFR POC Glucose 138 H 129 H Fasting Glucose Calcium Total Bilirubin AST ALT Alkaline Phosphatase Total Protein Albumin 08/18/24 08/18/24 08/18/24 05:40 07:31 09:09 MCV 89.1 MCH 29.4 MCHC 33.0 RDW 13.3 Plt Count 242 D MPV 9.6 Immature Gran % (Auto) 0.8 H Neut % (Auto) 72.3 Lymph % (Auto) 21.2 [place] % (Auto) 5.2 Eos % (Auto) 0.3 Baso % (Auto) 0.2 Lymph # (Auto) 2.2 [place] # (Auto) 0.5 Eos # (Auto) 0.0 Baso # (Auto) 0.0 Abs Immat Gran (auto) 0.08 H Absolute Neuts (auto) 7.3 Absolute Nucleated RBC 0.000 Nucleated RBC % (auto) 0.0 PT INR Anion Gap 14 Estim Creat Clear Calc 122.7 Estimated GFR > 60 POC Glucose 141 H Fasting Glucose 151 H Calcium 8.2 L Total Bilirubin 0.2 AST 21 ALT < 6 Alkaline Phosphatase 58 Total Protein 5.5 L Albumin 2.7 L 08/18/24 11:59 MCV MCH MCHC RDW Plt Count MPV Immature Gran % (Auto) Neut % (Auto) Lymph % (Auto) [place] % (Auto) Eos % (Auto) Baso % (Auto) Lymph # (Auto) [place] # (Auto) Eos # (Auto) Baso # (Auto) Abs Immat Gran (auto) Absolute Neuts (auto) Absolute Nucleated RBC Nucleated RBC % (auto) PT INR Anion Gap Estim Creat Clear Calc Estimated GFR POC Glucose 143 H Fasting Glucose Calcium Total Bilirubin AST ALT Alkaline Phosphatase Total Protein Albumin Microbiology Microbiology Results: Microbiology 08/16/24 07:19 Blood Culture - Preliminary Blood - Venous No growth after 48 hours. 08/16/24 07:18 Blood Culture - Preliminary Blood - Venous No growth after 48 hours. Assessment and Plan (1) Multifocal pneumonia: Status: Acute Plan Pt is a 74-year-old male with a PMH significant for?CHF, DVT/PE on Eliquis, benign brain tumor s/p resection 2016, HTN, HLD, nxs-yugawwq-jqwizqjee type 2 diabetes, BPH, Alzheimer's dementia nonverbal and primarily bed-bound at baseline, transfers with Jimy lift who presents to the ED from [place] for concerns of recent change in mental status, wheezing, and hypoxia to the 80s on room air. Pt will be admitted to the hospital treatment and further evaluation of acute hypoxic respiratory failure in the setting of multifocal aspiration pneumonia with sepsis. 1.Acute hypoxic respiratory failure and metabolic encephalopathy in the setting of bilateral aspiration pneumonia with sepsis(resolved) -ceftriaxone/ Zosyn, started (3) -seen by speech. .. Recommend NPO. We will discuss 's wishes and pursue -titrate supplemental O2 >92, wean as tolerated 2.Stage I decubitus ulcer (present on admission) -area of erythema on bilateral buttocks -positioning q.2h, offload bony prominences 3..Hx of DVT/PE -enoxaparin 60 mg b.i.d. while NPO -resume Eliquis when no longer NPO 5.Inh-mxnniks-axantqcqy type 2 diabetes -hold oral agents while NPO -lispro correctional scale -adjust as indicated; add back oral therapies when appropriate 6.HTN -acceptable control on current therapy -adjust as indicated DNR/DNI Lovenox Patient requires ongoing hospitalization for IV antibiotics to treat aspiration pneumonia Quality Stroke Does the patient have a stroke diagnosis?: No VTE Prior VTE?: Yes VTE Risk Level:: Medical - moderate - high VTE Device Contraindication: Treatment Not Indicated VTE Drug Contraindication: N/A - Med Ordered
[2024-08-18 16:18] LABS: Glucose, Whole Blood 139 mg/dL (60-115)
--- NOTE | 2024-08-18 16:57 | MHC.SL.SWA ---
Speech Pathologist Impression: Severe oropharyngeal dysphagia Risk of Aspiration Due to: Lethargy History of Pneumonia Reduced Cognition Dysphasia Diet Status: DOWNGRADE TO NPO Liquid Consistency and Strategies for Safe Swallow: Liquid Intake Recommendation: NPO Solid Food Consistency: Dietary Recommendations: NPO Additional Modifications to Solid Foods: Patient w/ severe oropharyngeal dysphagia, initially evaluated 08/17 and started on baseline diet of purees/honey thick liquid to be administered via tspn only. Per RN, patient was downgraded to NPO at dinner time as he would not swallow, pocketed puree with medication in his cheeks, and required oral suctioning. Patient was re-evaluated by [facility] this morning per MD request and continues to present with significant difficulties. Disorganized oral phase with prolonged chewing on purees and thickened liquid, suspect posterior escape with tongue pumping. Patient with significantly delayed, at times absent swallow trigger and gurgly cough after swallowing. Recommend CONTINUE NPO at this time. Discussed w/ Dr. Peguero. Consider alternate means of feeding (temporary vs. rat exterminator) if difficulties persist. [facility] is available for call-in over the weekend, otherwise will plan to re-assess Wednesday a.m. Oral Medication Intake: NPO Please contact the pharmacy regarding appropriate crushable or liquid drug formulations that are available whenever modified delivery is recommended. Supervision While Eating and Drinking for Safe Swallow: PO with [facility] Swallowing Recommended Treatments: Compens. Strategy Educat. Recommendation for Speech: Inpatient Speech Therapy Frequency/Duration: M-F while inpatient. Date Range for Service Req: Timeline to reassess: Radio Officer Clinican/Clinical Fellow: No Supervisory Statement: I have reviewed and agree with the student/clinical fellow's documentation: N/A Speech Language Pathologist: Kanika Tran M.A., [facility]
--- NOTE | 2024-08-18 18:03 | P.CDIM_ITS ---
PROVIDER RESPONSE TEXT: To clarify, the appropriate diagnosis supported by the clinical indicators: Obesity Due to excess calories QUERY TEXT: PHYSICIAN'S DOCUMENTATION REQUEST Date of Query: 08/18/2024 06:23 AM EST Patient Name: Ethan Beyer Admit Date: 08/16/2024 Dear John Peguero DO, A review of the medical record indicates additional documentation may be needed. Please review below and update the documentation accordingly. Clinical Indicators: Height: 5ft 9in Weight: 124.9kg BMI: 40.7 If possible, please provide an associated diagnosis related to the abnormal BMI, such as: Obesity Due to excess calories Obesity Drug induced Morbid Obesity Other (explain) Clinically unable to determine (explain) Thank you, Seema Scott, CCS, CDIS Use of terms such as suspected, likely, concern for, or probable (associated with a specific diagnosi s that is being evaluated, monitored, or treated as if it exists) are acceptable and can be coded in the inpatient se tting, when documented at the time of discharge. Please use your independent medical judgment in providing your response. THIS QUERY IS PART OF THE PERMANENT MEDICAL RECORD
[2024-08-18 20:18] LABS: Glucose, Whole Blood 158 mg/dL (60-115)
[2024-08-18] MEDS: 0.9 % Sodium Chloride Flush 3 ML SYRINGE IVFLUSH (20:38)
[2024-08-19] MEDS: Dextrose 5 % 1,000 ML 100 ML IVCONT ×3 (02:17→22:42)
[2024-08-19] MEDS: Enoxaparin Sodium 60 MG/0.6 ML SYRINGE SUBCUT ×2 (02:17→12:40)
[2024-08-19] MEDS: metroNIDAZOLE/NS 500 MG/100 ML PIGGYBACK 100 MG IV ×3 (02:18→17:34)
[2024-08-19 03:30] VITALS: BP 127/61; PULSE 60; RESP 18; TEMP 36.3; O2SAT 95
[2024-08-19 07:16] VITALS: BP 156/74; PULSE 81; RESP 18; TEMP 36.8; O2SAT 96
[2024-08-19 07:41] LABS: Glucose, Whole Blood 176 mg/dL (60-115)
[2024-08-19] MEDS: Insulin Lispro 100 UNIT/ML 3 ML VIAL SUBCUT ×3 (09:19→16:53)
[2024-08-19] MEDS: cefTRIAXone sodium 1 GM VIAL IVPUSH (09:19)
[2024-08-19] MEDS: Metoclopramide HCl 10 MG/2 ML VIAL 2.5 MG IVPUSH ×3 (09:22→21:24)
[2024-08-19] MEDS: 0.9 % Sodium Chloride Flush 3 ML SYRINGE IVFLUSH ×2 (09:31→15:14)
--- NOTE | 2024-08-19 09:34 | PC.NURSE ---
Left great toe redness and swelling present,Dr. Peguero notified
[2024-08-19 11:14] LABS: Glucose, Whole Blood 157 mg/dL (60-115)
--- NOTE | 2024-08-19 11:36 | P.PNIM_ITS ---
Subjective Subjective Date of Service: 08/19/24 Interval History: No acute issues overnight. NPO as per speech recommendation Review of Systems Unable to obtain Physical Exam 2 Vital Signs: Vital Signs: Last Vital Signs Temp 98.3 F 08/19/24 07:16 Pulse 81 08/19/24 07:16 Resp 18 08/19/24 07:16 BP 156/74 H 08/19/24 07:16 Pulse Ox 96 08/19/24 07:16 O2 Del Method Oxymask 08/19/24 07:16 O2 Flow Rate 3 08/19/24 07:16 BMI result Body Mass Index 40.7 Const: Other: Awake alert nonverbal Resp: Other: Diminished throughout with scattered expiratory wheezes and coarse rhonchi Cardio: Other: No S4; positive S1-S2; no S3 murmurs rubs or gallops GI: Other: Soft nontender nondistended normoactive bowel sounds Extrem: Other: No edema bilaterally Objective Data Active Medications Acetaminophen (Acetaminophen Supp 650 Mg Supp.Rect) 650 mg ND Q6H PRN PRN Reason: Pain, Mild 1-3,fever,headache Acetaminophen (Acetaminophen 325 Mg Tablet) 650 mg PO Q4H PRN PRN Reason: Fever Or Pain Atorvastatin Calcium (Atorvastatin Calcium 20 Mg Tablet) 20 mg PO DAILY@1700 [facility] Last Admin: 08/18/24 16:22 Dose: Not Given Documented By: MERYL Non-Admin Reason: NPO Ceftriaxone Sodium (Ceftriaxone Sodium 1 Gm Vial) 1 gm IVPUSH Q24H [facility] Last Admin: 08/19/24 09:19 Dose: 1 gm Documented By: LOUIS Enoxaparin Sodium (Enoxaparin Sodium 60 Mg/0.6 Ml Syringe) 60 mg SUBCUT Q12H [facility] Last Admin: 08/19/24 02:17 Dose: 60 mg Documented By: MICHAEL Finasteride (Finasteride 5 Mg Tablet) 5 mg PO DAILY [facility] Last Admin: 08/19/24 09:36 Dose: Not Given Documented By: LOUIS Non-Admin Reason: NPO Folic Acid (Folic Acid 1 Mg Tablet) 1 mg PO DAILY [facility] Last Admin: 08/19/24 09:37 Dose: Not Given Documented By: LOUIS Non-Admin Reason: NPO Furosemide (Furosemide 20 Mg Tablet) 20 mg PO DAILY [facility]; Protocol Last Admin: 08/19/24 09:38 Dose: Not Given Documented By: LOUIS Non-Admin Reason: NPO Glucose (Glucose Gel 15 Gm Gel..Gram.) 15 gm PO Q15M PRN; Protocol PRN Reason: per Hypoglycemia Standing Ord. Guaifenesin/Dextromethorphan (Guaifenesin Dm 100/10/5 Ml 5 Ml Syrup) 10 ml PO Q4H PRN PRN Reason: Cough Metronidazole (Flagyl) 500 mg in 100 mls @ 100 mls/hr IV Q8H [facility] Last Infusion: 08/19/24 10:34 Dose: Infused Documented By: LOUIS Dextrose (D10) 250 mls @ 750 mls/hr IV Q15M PRN; Protocol PRN Reason: per Hypoglycemia Standing Ord. Dextrose (D5w) 1,000 mls @ 100 mls/hr IVCONT .Q10H [facility] Last Admin: 08/19/24 02:17 Dose: 100 mls/hr Documented By: MICHAEL Insulin Human Lispro (Insulin Lispro 100 Unit/Ml 3 Ml Vial) 0 unit SUBCUT QIDACHS [facility]; Protocol Last Admin: 08/19/24 09:19 Dose: 2 unit Documented By: LOUIS Labetalol HCl (Labetalol Hcl 200 Mg Tablet) 200 mg PO BID@0900,1700 [facility]; Protocol Last Admin: 08/19/24 09:38 Dose: Not Given Documented By: LOUIS Non-Admin Reason: NPO Lisinopril (Lisinopril 5 Mg Tablet) 5 mg PO DAILY [facility]; Protocol Last Admin: 08/19/24 09:38 Dose: Not Given Documented By: LOUIS Non-Admin Reason: NPO Memantine (Memantine Hcl 10 Mg Tablet) 10 mg PO DAILY [facility] Last Admin: 08/19/24 09:39 Dose: Not Given Documented By: LOUIS Non-Admin Reason: NPO Metoclopramide HCl (Metoclopramide Hcl 10 Mg/2 Ml Vial) 2.5 mg IVPUSH TID [facility] Last Admin: 08/19/24 09:22 Dose: 2.5 mg Documented By: LOUIS Ondansetron HCl (Ondansetron Hcl 4 Mg/2 Ml Vial) 4 mg IVPUSH Q8H PRN PRN Reason: Nausea and Vomiting Sodium Chloride (0.9 % Sodium Chloride Flush 3 Ml Syringe) 3 ml IVFLUSH QSHIFT [facility] Last Admin: 08/19/24 09:31 Dose: 3 ml Documented By: LOUIS Tamsulosin HCl (Tamsulosin Hcl 0.4 Mg Capsule) 0.4 mg PO DAILY [facility] Last Admin: 08/19/24 09:37 Dose: Not Given Documented By: LOUIS Non-Admin Reason: NPO Labs 08/18/24 09:09 08/18/24 05:40 Labs: Laboratory Results - last 24 hr 08/16/24 08/18/24 08/18/24 07:18 11:59 16:13 POC Glucose 143 H 139 H B-Natriuretic Peptide 08/18/24 08/19/24 08/19/24 20:15 07:19 11:11 POC Glucose 158 H 176 H 157 H B-Natriuretic Peptide Microbiology Microbiology Results: Microbiology 08/16/24 07:19 Blood Culture - Preliminary Blood - Venous No growth after 48 hours. 08/16/24 07:18 Blood Culture - Preliminary Blood - Venous No growth after 48 hours. Assessment and Plan (1) Multifocal pneumonia: Status: Acute (2) Acute hypoxemic respiratory failure: Status: Acute Plan Pt is a 74-year-old male with a PMH significant for?CHF, DVT/PE on Eliquis, benign brain tumor s/p resection 2016, HTN, HLD, amz-oqgxssd-xnctpoczz type 2 diabetes, BPH, Alzheimer's dementia nonverbal and primarily bed-bound at baseline, transfers with Jimy lift who presents to the ED from [place]'s home for concerns of recent change in mental status, wheezing, and hypoxia to the 80s on room air. Pt will be admitted to the hospital treatment and further evaluation of acute hypoxic respiratory failure in the setting of multifocal aspiration pneumonia with sepsis. 1.Acute hypoxic respiratory failure and metabolic encephalopathy in the setting of bilateral aspiration pneumonia with sepsis(resolved) -ceftriaxone/ Zosyn, started (4) -titrate supplemental O2 >92, wean as tolerated 2. Dysphagia -speech recommends NPO -discussed with and Dr. Brown. . . We will consult Dr. Brown Wednesday for PEG tube placement 2.Stage I decubitus ulcer (present on admission) -area of erythema on bilateral buttocks -positioning q.2h, offload bony prominences 3..Hx of DVT/PE -enoxaparin 60 mg b.i.d. while NPO -resume Eliquis when no longer NPO 5.Yjn-wmcyjux-hlqhfrugo type 2 diabetes -acceptable control -hold oral agents while NPO -lispro correctional scale -adjust as indicated; add back oral therapies when appropriate 6.HTN -acceptable control on current therapy -adjust as indicated DNR/DNI Lovenox Patient requires ongoing hospitalization for IV antibiotics to treat aspiration pneumonia Quality Stroke Does the patient have a stroke diagnosis?: No VTE Prior VTE?: Yes VTE Risk Level:: Medical - moderate - high VTE Device Contraindication: Treatment Not Indicated VTE Drug Contraindication: N/A - Med Ordered
[2024-08-19 12:00] VITALS: BP 163/73; PULSE 86; RESP 18; TEMP 37.6; O2SAT 97
[2024-08-19 15:10] VITALS: BP 164/73; PULSE 75; RESP 20; TEMP 37.1; O2SAT 98
[2024-08-19 16:22] LABS: Glucose, Whole Blood 155 mg/dL (60-115)
[2024-08-19 19:55] VITALS: BP 167/70; PULSE 73; RESP 18; TEMP 36.9; O2SAT 96
[2024-08-19 20:44] LABS: Glucose, Whole Blood 143 mg/dL (60-115)
[2024-08-20] VITALS (8 sets, daily range): BP systolic 133–162; BP diastolic 56–74; PULSE 67–92; RESP 18–20; TEMP 36.2–37.3; O2SAT 93–98
[2024-08-20] MEDS: Enoxaparin Sodium 60 MG/0.6 ML SYRINGE SUBCUT ×2 (01:47→14:15)
[2024-08-20] MEDS: metroNIDAZOLE/NS 500 MG/100 ML PIGGYBACK 100 MG IV ×3 (01:49→17:23)
[2024-08-20 07:40] LABS: Glucose, Whole Blood 157 mg/dL (60-115)
[2024-08-20 07:56] LABS: MANUAL DIFF FLAG NO
[2024-08-20 08:03] LABS: Basophils Percent Auto 0.2 % (0-2); Eosinophils Absolute Auto 0.1 X10*3/uL (0.0-0.4); Hematocrit 24.4 % (42.0-52.0); Imm Gran Abs Auto 0.02 X10*3/uL (0.00-0.03); Imm Gran Pct Auto 0.3 % (0.0-0.4); Lymphocytes Absolute Auto 1.5 X10*3/uL (1.2-4.9); Lymphocytes Percent Auto 25.9 % (20-40); Mean Corpuscular HGB Conc 32.8 g/dl (31.0-36.0); Mean Corpuscular Volume 88.4 fL (80.0-98.0); Mean Platelet Volume 10.5 fL (9.4-12.4); Monocytes Absolute Auto 0.5 X10*3/uL (0.1-1.2); Monocytes Percent Auto 8.3 % (2-11); Neutrophils Absolute Auto 3.7 x10*3/uL (2.0-8.3); Neutrophils Percent Auto 63.3 % (45-73); Platelet Count 188 X10*3/uL (160-400); Red Blood Count 2.76 X10*6/uL (4.60-5.80); Red Cell Distribution Width 13.4 % (11.0-16.0); White Blood Count 5.9 X10*3/uL (4.8-10.8)
[2024-08-20] MEDS: Insulin Lispro 100 UNIT/ML 3 ML VIAL SUBCUT ×2 (08:25→16:39)
[2024-08-20] MEDS: cefTRIAXone sodium 1 GM VIAL IVPUSH (08:25)
[2024-08-20] MEDS: 0.9 % Sodium Chloride Flush 3 ML SYRINGE IVFLUSH ×3 (08:26→21:00)
[2024-08-20 08:32] LABS: Alanine Aminotransferase 7 U/L (0-40); Albumin Level 2.7 g/dL (3.5-5.0); Alkaline Phosphatase 60 U/L (39-117); Anion Gap 12 (12-20); Aspartate Amino Transferase 25 U/L (5-37); Bilirubin Total 0.2 mg/dL (0.0-1.0); Blood Urea Nitrogen 9 mg/dL (9-16); Calcium 8.2 mg/dL (8.4-10.2); Carbon Dioxide 21 mmol/L (22-29); Chloride 112 mmol/L (96-108); Creatinine Clr Calc Pharmacy 130.2; Estimated Glomerular Filt Rate > 60; Glucose Fasting 170 mg/dL (60-99); Potassium 3.5 mmol/L (3.3-5.1); Sodium 141 mmol/L (135-145); Total Protein 5.4 g/dL (6.5-8.0)
[2024-08-20] MEDS: Metoclopramide HCl 10 MG/2 ML VIAL 2.5 MG IVPUSH ×3 (09:20→20:59)
[2024-08-20] MEDS: Dextrose 5 % 1,000 ML 75 ML IVCONT (09:20)
[2024-08-20] MEDS: Furosemide 20 MG/2 ML VIAL IVPUSH (09:33)
[2024-08-20 11:17] LABS: Glucose, Whole Blood 141 mg/dL (60-115)
--- NOTE | 2024-08-20 11:58 | P.PNIM_ITS ---
Subjective Subjective Date of Service: 08/20/24 Interval History: No acute issues overnight. Awaiting PEG tube in a.m. Review of Systems Unable to obtain Physical Exam 2 Vital Signs: Vital Signs: Last Vital Signs Temp 98.0 F 08/20/24 11:23 Pulse 73 08/20/24 11:23 Resp 18 08/20/24 11:23 BP 136/62 08/20/24 11:23 Pulse Ox 95 08/20/24 11:23 O2 Del Method Oxymask 08/20/24 11:23 O2 Flow Rate 3 08/20/24 11:23 BMI result Body Mass Index 40.7 Const: Other: Awake alert nonverbal Resp: Other: Diminished throughout with scattered expiratory wheezes and coarse rhonchi Cardio: Other: No S4; positive S1-S2; no S3 murmurs rubs or gallops GI: Other: Soft nontender nondistended normoactive bowel sounds Extrem: Other: No edema bilaterally Objective Data Active Medications Acetaminophen (Acetaminophen Supp 650 Mg Supp.Rect) [address] Q6H PRN PRN Reason: Pain, Mild 1-3,fever,headache Acetaminophen (Acetaminophen 325 Mg Tablet) 650 mg PO Q4H PRN PRN Reason: Fever Or Pain Atorvastatin Calcium (Atorvastatin Calcium 20 Mg Tablet) 20 mg PO DAILY@1700 [facility] Last Admin: 08/19/24 15:05 Dose: Not Given Documented By: LOUIS Non-Admin Reason: NPO Ceftriaxone Sodium (Ceftriaxone Sodium 1 Gm Vial) 1 gm IVPUSH Q24H [facility] Last Admin: 08/20/24 08:25 Dose: 1 gm Documented By: LOUIS Enoxaparin Sodium (Enoxaparin Sodium 60 Mg/0.6 Ml Syringe) 60 mg SUBCUT Q12H [facility] Last Admin: 08/20/24 01:47 Dose: 60 mg Documented By: MICHAEL Finasteride (Finasteride 5 Mg Tablet) 5 mg PO DAILY [facility] Last Admin: 08/20/24 08:47 Dose: Not Given Documented By: LOUIS Non-Admin Reason: NPO Folic Acid (Folic Acid 1 Mg Tablet) 1 mg PO DAILY [facility] Last Admin: 08/20/24 09:06 Dose: Not Given Documented By: LOUIS Non-Admin Reason: NPO Furosemide (Furosemide 20 Mg/2 Ml Vial) 20 mg IVPUSH DAILY [facility]; Protocol Last Admin: 08/20/24 09:33 Dose: 20 mg Documented By: LOUIS Glucose (Glucose Gel 15 Gm Gel..Gram.) 15 gm PO Q15M PRN; Protocol PRN Reason: per Hypoglycemia Standing Ord. Guaifenesin/Dextromethorphan (Guaifenesin Dm 100/10/5 Ml 5 Ml Syrup) 10 ml PO Q4H PRN PRN Reason: Cough Metronidazole (Flagyl) 500 mg in 100 mls @ 100 mls/hr IV Q8H [facility] Last Infusion: 08/20/24 10:33 Dose: Infused Documented By: LOUIS Dextrose (D10) 250 mls @ 750 mls/hr IV Q15M PRN; Protocol PRN Reason: per Hypoglycemia Standing Ord. Dextrose (D5w) 1,000 mls @ 75 mls/hr IVCONT .[id number] [facility] Last Admin: 08/20/24 09:20 Dose: 75 mls/hr Documented By: LOUIS Insulin Human Lispro (Insulin Lispro 100 Unit/Ml 3 Ml Vial) 0 unit SUBCUT QIDACHS [facility]; Protocol Last Admin: 08/20/24 11:23 Dose: Not Given Documented By: LOUIS Non-Admin Reason: No Insulin Coverage Labetalol HCl (Labetalol Hcl 200 Mg Tablet) 200 mg PO BID@0900,1700 [facility]; Protocol Last Admin: 08/20/24 09:07 Dose: Not Given Documented By: LOUIS Non-Admin Reason: NPO Lisinopril (Lisinopril 5 Mg Tablet) 5 mg PO DAILY [facility]; Protocol Last Admin: 08/20/24 09:07 Dose: Not Given Documented By: LOUIS Non-Admin Reason: NPO Memantine (Memantine Hcl 10 Mg Tablet) 10 mg PO DAILY [facility] Last Admin: 08/20/24 09:07 Dose: Not Given Documented By: LOUIS Non-Admin Reason: NPO Metoclopramide HCl (Metoclopramide Hcl 10 Mg/2 Ml Vial) 2.5 mg IVPUSH TID [facility] Last Admin: 08/20/24 09:20 Dose: 2.5 mg Documented By: LOUIS Ondansetron HCl (Ondansetron Hcl 4 Mg/2 Ml Vial) 4 mg IVPUSH Q8H PRN PRN Reason: Nausea and Vomiting Sodium Chloride (0.9 % Sodium Chloride Flush 3 Ml Syringe) 3 ml IVFLUSH QSHIFT [facility] Last Admin: 08/20/24 08:26 Dose: 3 ml Documented By: LOUIS Tamsulosin HCl (Tamsulosin Hcl 0.4 Mg Capsule) 0.4 mg PO DAILY [facility] Last Admin: 08/20/24 09:08 Dose: Not Given Documented By: LOUIS Non-Admin Reason: NPO Labs 08/20/24 07:33 08/20/24 07:33 Labs: Laboratory Results - last 24 hr 08/19/24 08/19/24 08/20/24 16:07 20:39 07:33 MCV 88.4 MCH 29.0 MCHC 32.8 RDW 13.4 Plt Count 188 MPV 10.5 Immature Gran % (Auto) 0.3 Neut % (Auto) 63.3 Lymph % (Auto) 25.9 Motley % (Auto) 8.3 Eos % (Auto) 2.0 Baso % (Auto) 0.2 Lymph # (Auto) 1.5 [place]ley # (Auto) 0.5 Eos # (Auto) 0.1 Baso # (Auto) 0.0 Abs Immat Gran (auto) 0.02 Absolute Neuts (auto) 3.7 Absolute Nucleated RBC 0.000 Nucleated RBC % (auto) 0.0 Anion Gap 12 Estim Creat Clear Calc 130.2 Estimated GFR > 60 POC Glucose 155 H 143 H 157 H Fasting Glucose 170 H Calcium 8.2 L Total Bilirubin 0.2 AST 25 ALT 7 Alkaline Phosphatase 60 Total Protein 5.4 L Albumin 2.7 L 08/20/24 11:08 MCV MCH MCHC RDW Plt Count MPV Immature Gran % (Auto) Neut % (Auto) Lymph % (Auto) [place] % (Auto) Eos % (Auto) Baso % (Auto) Lymph # (Auto) [place] # (Auto) Eos # (Auto) Baso # (Auto) Abs Immat Gran (auto) Absolute Neuts (auto) Absolute Nucleated RBC Nucleated RBC % (auto) Anion Gap Estim Creat Clear Calc Estimated GFR POC Glucose 141 H Fasting Glucose Calcium Total Bilirubin AST ALT Alkaline Phosphatase Total Protein Albumin Assessment and Plan (1) Multifocal pneumonia: Status: Acute Plan Pt is a 74-year-old male with a PMH significant for?CHF, DVT/PE on Eliquis, benign brain tumor s/p resection 2017, HTN, HLD, rkl-ndzhuok-flcnrkuvk type 2 diabetes, BPH, Alzheimer's dementia nonverbal and primarily bed-bound at baseline, transfers with Jimy mcfarlane who presents to the ED from [place]'s home for concerns of recent change in mental status, wheezing, and hypoxia to the 80s on room air. Pt will be admitted to the hospital treatment and further evaluation of acute hypoxic respiratory failure in the setting of multifocal aspiration pneumonia with sepsis. 1.Acute hypoxic respiratory failure and metabolic encephalopathy in the setting of bilateral aspiration pneumonia with sepsis(resolved) -ceftriaxone/ Zosyn, started (5)titrate supplemental O2 >92, wean as tolerated 2. Dysphagia -speech recommends NPO -discussed with and Dr. Brown. . . We will consult Dr. Brown Wednesday for PEG tube placement 2.Stage I decubitus ulcer (present on admission) -area of erythema on bilateral buttocks -positioning q.2h, offload bony prominences 3..Hx of DVT/PE -enoxaparin 60 mg b.i.d. while NPO -resume Eliquis when no longer NPO 5.Kay-fcftpxr-wpjsjnjir type 2 diabetes -acceptable control -hold oral agents while NPO -lispro correctional scale -adjust as indicated; add back oral therapies when appropriate 6.HTN -acceptable control on current therapy -adjust as indicated DNR/DNI Lovenox Patient requires ongoing hospitalization for IV antibiotics to treat aspiration pneumonia Quality Stroke Does the patient have a stroke diagnosis?: No VTE Prior VTE?: Yes VTE Risk Level:: Medical - moderate - high VTE Device Contraindication: Treatment Not Indicated VTE Drug Contraindication: N/A - Med Ordered
--- NOTE | 2024-08-20 14:55 | PC.NURSE ---
Patient lungs sounds bilateral rhonhi,suctioned by repiratory tharapist,lungs sounds diminished after suctioning
[2024-08-20 16:24] LABS: Glucose, Whole Blood 152 mg/dL (60-115)
[2024-08-20 19:59] LABS: Glucose, Whole Blood 139 mg/dL (60-115)
[2024-08-21] MEDS: metroNIDAZOLE/NS 500 MG/100 ML PIGGYBACK 100 MG IV ×3 (01:04→17:14)
[2024-08-21] MEDS: Enoxaparin Sodium 60 MG/0.6 ML SYRINGE SUBCUT ×2 (01:04→12:06)
[2024-08-21] MEDS: Dextrose 5 % 1,000 ML 75 ML IVCONT ×2 (01:06→15:54)
[2024-08-21 03:23] VITALS: BP 130/58; PULSE 68; RESP 20; TEMP 36.2; O2SAT 94
[2024-08-21 06:38] LABS: MANUAL DIFF FLAG NO
[2024-08-21 06:58] LABS: Basophils Percent Auto 0.2 % (0-2); Eosinophils Absolute Auto 0.1 X10*3/uL (0.0-0.4); Eosinophils Percent Auto 1.7 % (0-4); Hematocrit 23.6 % (42.0-52.0); Hemoglobin 7.9 g/dl (14.0-18.0); Imm Gran Abs Auto 0.04 X10*3/uL (0.00-0.03); Imm Gran Pct Auto 0.6 % (0.0-0.4); Lymphocytes Absolute Auto 1.6 X10*3/uL (1.2-4.9); Mean Corpuscular HGB Conc 33.5 g/dl (31.0-36.0); Mean Corpuscular Hemoglobin 29.6 pg (27.0-33.0); Mean Corpuscular Volume 88.4 fL (80.0-98.0); Mean Platelet Volume 9.3 fL (9.4-12.4); Monocytes Absolute Auto 0.5 X10*3/uL (0.1-1.2); Monocytes Percent Auto 7.9 % (2-11); Neutrophils Absolute Auto 4.3 x10*3/uL (2.0-8.3); Neutrophils Percent Auto 65.6 % (45-73); Platelet Count 230 X10*3/uL (160-400); Red Blood Count 2.67 X10*6/uL (4.60-5.80); Red Cell Distribution Width 13.2 % (11.0-16.0); White Blood Count 6.6 X10*3/uL (4.8-10.8)
[2024-08-21 07:00] LABS: Alanine Aminotransferase 14 U/L (0-40); Albumin Level 2.6 g/dL (3.5-5.0); Alkaline Phosphatase 59 U/L (39-117); Anion Gap 9 (12-20); Aspartate Amino Transferase 26 U/L (5-37); Bilirubin Total 0.2 mg/dL (0.0-1.0); Blood Urea Nitrogen 7 mg/dL (9-16); Calcium 7.8 mg/dL (8.4-10.2); Carbon Dioxide 22 mmol/L (22-29); Chloride 109 mmol/L (96-108); Creatinine Clr Calc Pharmacy 138.8; Estimated Glomerular Filt Rate > 60; Glucose Fasting 158 mg/dL (60-99); Potassium 3.1 mmol/L (3.3-5.1); Sodium 137 mmol/L (135-145); Total Protein 5.3 g/dL (6.5-8.0)
[2024-08-21 07:46] VITALS: BP 134/63; PULSE 73; RESP 18; TEMP 37.2; O2SAT 95
[2024-08-21 07:57] LABS: Glucose, Whole Blood 167 mg/dL (60-115)
--- NOTE | 2024-08-21 08:41 | P.CONGS_ITS ---
[facility] Past Medical History Medical History (Updated 08/21/24 @ 10:27 by Karie Arndt PA-C) Bilateral pulmonary embolism DVT (deep venous thrombosis) Benign brain tumor Hypertension BPH (benign prostatic hyperplasia) Non-insulin dependent type 2 diabetes mellitus Alzheimer's dementia Social History Social History Household Members: Unknown / Unable to assess Housing: Unknown / Unable to assess Patient Tobacco Use Status: Never used Tobacco service: Yes Meds Allergies Allergy/AdvReac Type Severity Reaction Status Date / Time No Known Allergies Allergy Verified 08/16/24 06:59 Active Medications: Current Medications Acetaminophen (Acetaminophen Supp 650 Mg Supp.Rect) 650 mg [place] Q6H PRN PRN Reason: Pain, Mild 1-3,fever,headache Acetaminophen (Acetaminophen 325 Mg Tablet) 650 mg PO Q4H PRN PRN Reason: Fever Or Pain Atorvastatin Calcium (Atorvastatin Calcium 20 Mg Tablet) 20 mg PO DAILY@1700 [facility] Last Admin: 08/20/24 15:02 Dose: Not Given Ceftriaxone Sodium (Ceftriaxone Sodium 1 Gm Vial) 1 gm IVPUSH Q24H [facility] Last Admin: 08/20/24 08:25 Dose: 1 gm Enoxaparin Sodium (Enoxaparin Sodium 60 Mg/0.6 Ml Syringe) 60 mg SUBCUT Q12H [facility] Last Admin: 08/21/24 01:04 Dose: 60 mg Finasteride (Finasteride 5 Mg Tablet) 5 mg PO DAILY [facility] Last Admin: 08/21/24 07:52 Dose: Not Given Folic Acid (Folic Acid 1 Mg Tablet) 1 mg PO DAILY [facility] Last Admin: 08/21/24 07:53 Dose: Not Given Furosemide (Furosemide 20 Mg/2 Ml Vial) 20 mg IVPUSH DAILY [facility]; Protocol Last Admin: 08/20/24 09:33 Dose: 20 mg Glucose (Glucose Gel 15 Gm Gel..Gram.) 15 gm PO Q15M PRN; Protocol PRN Reason: per Hypoglycemia Standing Ord. Guaifenesin/Dextromethorphan (Guaifenesin Dm 100/10/5 Ml 5 Ml Syrup) 10 ml PO Q4H PRN PRN Reason: Cough Dextrose (D10) 250 mls @ 750 mls/hr IV Q15M PRN; Protocol PRN Reason: per Hypoglycemia Standing Ord. Dextrose (D5w) 1,000 mls @ 75 mls/hr IVCONT .[id number] [facility] Last Admin: 08/21/24 01:06 Dose: 75 mls/hr Metronidazole (Flagyl) 500 mg in 100 mls @ 100 mls/hr IV Q8H [facility] Potassium Chloride (Potassium Chloride/H20) 10 meq in 100 mls @ 100 mls/hr IV Q1H [facility] Stop: 08/21/24 12:29 Insulin Human Lispro (Insulin Lispro 100 Unit/Ml 3 Ml Vial) 0 unit SUBCUT QIDACHS [facility]; Protocol Last Admin: 08/21/24 08:02 Dose: Not Given Labetalol HCl (Labetalol Hcl 200 Mg Tablet) 200 mg PO BID@0900,1700 [facility]; Protocol Last Admin: 08/21/24 07:52 Dose: Not Given Lisinopril (Lisinopril 5 Mg Tablet) 5 mg PO DAILY [facility]; Protocol Last Admin: 08/21/24 07:53 Dose: Not Given Memantine (Memantine Hcl 10 Mg Tablet) 10 mg PO DAILY [facility] Last Admin: 08/21/24 07:53 Dose: Not Given Metoclopramide HCl (Metoclopramide Hcl 10 Mg/2 Ml Vial) 2.5 mg IVPUSH TID [facility] Last Admin: 08/20/24 20:59 Dose: 2.5 mg Ondansetron HCl (Ondansetron Hcl 4 Mg/2 Ml Vial) 4 mg IVPUSH Q8H PRN PRN Reason: Nausea and Vomiting Sodium Chloride (0.9 % Sodium Chloride Flush 3 Ml Syringe) 3 ml IVFLUSH QSHIFT [facility] Last Admin: 08/21/24 07:52 Dose: Not Given Tamsulosin HCl (Tamsulosin Hcl 0.4 Mg Capsule) 0.4 mg PO DAILY [facility] Last Admin: 08/21/24 07:53 Dose: Not Given Home Medications ?Medication ?Instructions ?Recorded ?Confirmed ?Last Taken ?Type acetaminophen 325 mg tablet 650 mg PO Q4H PRN Fever Or Pain 08/16/24 08/16/24 Unknown History apixaban 5 mg tablet 5 mg PO BID 08/16/24 08/16/24 08/16/24 History atorvastatin 20 mg tablet 20 mg PO DAILY@1700 08/16/24 08/16/24 08/15/24 History dextromethorphan-guaifenesin 10 10 ml PO Q4H PRN Cough 08/16/24 08/16/24 Unknown History mg-100 mg/5 mL oral liquid ([place] Diabetic) finasteride 5 mg tablet 5 mg PO DAILY 08/16/24 08/16/24 Unknown History folic acid 1 mg tablet 1 mg PO DAILY 08/16/24 08/16/24 Unknown History furosemide 20 mg tablet 20 mg PO DAILY 08/16/24 08/16/24 Unknown History glipizide 5 mg tablet 2.5 mg PO DAILY 08/16/24 08/16/24 Unknown History labetalol 200 mg tablet 200 mg PO BID@0900,1700 08/16/24 08/16/24 08/15/24 History lactulose 10 gram/15 mL oral 10 g PO BEDTIME PRN Diarrhea 08/16/24 08/16/24 Unknown History solution lisinopril 5 mg tablet 5 mg PO DAILY 08/16/24 08/16/24 Unknown History loperamide 2 mg tablet 2 mg PO Q3H PRN Diarrhea 08/16/24 08/16/24 Unknown History memantine 10 mg tablet 10 mg PO DAILY 08/16/24 08/16/24 Unknown History metformin 500 mg tablet 500 mg PO BIDWMEAL 08/16/24 08/16/24 08/15/24 History neomycin-bacitracn Zn-polymyxn 3.5 1 appl topical BID@0900,1700 08/16/24 08/16/24 08/15/24 History mg-400 unit-5,000 unit top oint pkt (Triple Antibiotic) ondansetron HCl 4 mg tablet 4 mg PO Q6H PRN Nausea And Vomiting 08/16/24 08/16/24 08/16/24 History tamsulosin 0.4 mg capsule 0.4 mg PO DAILY 08/16/24 08/16/24 Unknown History Physical Exam 2 Vital Signs: Vital Signs: Last Vital Signs Temp 98.9 F 08/21/24 07:46 Pulse 73 08/21/24 07:46 Resp 18 08/21/24 07:46 BP 134/63 08/21/24 07:46 Pulse Ox 95 08/21/24 07:46 O2 Del Method Oxymask 08/21/24 07:46 O2 Flow Rate 3.0 08/21/24 07:46 BMI result Body Mass Index 40.7 Results Labs 08/21/24 06:18 08/21/24 06:18 Labs: Abnormal lab results 08/20/24 08/20/24 08/20/24 Range/Units 11:08 16:12 19:22 RBC (4.60-5.80) X10*6/uL Hgb (14.0-18.0) g/dl Hct (42.0-52.0) % MPV (9.4-12.4) fL Immature Gran % (Auto) (0.0-0.4) % Abs Immat Gran (auto) (0.00-0.03) X10*3/uL Potassium (3.3-5.1) mmol/L Chloride (96-108) mmol/L Anion Gap (12-20) BUN (9-16) mg/dL POC Glucose 141 H 152 H 139 H (60-115) mg/dL Fasting Glucose (60-99) mg/dL Calcium (8.4-10.2) mg/dL Total Protein (6.5-8.0) g/dL Albumin (3.5-5.0) g/dL 08/21/24 08/21/24 Range/Units 06:18 07:52 RBC 2.67 L (4.60-5.80) X10*6/uL Hgb 7.9 L (14.0-18.0) g/dl Hct 23.6 L (42.0-52.0) % MPV 9.3 L (9.4-12.4) fL Immature Gran % (Auto) 0.6 H (0.0-0.4) % Abs Immat Gran (auto) 0.04 H (0.00-0.03) X10*3/uL Potassium 3.1 L (3.3-5.1) mmol/L Chloride 109 H (96-108) mmol/L Anion Gap 9 L (12-20) BUN 7 L (9-16) mg/dL POC Glucose 167 H (60-115) mg/dL Fasting Glucose 158 H (60-99) mg/dL Calcium 7.8 L (8.4-10.2) mg/dL Total Protein 5.3 L (6.5-8.0) g/dL Albumin 2.6 L (3.5-5.0) g/dL Short CBC 08/21/24 Range/Units 06:18 WBC 6.6 (4.8-10.8) X10*3/uL Hgb 7.9 L (14.0-18.0) g/dl Hct 23.6 L (42.0-52.0) % Plt Count 230 (160-400) X10*3/uL BMP 08/21/24 06:18 Sodium 137 Potassium 3.1 L Chloride 109 H Carbon Dioxide 22 BUN 7 L Creatinine 0.61 Calcium 7.8 L Liver Function 08/21/24 Range/Units 06:18 Total Bilirubin 0.2 (0.0-1.0) mg/dL AST 26 (5-37) U/L ALT 14 (0-40) U/L Alkaline Phosphatase 59 (39-117) U/L Albumin 2.6 L (3.5-5.0) g/dL Urine 08/16/24 Range/Units 08:36 Urine Color Yellow Urine Appearance Clear Urine pH 6.5 (5.0-9.0) Ur Specific [place] 1.020 (1.005-1.025) Urine Protein Negative (Neg-Trace) mg/dL Urine Glucose (UA) Negative (Negative) mg/dL All other labs normal. Assessment and Plan (1) Dysphagia: Status: Acute Procedures Date of Service Date of Service: 08/21/24
[2024-08-21 09:36] VITALS: BP 134/63
[2024-08-21] MEDS: Furosemide 20 MG/2 ML VIAL IVPUSH (09:36)
[2024-08-21] MEDS: cefTRIAXone sodium 1 GM VIAL IVPUSH (09:36)
[2024-08-21] MEDS: Metoclopramide HCl 10 MG/2 ML VIAL 2.5 MG IVPUSH ×3 (09:36→20:33)
--- NOTE | 2024-08-21 10:19 | PM.CNGS ---
History of Present Illness Consult details Consult date: 08/21/24 <Karie Arndt PA-C - Last Filed: 08/21/24 10:42> Requesting physician: John Peguero <Karie Arndt PA-C - Last Filed: 08/21/24 10:42> Narrative: Mr. Beyer is a 74-year-old male with PMH significant for CHF, DVT/PE on Eliquis, HTN, HLD, egd-yropsuk-gfrztdjiv type 2 diabetes, BPH, Alzheimer's dementia nonverbal and primarily bed-bound at baseline who presented to the ED from [place]'s home with recent change in mental status, wheezing, and hypoxia to the 80s on room air. He was admitted to the hospitalist service on 08/16 for further treatment of acute hypoxic respiratory failure secondary to multifocal aspiration pneumonia with sepsis. He is on ceftriaxone/ Zosyn. His sepsis has since resolved. He was evaluated by speech and was found to have severe oropharyngeal dysphagia and NPO status was recommended. Family would like to proceed with PEG tube placement for nutrition. CT abd/pelvis was reviewed. Eliquis has been held since admission and he is on lovenox 60mg BID subq. <Karie Anrdt PA-C - Last Filed: 08/21/24 10:42> Review of Systems Review of Systems: Yes Unobtainable due to mental condition <Karie Arndt PA-C - Last Filed: 08/21/24 10:42> [facility] Past Medical History Medical History: Medical History (Updated 08/21/24 @ 10:27 by Karie Arndt PA-C) Bilateral pulmonary embolism DVT (deep venous thrombosis) Benign brain tumor Hypertension BPH (benign prostatic hyperplasia) Non-insulin dependent type 2 diabetes mellitus Alzheimer's dementia <Karie Arndt PA-C - Last Filed: 08/21/24 10:42> Social History Social History: Social History Household Members: Unknown / Unable to assess Housing: Unknown / Unable to assess Patient Tobacco Use Status: Never used Tobacco service: Yes <Karie Arndt PA-C - Last Filed: 08/21/24 10:42> Meds Allergies/Adverse reactions: Allergies Allergy/AdvReac Type Severity Reaction Status Date / Time No Known Allergies Allergy Verified 08/16/24 06:59 <Karie Arndt PA-C - Last Filed: 08/21/24 10:42> Active Medications: Current Medications Acetaminophen (Acetaminophen Supp 650 Mg Supp.Rect) 650 mg NE Q6H PRN PRN Reason: Pain, Mild 1-3,fever,headache Acetaminophen (Acetaminophen 325 Mg Tablet) 650 mg PO Q4H PRN PRN Reason: Fever Or Pain Atorvastatin Calcium (Atorvastatin Calcium 20 Mg Tablet) 20 mg PO DAILY@1700 [facility] Last Admin: 08/20/24 15:02 Dose: Not Given Ceftriaxone Sodium (Ceftriaxone Sodium 1 Gm Vial) 1 gm IVPUSH Q24H [facility] Last Admin: 08/21/24 09:36 Dose: 1 gm Enoxaparin Sodium (Enoxaparin Sodium 60 Mg/0.6 Ml Syringe) 60 mg SUBCUT Q12H [facility] Last Admin: 08/21/24 01:04 Dose: 60 mg Finasteride (Finasteride 5 Mg Tablet) 5 mg PO DAILY [facility] Last Admin: 08/21/24 07:52 Dose: Not Given Folic Acid (Folic Acid 1 Mg Tablet) 1 mg PO DAILY [facility] Last Admin: 08/21/24 07:53 Dose: Not Given Furosemide (Furosemide 20 Mg/2 Ml Vial) 20 mg IVPUSH DAILY [facility]; Protocol Last Admin: 08/21/24 09:36 Dose: 20 mg Glucose (Glucose Gel 15 Gm Gel..Gram.) 15 gm PO Q15M PRN; Protocol PRN Reason: per Hypoglycemia Standing Ord. Guaifenesin/Dextromethorphan (Guaifenesin Dm 100/10/5 Ml 5 Ml Syrup) 10 ml PO Q4H PRN PRN Reason: Cough Dextrose (D10) 250 mls @ 750 mls/hr IV Q15M PRN; Protocol PRN Reason: per Hypoglycemia Standing Ord. Dextrose (D5w) 1,000 mls @ 75 mls/hr IVCONT .[id number] [facility] Last Admin: 08/21/24 01:06 Dose: 75 mls/hr Metronidazole (Flagyl) 500 mg in 100 mls @ 100 mls/hr IV Q8H [facility] Last Admin: 08/21/24 09:43 Dose: 100 mls/hr Potassium Chloride (Potassium Chloride/H20) 10 meq in 100 mls @ 100 mls/hr IV Q1H [facility] Stop: 08/21/24 12:29 Insulin Human Lispro (Insulin Lispro 100 Unit/Ml 3 Ml Vial) 0 unit SUBCUT QIDACHS [facility]; Protocol Last Admin: 08/21/24 08:02 Dose: Not Given Labetalol HCl (Labetalol Hcl 200 Mg Tablet) 200 mg PO BID@0900,1700 [facility]; Protocol Last Admin: 08/21/24 07:52 Dose: Not Given Lisinopril (Lisinopril 5 Mg Tablet) 5 mg PO DAILY [facility]; Protocol Last Admin: 08/21/24 07:53 Dose: Not Given Memantine (Memantine Hcl 10 Mg Tablet) 10 mg PO DAILY [facility] Last Admin: 08/21/24 07:53 Dose: Not Given Metoclopramide HCl (Metoclopramide Hcl 10 Mg/2 Ml Vial) 2.5 mg IVPUSH TID [facility] Last Admin: 08/21/24 09:36 Dose: 2.5 mg Ondansetron HCl (Ondansetron Hcl 4 Mg/2 Ml Vial) 4 mg IVPUSH Q8H PRN PRN Reason: Nausea and Vomiting Sodium Chloride (0.9 % Sodium Chloride Flush 3 Ml Syringe) 3 ml IVFLUSH QSHIFT [facility] Last Admin: 08/21/24 07:52 Dose: Not Given Tamsulosin HCl (Tamsulosin Hcl 0.4 Mg Capsule) 0.4 mg PO DAILY [facility] Last Admin: 08/21/24 07:53 Dose: Not Given <Karie Arndt PA-C - Last Filed: 08/21/24 10:42> Home medications: Home Medications ?Medication ?Instructions ?Recorded ?Confirmed ?Last Taken ?Type acetaminophen 325 mg tablet 650 mg PO Q4H PRN Fever Or Pain 08/16/24 08/16/24 Unknown History apixaban 5 mg tablet 5 mg PO BID 08/16/24 08/16/24 08/16/24 History atorvastatin 20 mg tablet 20 mg PO DAILY@1700 08/16/24 08/16/24 08/15/24 History dextromethorphan-guaifenesin 10 10 ml PO Q4H PRN Cough 08/16/24 08/16/24 Unknown History mg-100 mg/5 mL oral liquid ([place] Diabetic) finasteride 5 mg tablet 5 mg PO DAILY 08/16/24 08/16/24 Unknown History folic acid 1 mg tablet 1 mg PO DAILY 08/16/24 08/16/24 Unknown History furosemide 20 mg tablet 20 mg PO DAILY 08/16/24 08/16/24 Unknown History glipizide 5 mg tablet 2.5 mg PO DAILY 08/16/24 08/16/24 Unknown History labetalol 200 mg tablet 200 mg PO BID@0900,1700 08/16/24 08/16/24 08/15/24 History lactulose 10 gram/15 mL oral 10 g PO BEDTIME PRN Diarrhea 08/16/24 08/16/24 Unknown History solution lisinopril 5 mg tablet 5 mg PO DAILY 08/16/24 08/16/24 Unknown History loperamide 2 mg tablet 2 mg PO Q3H PRN Diarrhea 08/16/24 08/16/24 Unknown History memantine 10 mg tablet 10 mg PO DAILY 08/16/24 08/16/24 Unknown History metformin 500 mg tablet 500 mg PO BIDWMEAL 08/16/24 08/16/24 08/15/24 History neomycin-bacitracn Zn-polymyxn 3.5 1 appl topical BID@0900,1700 08/16/24 08/16/24 08/15/24 History mg-400 unit-5,000 unit top oint pkt (Triple Antibiotic) ondansetron HCl 4 mg tablet 4 mg PO Q6H PRN Nausea And Vomiting 08/16/24 08/16/24 08/16/24 History tamsulosin 0.4 mg capsule 0.4 mg PO DAILY 08/16/24 08/16/24 Unknown History <FRANCES Wells Last Filed: 08/21/24 10:42> Physical Exam Vital Signs: Vital Signs: Last Vital Signs Temp 98.9 F 08/21/24 07:46 Pulse 73 08/21/24 07:46 Resp 18 08/21/24 07:46 BP 134/63 08/21/24 09:36 Pulse Ox 95 08/21/24 07:46 O2 Del Method Oxymask 08/21/24 07:46 O2 Flow Rate 3.0 08/21/24 07:46 BMI result Body Mass Index 40.7 <Karie Arndt PA-C - Last Filed: 08/21/24 10:42> Const: General: comfortable, no acute distress and alert <FRANCES Wells Last Filed: 08/21/24 10:42> Nutritional Appearance: obese <Karie Arndt PA-C Drew Last Filed: 08/21/24 10:42> Resp: Effort & Inspection: normal respiratory effort, no respiratory distress, not tachypneic and no use of accessory muscles <Karie Arndt PA-C Drew Last Filed: 08/21/24 10:42> GI: Other: very corpulent abdomen small umbilical incision with soft, reducible umbilical hernia abd soft, nontender, nondistended <FRANCES Wells Last Filed: 08/21/24 10:42> Skin: General skin exam: no rashes or lesions noted <FRANCES Wells Last Filed: 08/21/24 10:42> Results Labs Result diagrams: 08/21/24 06:18 08/21/24 06:18 <Karie Arndt PA-C Drew Last Filed: 08/21/24 10:42> Labs: Abnormal lab results 08/20/24 08/20/24 08/20/24 Range/Units 11:08 16:12 19:22 RBC (4.60-5.80) X10*6/uL Hgb (14.0-18.0) g/dl Hct (42.0-52.0) % MPV (9.4-12.4) fL Immature Gran % (Auto) (0.0-0.4) % Abs Immat Gran (auto) (0.00-0.03) X10*3/uL Potassium (3.3-5.1) mmol/L Chloride (96-108) mmol/L Anion Gap (12-20) BUN (9-16) mg/dL POC Glucose 141 H 152 H 139 H (60-115) mg/dL Fasting Glucose (60-99) mg/dL Calcium (8.4-10.2) mg/dL Total Protein (6.5-8.0) g/dL Albumin (3.5-5.0) g/dL 08/21/24 08/21/24 Range/Units 06:18 07:52 RBC 2.67 L (4.60-5.80) X10*6/uL Hgb 7.9 L (14.0-18.0) g/dl Hct 23.6 L (42.0-52.0) % MPV 9.3 L (9.4-12.4) fL Immature Gran % (Auto) 0.6 H (0.0-0.4) % Abs Immat Gran (auto) 0.04 H (0.00-0.03) X10*3/uL Potassium 3.1 L (3.3-5.1) mmol/L Chloride 109 H (96-108) mmol/L Anion Gap 9 L (12-20) BUN 7 L (9-16) mg/dL POC Glucose 167 H (60-115) mg/dL Fasting Glucose 158 H (60-99) mg/dL Calcium 7.8 L (8.4-10.2) mg/dL Total Protein 5.3 L (6.5-8.0) g/dL Albumin 2.6 L (3.5-5.0) g/dL Short CBC 08/21/24 Range/Units 06:18 WBC 6.6 (4.8-10.8) X10*3/uL Hgb 7.9 L (14.0-18.0) g/dl Hct 23.6 L (42.0-52.0) % Plt Count 230 (160-400) X10*3/uL BMP 08/21/24 06:18 Sodium 137 Potassium 3.1 L Chloride 109 H Carbon Dioxide 22 BUN 7 L Creatinine 0.61 Calcium 7.8 L Liver Function 08/21/24 Range/Units 06:18 Total Bilirubin 0.2 (0.0-1.0) mg/dL AST 26 (5-37) U/L ALT 14 (0-40) U/L Alkaline Phosphatase 59 (39-117) U/L Albumin 2.6 L (3.5-5.0) g/dL Urine 08/16/24 Range/Units 08:36 Urine Color Yellow Urine Appearance Clear Urine pH 6.5 (5.0-9.0) Ur Specific [place] 1.020 (1.005-1.025) Urine Protein Negative (Neg-Trace) mg/dL Urine Glucose (UA) Negative (Negative) mg/dL All other labs normal. <Karie Arndt PA-C - Last Filed: 08/21/24 10:42> Imaging Abdomen CT scan report/results: report reviewed and image reviewed <Karie Arndt PA-C - Last Filed: 08/21/24 10:42> Assessment and Plan (1) Acute hypoxemic respiratory failure: Status: Acute <Karie Arndt PA-C - Last Filed: 08/21/24 10:42> (2) Multifocal pneumonia: Status: Acute <Karie Arndt PA-C - Last Filed: 08/21/24 10:42> (3) Dysphagia: Status: Acute <Karie Arndt PA-C - Last Filed: 08/21/24 10:42> The patient has been admitted for pneumonia With dysphagia, has failed swallow eval Referred for PEG tube placement I had put the patient on the add on schedule tomorrow However, his had decided not to proceed DNR DNI in effect Seen and examined independently Discussed with hospitalist service <Bello Brown MD - Last Filed: 08/21/24 16:35> 74 year old male admitted with acute hypoxic respiratory failure secondary to multifocal aspiration pneumonia with sepsis. He was found to have dysphagia during his speech evaluation. PEG tube had been requested. Likely hx of umbilical hernia repair but no other surgical scars noted, CT scan abd/pelvis has been reviewed. Stomach is distended with what appears to be a good subxyphoid window. He has been tenatively scheduled for PEG tube placement tomorrow. Hold lovenox dose tonight and tomorrow morning. <Karie Arndt PA-C - Last Filed: 08/21/24 10:42> Procedures Date of Service Date of Service: 08/21/24 <Karie Arndt PA-C - Last Filed: 08/21/24 10:42> 08/21/24 <Bello Brown MD - Last Filed: 08/21/24 16:35>
--- NOTE | 2024-08-21 10:45 | MHC.SLORD ---
Speech Language Pathology Order Status: Pt is NPO for PEG placement. MD consulted. [employer] to followup post surgery.
[2024-08-21] MEDS: Potassium Chloride/H20 10 MEQ/100 ML PIGGYBACK 100 MEQ IV ×4 (10:50→14:14)
--- NOTE | 2024-08-21 10:50 | PC.RT ---
RT nasaling suction through the left nare for large thick clear white secretion. Post pt 94% on RA. Nurse an MD aware.
[2024-08-21 11:51] LABS: Glucose, Whole Blood 164 mg/dL (60-115)
[2024-08-21 12:00] VITALS: BP 129/73; PULSE 76; RESP 18; TEMP 36.6; O2SAT 96
[2024-08-21] MEDS: Insulin Lispro 100 UNIT/ML 3 ML VIAL SUBCUT (12:06)
--- NOTE | 2024-08-21 14:20 | HO.PM.IMPN ---
Subjective Subjective Date of Service: 08/21/24 Interval History: Discussed with who has discussed with primary care physician. Wishes to cancel feeding tube at this time. No acute issues overnight Review of Systems Unable to obtain Physical Exam Vital Signs: Vital Signs: Last Vital Signs Temp 97.8 F 08/21/24 12:00 Pulse 76 08/21/24 12:00 Resp 18 08/21/24 12:00 BP 129/73 08/21/24 12:00 Pulse Ox 96 08/21/24 12:00 O2 Del Method Oxymask 08/21/24 12:00 O2 Flow Rate 2.0 08/21/24 12:00 BMI result Body Mass Index 40.7 Const: Other: Awake alert nonverbal Resp: Other: Diminished throughout with scattered expiratory wheezes and coarse rhonchi Cardio: Other: No S4; positive S1-S2; no S3 murmurs rubs or gallops GI: Other: Soft nontender nondistended normoactive bowel sounds Extrem: Other: No edema bilaterally Objective Data Active Medications Acetaminophen (Acetaminophen Supp 650 Mg Supp.Rect) 650 mg RI Q6H PRN PRN Reason: Pain, Mild 1-3,fever,headache Acetaminophen (Acetaminophen 325 Mg Tablet) 650 mg PO Q4H PRN PRN Reason: Fever Or Pain Atorvastatin Calcium (Atorvastatin Calcium 20 Mg Tablet) 20 mg PO DAILY@1700 [facility] Last Admin: 08/20/24 15:02 Dose: Not Given Documented By: LOUIS Non-Admin Reason: NPO Ceftriaxone Sodium (Ceftriaxone Sodium 1 Gm Vial) 1 gm IVPUSH Q24H [facility] Last Admin: 08/21/24 09:36 Dose: 1 gm Documented By: MERYL Enoxaparin Sodium (Enoxaparin Sodium 60 Mg/0.6 Ml Syringe) 60 mg SUBCUT Q12H [facility] Last Admin: 08/21/24 12:06 Dose: 60 mg Documented By: MERYL Finasteride (Finasteride 5 Mg Tablet) 5 mg PO DAILY [facility] Last Admin: 08/21/24 07:52 Dose: Not Given Documented By: MERYL Non-Admin Reason: NPO Folic Acid (Folic Acid 1 Mg Tablet) 1 mg PO DAILY [facility] Last Admin: 08/21/24 07:53 Dose: Not Given Documented By: MERYL Non-Admin Reason: NPO Furosemide (Furosemide 20 Mg/2 Ml Vial) 20 mg IVPUSH DAILY [facility]; Protocol Last Admin: 08/21/24 09:36 Dose: 20 mg Documented By: MERYL Glucose (Glucose Gel 15 Gm Gel..Gram.) 15 gm PO Q15M PRN; Protocol PRN Reason: per Hypoglycemia Standing Ord. Guaifenesin/Dextromethorphan (Guaifenesin Dm 100/10/5 Ml 5 Ml Syrup) 10 ml PO Q4H PRN PRN Reason: Cough Dextrose (D10) 250 mls @ 750 mls/hr IV Q15M PRN; Protocol PRN Reason: per Hypoglycemia Standing Ord. Dextrose (D5w) 1,000 mls @ 75 mls/hr IVCONT .[id number] [facility] Last Admin: 08/21/24 01:06 Dose: 75 mls/hr Documented By: NILA Metronidazole (Flagyl) 500 mg in 100 mls @ 100 mls/hr IV Q8H [facility] Last Infusion: 08/21/24 11:17 Dose: Infused Documented By: MERYL Insulin Human Lispro (Insulin Lispro 100 Unit/Ml 3 Ml Vial) 0 unit SUBCUT QIDACHS [facility]; Protocol Last Admin: 08/21/24 12:06 Dose: 2 unit Documented By: MERYL Labetalol HCl (Labetalol Hcl 200 Mg Tablet) 200 mg PO BID@0900,1700 [facility]; Protocol Last Admin: 08/21/24 07:52 Dose: Not Given Documented By: MERYL Non-Admin Reason: NPO Lisinopril (Lisinopril 5 Mg Tablet) 5 mg PO DAILY [facility]; Protocol Last Admin: 08/21/24 07:53 Dose: Not Given Documented By: MERYL Non-Admin Reason: NPO Memantine (Memantine Hcl 10 Mg Tablet) 10 mg PO DAILY [facility] Last Admin: 08/21/24 07:53 Dose: Not Given Documented By: MERYL Non-Admin Reason: NPO Metoclopramide HCl (Metoclopramide Hcl 10 Mg/2 Ml Vial) 2.5 mg IVPUSH TID [facility] Last Admin: 08/21/24 14:14 Dose: 2.5 mg Documented By: MERYL Ondansetron HCl (Ondansetron Hcl 4 Mg/2 Ml Vial) 4 mg IVPUSH Q8H PRN PRN Reason: Nausea and Vomiting Sodium Chloride (0.9 % Sodium Chloride Flush 3 Ml Syringe) 3 ml IVFLUSH QSHIFT [facility] Last Admin: 08/21/24 07:52 Dose: Not Given Documented By: MERYL Non-Admin Reason: IV Running Tamsulosin HCl (Tamsulosin Hcl 0.4 Mg Capsule) 0.4 mg PO DAILY [facility] Last Admin: 08/21/24 07:53 Dose: Not Given Documented By: MERYL Non-Admin Reason: NPO Labs 08/21/24 06:18 08/21/24 06:18 Labs: Laboratory Results - last 24 hr 08/20/24 08/20/24 08/21/24 16:12 19:22 06:18 MCV 88.4 MCH 29.6 MCHC 33.5 RDW 13.2 Plt Count 230 MPV 9.3 L Immature Gran % (Auto) 0.6 H Neut % (Auto) 65.6 Lymph % (Auto) 24.0 [place] % (Auto) 7.9 Eos % (Auto) 1.7 Baso % (Auto) 0.2 Lymph # (Auto) 1.6 [place] # (Auto) 0.5 Eos # (Auto) 0.1 Baso # (Auto) 0.0 Abs Immat Gran (auto) 0.04 H Absolute Neuts (auto) 4.3 Absolute Nucleated RBC 0.000 Nucleated RBC % (auto) 0.0 Anion Gap 9 L Estim Creat Clear Calc 138.8 Estimated GFR > 60 POC Glucose 152 H 139 H Fasting Glucose 158 H Calcium 7.8 L Total Bilirubin 0.2 AST 26 ALT 14 Alkaline Phosphatase 59 Total Protein 5.3 L Albumin 2.6 L 08/21/24 08/21/24 07:52 11:37 MCV MCH MCHC RDW Plt Count MPV Immature Gran % (Auto) Neut % (Auto) Lymph % (Auto) [place] % (Auto) Eos % (Auto) Baso % (Auto) Lymph # (Auto) [place] # (Auto) Eos # (Auto) Baso # (Auto) Abs Immat Gran (auto) Absolute Neuts (auto) Absolute Nucleated RBC Nucleated RBC % (auto) Anion Gap Estim Creat Clear Calc Estimated GFR POC Glucose 167 H 164 H Fasting Glucose Calcium Total Bilirubin AST ALT Alkaline Phosphatase Total Protein Albumin Microbiology Microbiology Results: Microbiology 08/16/24 07:19 Blood Culture - Final Blood - Venous No growth after 5 days. 08/16/24 07:18 Blood Culture - Final Blood - Venous No growth after 5 days. Assessment and Plan (1) Multifocal pneumonia: Status: Acute (2) Acute hypoxemic respiratory failure: Status: Acute Plan Pt is a 74-year-old male with a PMH significant for?CHF, DVT/PE on Eliquis, benign brain tumor s/p resection 2017, HTN, HLD, jij-gvhvrmf-zcrjuprhl type 2 diabetes, BPH, Alzheimer's dementia nonverbal and primarily bed-bound at baseline, transfers with Jimy mcfarlane who presents to the ED from [place]'s home for concerns of recent change in mental status, wheezing, and hypoxia to the 80s on room air. Pt will be admitted to the hospital treatment and further evaluation of acute hypoxic respiratory failure in the setting of multifocal aspiration pneumonia with sepsis. 1.Acute hypoxic respiratory failure and metabolic encephalopathy in the setting of bilateral aspiration pneumonia with sepsis(resolved) -ceftriaxone/ Zosyn, started (6) -now on room air. -we will complete 7 days of IV antibiotics before discharge 2. Dysphagia -speech recommends NPO - now declines feeding tube. 3.Stage I decubitus ulcer (present on admission) -area of erythema on bilateral buttocks -positioning q.2h, offload bony prominences 4..Hx of DVT/PE -enoxaparin 60 mg b.i.d. while NPO -resume Eliquis when no longer NPO 5.Tpa-olzvair-rwbotsgcd type 2 diabetes -acceptable control -hold oral agents while NPO -lispro correctional scale -adjust as indicated; add back oral therapies when appropriate 6.HTN -acceptable control on current therapy -adjust as indicated DNR/DNI Lovenox Patient requires ongoing hospitalization for IV antibiotics to treat aspiration pneumonia Quality Stroke Does the patient have a stroke diagnosis?: No VTE Prior VTE?: Yes VTE Risk Level:: Medical - moderate - high VTE Device Contraindication: Treatment Not Indicated VTE Drug Contraindication: N/A - Med Ordered
--- NOTE | 2024-08-21 15:25 | MHC.CM.PN ---
PT NOT YET MEDICALLY CLEARED, PER PN PT STILL REQUIRING IV ABX AND TREATMENT FOR ASPIRATION PNEUMONIA DCP REMAINS RETURN TO [facility] VIA BLS
[2024-08-21 15:26] VITALS: BP 155/66; PULSE 73; RESP 18; TEMP 37.1; O2SAT 95
[2024-08-21 16:33] LABS: Glucose, Whole Blood 120 mg/dL (60-115)
[2024-08-21 20:00] VITALS: BP 141/68; PULSE 76; RESP 18; TEMP 37.2; O2SAT 94
[2024-08-21 20:27] LABS: Glucose, Whole Blood 130 mg/dL (60-115)
[2024-08-22] VITALS (8 sets, daily range): BP systolic 122–147; BP diastolic 55–90; PULSE 71–82; RESP 16–20; TEMP 36.5–37.4; O2SAT 93–97
[2024-08-22] MEDS: Enoxaparin Sodium 60 MG/0.6 ML SYRINGE SUBCUT ×2 (01:10→12:41)
[2024-08-22] MEDS: metroNIDAZOLE/NS 500 MG/100 ML PIGGYBACK 100 MG IV ×3 (01:10→17:52)
[2024-08-22] MEDS: Dextrose 5 % 1,000 ML 75 ML IVCONT (05:07)
[2024-08-22 06:37] LABS: MANUAL DIFF FLAG NO
[2024-08-22 06:43] LABS: Basophils Percent Auto 0.1 % (0-2); Eosinophils Absolute Auto 0.1 X10*3/uL (0.0-0.4); Eosinophils Percent Auto 1.5 % (0-4); Hematocrit 22.9 % (42.0-52.0); Hemoglobin 7.7 g/dl (14.0-18.0); Imm Gran Abs Auto 0.05 X10*3/uL (0.00-0.03); Imm Gran Pct Auto 0.7 % (0.0-0.4); Lymphocytes Absolute Auto 1.7 X10*3/uL (1.2-4.9); Lymphocytes Percent Auto 24.3 % (20-40); Mean Corpuscular HGB Conc 33.6 g/dl (31.0-36.0); Mean Corpuscular Hemoglobin 29.2 pg (27.0-33.0); Mean Corpuscular Volume 86.7 fL (80.0-98.0); Mean Platelet Volume 9.6 fL (9.4-12.4); Monocytes Absolute Auto 0.6 X10*3/uL (0.1-1.2); Monocytes Percent Auto 8.1 % (2-11); Neutrophils Absolute Auto 4.4 x10*3/uL (2.0-8.3); Neutrophils Percent Auto 65.3 % (45-73); Platelet Count 247 X10*3/uL (160-400); Red Blood Count 2.64 X10*6/uL (4.60-5.80); Red Cell Distribution Width 13.3 % (11.0-16.0); White Blood Count 6.8 X10*3/uL (4.8-10.8)
[2024-08-22 06:57] LABS: Alanine Aminotransferase 10 U/L (0-40); Albumin Level 2.6 g/dL (3.5-5.0); Alkaline Phosphatase 59 U/L (39-117); Anion Gap 10 (12-20); Aspartate Amino Transferase 23 U/L (5-37); Bilirubin Total 0.2 mg/dL (0.0-1.0); Blood Urea Nitrogen 6 mg/dL (9-16); Calcium 7.9 mg/dL (8.4-10.2); Carbon Dioxide 21 mmol/L (22-29); Chloride 107 mmol/L (96-108); Creatinine Clr Calc Pharmacy 151.2; Estimated Glomerular Filt Rate > 60; Glucose Fasting 144 mg/dL (60-99); Potassium 3.2 mmol/L (3.3-5.1); Sodium 135 mmol/L (135-145); Total Protein 5.2 g/dL (6.5-8.0)
[2024-08-22 07:51] LABS: Glucose, Whole Blood 154 mg/dL (60-115)
[2024-08-22] MEDS: Insulin Lispro 100 UNIT/ML 3 ML VIAL SUBCUT (08:02)
[2024-08-22] MEDS: cefTRIAXone sodium 1 GM VIAL IVPUSH (08:02)
[2024-08-22] MEDS: Furosemide 20 MG/2 ML VIAL IVPUSH (08:02)
[2024-08-22] MEDS: Metoclopramide HCl 10 MG/2 ML VIAL 2.5 MG IVPUSH ×3 (08:02→19:58)
[2024-08-22] MEDS: Potassium Chloride/H20 10 MEQ/100 ML PIGGYBACK 100 MEQ IV ×4 (08:13→12:40)
[2024-08-22 11:31] LABS: Glucose, Whole Blood 140 mg/dL (60-115)
--- NOTE | 2024-08-22 12:46 | MHC.SPEECHCO ---
PEG tube cancelled per 's wishes. Per RN, Goals of Care are pending. [employer] monitoring.
--- NOTE | 2024-08-22 12:51 | P.DS_ITS ---
DS: Providers Provider Date of Service: 08/22/24 Date of admission: 08/16/24 12:10 Date of discharge: 08/22/24 Primary care physician: Fernando Thomas MD Consults: 08/17/24 00:54 Consult to Wound Care Routine Reason for consultation: redness to coccyx 08/19/24 09:35 Consult to Wound Care Routine Reason for consultation: left great toe redness and swelling Has provider been notified: Yes 08/21/24 08:19 Consult to General Surgery Routine Consulting Provider: Bello Brown Reason for consultation: PEG Has provider been notified: Yes DS: Diagnosis Discharge Diagnosis (1) Acute hypoxemic respiratory failure: Status: Acute (2) Multifocal pneumonia: Status: Acute (3) Dysphagia: Status: Acute DS: Summary Hospital Course Hospital Course: 74-year-old male with a PMH significant for?CHF, DVT/PE on Eliquis, benign brain tumor s/p resection 2017, HTN, HLD, sys-dakbiln-qggyfayif type 2 diabetes, BPH, Alzheimer's dementia nonverbal and primarily bed-bound at baseline, transfers with Pigafe lift who presents to the ED from [place] for concerns of recent change in mental status, wheezing, and hypoxia to the 80s on room air. Staff report patient has been had at least 3 episodes of vomiting with brown- yellowish emesis with coughing. Patient is a known aspiration risk. Patient seen and evaluated at bedside where he was somnolent but arousable to sternal rub, though falls immediately back to sleep. Nonverbal and non participatory in interview and examination. In the ED pt was febrile up to 100.6, tachycardic up to 113, tachypneic up to 34, and desatting into the 80s on RA, improved to 95% on 5L OxyMask. Labs were significant for leukocytosis 12.0, VB pH 7.46, and bicarb 21, otherwise grossly unremarkable and around baseline for patient. Stable H&H. No significant electrolyte abnormalities. Lactic acid WNL at 1.7. Kidney and hepatic function WNL. UA negative for UTI. Tested negative for COVID, RSV, flu. CT?of chest shows extensive consolidation in both lower lobes and in right upper lobe, suspicious for multifocal pneumonia. CT of gaseous distention of the stomach possibly related to aerophagia or gastroparesis. EKG demonstrated Pt was treated with acetaminophen, IVF, ceftriaxone, and metronidazole. Pt will be admitted to the hospital treatment and further evaluation of acute hypoxic respiratory failure in the setting of multifocal aspiration pneumonia with sepsis. Hospital course Patient was admitted to general medical floor and treated with 7 days of ceftriaxone and metronidazole to cover aspiration pneumonia. Patient required deep suctioning but was able to be maintained on low-flow oxygen. Patient did continued to decline from a mental status point and originally the entered and a PEG tube. Further discussion with [facility] attend[facility] and the declined the PEG tube and opted for comfort care. At this point he has completed his 7 days IV and will be returned to the [facility] and comfort care. Discussion with about same and she understands and agrees. Time Attestation Discharge Coordination Time (in mins): 35 Quality: Safe Use of Opioids Does Pt have an Active Cancer Diagnosis on the Problem List?: No Quality: Stroke Does the patient have a stroke diagnosis?: No Physical Exam Vital Signs: Vital Signs: Last Vital Signs Temp 97.7 F 08/22/24 11:09 Pulse 80 08/22/24 11:09 Resp 18 08/22/24 11:09 BP 145/90 H 08/22/24 11:09 Pulse Ox 95 08/22/24 11:09 O2 Del Method Oxymask 08/22/24 11:09 O2 Flow Rate 2.0 08/22/24 11:09 BMI result Body Mass Index 40.7 Const: Other: Opens eyes to verbal stimulation Resp: Other: Diminished throughout with scattered expiratory wheezes and coarse rhonchi Cardio: Other: No S4; positive S1-S2; no S3 murmurs rubs or gallops GI: Other: Soft nontender nondistended normoactive bowel sounds Extrem: Other: No edema bilaterally DS: Data Data Completed and Pending Labs on day of discharge: Laboratory Results - last 24 hr 08/21/24 08/21/24 08/22/24 16:29 20:12 05:19 WBC 6.8 RBC 2.64 L Hgb 7.7 L Hct 22.9 L MCV 86.7 MCH 29.2 MCHC 33.6 RDW 13.3 Plt Count 247 MPV 9.6 Immature Gran % (Auto) 0.7 H Neut % (Auto) 65.3 Lymph % (Auto) 24.3 [place] % (Auto) 8.1 Eos % (Auto) 1.5 Baso % (Auto) 0.1 Lymph # (Auto) 1.7 [place] # (Auto) 0.6 Eos # (Auto) 0.1 Baso # (Auto) 0.0 Abs Immat Gran (auto) 0.05 H Absolute Neuts (auto) 4.4 Absolute Nucleated RBC 0.000 Nucleated RBC % (auto) 0.0 Sodium 135 Potassium 3.2 L Chloride 107 Carbon Dioxide 21 L Anion Gap 10 L BUN 6 L Creatinine 0.56 Estim Creat Clear Calc 151.2 Estimated GFR > 60 POC Glucose 120 H 130 H Fasting Glucose 144 H Calcium 7.9 L Total Bilirubin 0.2 AST 23 ALT 10 Alkaline Phosphatase 59 Total Protein 5.2 L Albumin 2.6 L 08/22/24 08/22/24 07:33 11:14 WBC RBC Hgb Hct MCV MCH MCHC RDW Plt Count MPV Immature Gran % (Auto) Neut % (Auto) Lymph % (Auto) [place] % (Auto) Eos % (Auto) Baso % (Auto) Lymph # (Auto) [place] # (Auto) Eos # (Auto) Baso # (Auto) Abs Immat Gran (auto) Absolute Neuts (auto) Absolute Nucleated RBC Nucleated RBC % (auto) Sodium Potassium Chloride Carbon Dioxide Anion Gap BUN Creatinine Estim Creat Clear Calc Estimated GFR POC Glucose 154 H 140 H Fasting Glucose Calcium Total Bilirubin AST ALT Alkaline Phosphatase Total Protein Albumin Discharge Plan Discharge Anticipated Discharge Date/Time: 08/21/24 11:09 Patient Disposition: Xfer LT Discharge Diagnosis: Multifocal pneumonia Referrals: [facility] [Other] - 1 Week Physician,Tabitha J [Physician] - 1 Week Discharge Medications: No Action metformin 500 mg Tablet 500 mg PO BIDWMEAL acetaminophen 325 mg Tablet 650 mg PO Q4H PRN (Reason: Fever Or Pain) atorvastatin 20 mg Tablet 20 mg PO DAILY@1700 labetalol 200 mg Tablet 200 mg PO BID@0900,1700 dextromethorphan-guaifenesin [Tusnel Diabetic] 10-100 mg/5 mL Liquid 10 ml PO Q4H PRN (Reason: Cough) ondansetron HCl 4 mg Tablet 4 mg PO Q6H PRN (Reason: Nausea And Vomiting) loperamide 2 mg Tablet 2 mg PO Q3H PRN (Reason: Diarrhea) Rx Instructions: administer after each loose stool until symptoms controlled; do not exceed 8 mg per 24 hrs tamsulosin 0.4 mg Capsule 0.4 mg PO DAILY folic acid 1 mg Tablet 1 mg PO DAILY lisinopril 5 mg Tablet 5 mg PO DAILY furosemide 20 mg Tablet 20 mg PO DAILY finasteride 5 mg Tablet 5 mg PO DAILY glipizide 5 mg Tablet 2.5 mg PO DAILY memantine 10 mg Tablet 10 mg PO DAILY lactulose 10 gram/15 mL Solution 10 g PO BEDTIME PRN (Reason: Diarrhea) Triple Antibiotic 3.5-400-5,000 [id number] Ointment In Packet 1 appl TOPICAL BID@0900,1700 Rx Instructions: Apply to left first toe apixaban 5 mg Tablet 5 mg PO BID Discharge Orders: Discharge Order (Routine); Ordered 08/22/24 Ordered By: John Peguero Diet: NPO Activity on Discharge: Bedrest Stand Alone Forms: Patient Portal Discharge page Print Language: Senegalese Care Plan Goals: Comfort care Health Concerns: As per receiving facility Plan of Treatment: As per receiving facility he is Assessment: See discharge summary
--- NOTE | 2024-08-22 16:25 | MHC.CM.PN ---
Patient will discharge back to the [facility] on 08/24/23.
[2024-08-22 16:30] LABS: Glucose, Whole Blood 142 mg/dL (60-115)
[2024-08-22 20:58] LABS: Glucose, Whole Blood 134 mg/dL (60-115)
[2024-08-22] MEDS: 0.9 % Sodium Chloride Flush 3 ML SYRINGE IVFLUSH (22:45)
[2024-08-23] MEDS: Enoxaparin Sodium 60 MG/0.6 ML SYRINGE SUBCUT ×2 (01:29→12:30)
[2024-08-23] MEDS: metroNIDAZOLE/NS 500 MG/100 ML PIGGYBACK 100 MG IV ×2 (01:30→10:30)
[2024-08-23 04:00] VITALS: BP 135/61; PULSE 87; RESP 16; TEMP 36.8; O2SAT 95
--- NOTE | 2024-08-23 06:42 | PC.NURSE ---
pt bladder scanned for 330ml, Dr. Mckeon made aware, per Dr. Mckeon straight cath when >400ml.
[2024-08-23 07:32] LABS: Glucose, Whole Blood 137 mg/dL (60-115)
[2024-08-23 07:55] VITALS: BP 142/102; PULSE 79; RESP 19; TEMP 37.2; O2SAT 94
[2024-08-23] MEDS: cefTRIAXone sodium 1 GM VIAL IVPUSH (08:03)
[2024-08-23] MEDS: 0.9 % Sodium Chloride Flush 3 ML SYRINGE IVFLUSH ×2 (08:03→15:13)
[2024-08-23] MEDS: Metoclopramide HCl 10 MG/2 ML VIAL 2.5 MG IVPUSH (08:08)
[2024-08-23] MEDS: Furosemide 20 MG/2 ML VIAL IVPUSH (08:08)
[2024-08-23 11:23] LABS: Glucose, Whole Blood 126 mg/dL (60-115)
[2024-08-23 11:40] VITALS: BP 141/66; PULSE 78; RESP 19; TEMP 36.6; O2SAT 94
--- NOTE | 2024-08-23 13:16 | MHC.SL.SWA ---
Speech Pathologist Impression: Significant dysphagia in presence of minimal responsiveness Risk of Aspiration Due to: Lethargy History of Pneumonia Reduced Cognition Dysphasia Diet Status: Liquid Consistency and Strategies for Safe Swallow: Liquid Intake Recommendation: NPO Liquid Intake Strategies: Liquids by Teaspoon Only Solid Food Consistency: Dietary Recommendations: NPO Additional Modifications to Solid Foods: Oral Medication Intake: NPO Please contact the pharmacy regarding appropriate crushable or liquid drug formulations that are available whenever modified delivery is recommended. Compensatory Strategies and Precautions to be Taken for Safe Swallow: Sitting Upright (90 deg) No Straw Liquids from Spoon Small Bites and Sips Alternate Liquids/Solids Rate of Ingestion Change Oral Check Supervision While Eating and Drinking for Safe Swallow: PO with MANAGER CREDIT Foods to Avoid: Swallowing Recommended Treatments: Compens. Strategy Educat. Recommendation for Speech: Inpatient Speech Therapy Comment: Patient w/ severe oropharyngeal dysphagia, initially evaluated 08/17. Gtube was cancelled per pt request. D/c with GRIEVANCE COORDINATOR planned. Patient was re-evaluated by MANAGER CREDIT 08/23, unable to follow cues, absence of sequential oral/pharyngeal phase coordination, minimal strength of reflexive swallow. Recc NPO, prognosis poor for safe resumption of PO. MANAGER CREDIT available to consult with Team, will continue to follow pt during hospital stay, ? need for hospice MANAGER CREDIT. Frequency/Duration: M-F while inpatient. Date Range for Service Req: Timeline to reassess: Psychology Physician Clinican/Clinical Fellow: No Supervisory Statement: I have reviewed and agree with the student/clinical fellow's documentation: N/A Speech Language Pathologist: Tessie Humphries M.S., CCC-MANAGER CREDIT
--- NOTE | 2024-08-23 14:02 | HO.PM.IMPN ---
Subjective Subjective Date of Service: 08/23/24 Interval History: Being followed for aspiration pneumonia/end-stage dementia/bed-bound Patient re-evaluated by speech and they continue to recommend NPO declined G-tube placement Spoke with patient's Sandra Beyer and discussed code status she agreed with PITCH FLAKER Patient nonverbal Review of Systems Unable to obtain ROS Physical Exam Vital Signs: Vital Signs: Last Vital Signs Temp 98 F 08/23/24 11:40 Pulse 78 08/23/24 11:40 Resp 19 08/23/24 11:40 BP 141/66 H 08/23/24 11:40 Pulse Ox 94 08/23/24 11:40 O2 Del Method Oxymask 08/23/24 11:40 O2 Flow Rate 2 08/23/24 11:40 BMI result Body Mass Index 40.7 Const: Other: General: Nonverbal, no acute distress Resp: diffuse rhonchi bilaterally. CVS: S1, S2, RRR GI: +BS, soft, no guarding, no rigidity Skin: Warm, dry. Extremities: Nonpitting edema Objective Data Active Medications Acetaminophen (Acetaminophen Supp 650 Mg Supp.Rect) 650 mg [place] Q6H PRN PRN Reason: Pain, Mild 1-3,fever,headache Acetaminophen (Acetaminophen 325 Mg Tablet) 650 mg PO Q4H PRN PRN Reason: Fever Or Pain Atorvastatin Calcium (Atorvastatin Calcium 20 Mg Tablet) 20 mg PO DAILY@1700 [facility] Last Admin: 08/22/24 16:28 Dose: Not Given Documented By: MERYL Non-Admin Reason: NPO Ceftriaxone Sodium (Ceftriaxone Sodium 1 Gm Vial) 1 gm IVPUSH Q24H [facility] Last Admin: 08/23/24 08:03 Dose: 1 gm Documented By: PAMELA Enoxaparin Sodium (Enoxaparin Sodium 60 Mg/0.6 Ml Syringe) 60 mg SUBCUT Q12H [facility] Last Admin: 08/23/24 12:30 Dose: 60 mg Documented By: PAMELA Finasteride (Finasteride 5 Mg Tablet) 5 mg PO DAILY [facility] Last Admin: 08/23/24 08:04 Dose: Not Given Documented By: PAMELA Non-Admin Reason: NPO Folic Acid (Folic Acid 1 Mg Tablet) 1 mg PO DAILY [facility] Last Admin: 08/23/24 08:04 Dose: Not Given Documented By: HO.JERUSIA Non-Admin Reason: NPO Furosemide (Furosemide 20 Mg/2 Ml Vial) 20 mg IVPUSH DAILY [facility]; Protocol Last Admin: 08/23/24 08:08 Dose: 20 mg Documented By: PAMELA Glucose (Glucose Gel 15 Gm Gel..Gram.) 15 gm PO Q15M PRN; Protocol PRN Reason: per Hypoglycemia Standing Ord. Guaifenesin/Dextromethorphan (Guaifenesin Dm 100/10/5 Ml 5 Ml Syrup) 10 ml PO Q4H PRN PRN Reason: Cough Dextrose (D10) 250 mls @ 750 mls/hr IV Q15M PRN; Protocol PRN Reason: per Hypoglycemia Standing Ord. Metronidazole (Flagyl) 500 mg in 100 mls @ 100 mls/hr IV Q8H [facility] Last Infusion: 08/23/24 11:44 Dose: Infused Documented By: PAMELA Insulin Human Lispro (Insulin Lispro 100 Unit/Ml 3 Ml Vial) 0 unit SUBCUT QIDACHS [facility]; Protocol Last Admin: 08/23/24 12:09 Dose: Not Given Documented By: PAMELA Non-Admin Reason: No Insulin Coverage Labetalol HCl (Labetalol Hcl 200 Mg Tablet) 200 mg PO BID@0900,1700 [facility]; Protocol Last Admin: 08/23/24 08:05 Dose: Not Given Documented By: PAMELA Non-Admin Reason: NPO Lisinopril (Lisinopril 5 Mg Tablet) 5 mg PO DAILY [facility]; Protocol Last Admin: 08/23/24 08:05 Dose: Not Given Documented By: PAMELA Non-Admin Reason: NPO Memantine (Memantine Hcl 10 Mg Tablet) 10 mg PO DAILY [facility] Last Admin: 08/23/24 08:06 Dose: Not Given Documented By: PAMELA Non-Admin Reason: NPO Metoclopramide HCl (Metoclopramide Hcl 10 Mg/2 Ml Vial) 2.5 mg IVPUSH TID [facility] Last Admin: 08/23/24 08:08 Dose: 2.5 mg Documented By: PAMELA Ondansetron HCl (Ondansetron Hcl 4 Mg/2 Ml Vial) 4 mg IVPUSH Q8H PRN PRN Reason: Nausea and Vomiting Sodium Chloride (0.9 % Sodium Chloride Flush 3 Ml Syringe) 3 ml IVFLUSH QSHIFT [facility] Last Admin: 08/23/24 08:03 Dose: 3 ml Documented By: PAMELA Tamsulosin HCl (Tamsulosin Hcl 0.4 Mg Capsule) 0.4 mg PO DAILY [facility] Last Admin: 08/23/24 08:06 Dose: Not Given Documented By: PAMELA Non-Admin Reason: NPO Labs 08/22/24 05:19 08/22/24 05:19 Labs: Laboratory Results - last 24 hr 08/22/24 08/22/24 08/23/24 16:26 20:53 07:27 POC Glucose 142 H 134 H 137 H 08/23/24 11:20 POC Glucose 126 H Assessment and Plan (1) Dysphagia: Status: Acute (2) Multifocal pneumonia: Status: Acute (3) Acute hypoxemic respiratory failure: Status: Acute Plan 74-year-old male with a PMH significant for?CHF, DVT/PE on Eliquis, benign brain tumor s/p resection 2016, HTN, HLD, ktw-agahewi-jhbpnsgnh type 2 diabetes, BPH, Alzheimer's dementia nonverbal and primarily bed-bound at baseline, transfers with Jimy lift who presents to the ED from [facility] for concerns of recent change in mental status, wheezing, and hypoxia to the 80s on room air. Pt will be admitted to the hospital treatment and further evaluation of acute hypoxic respiratory failure in the setting of multifocal aspiration pneumonia with sepsis. 1.Acute hypoxic respiratory failure and metabolic encephalopathy in the setting of bilateral aspiration pneumonia with sepsis(resolved) -finish 7 day course of antibiotics 2. Dysphagia -speech recommends NPO - declined PEG tube 3.Stage I decubitus ulcer (present on admission) -area of erythema on bilateral buttocks, positioning q.2h, offload bony prominences 4..Hx of DVT/PE -on enoxaparin 60 mg b.i.d. will DC all medications PITCH FLAKER as per discussion with 5.His-arjqjgy-wayvzajey type 2 diabetes NPO will hold all medications 6.HTN Discontinue DNR/DNI spoke with healthcare proxy due to multiple comorbidities with advanced dementia, nonverbal status, bed-bound she declined G-tube placement ,and wishes patient to be comfort care , conversation verified by Dr. Mlapah. Will change code status to comfort care and will discontinue all home medications will place patient on scopolamine patch and morphine sulfate for shortness of breath. Patient requires ongoing hospitalization for safe [facility] Quality Stroke Does the patient have a stroke diagnosis?: No VTE Prior VTE?: Yes VTE Risk Level:: Medical - moderate - high VTE Device Contraindication: Treatment Not Indicated VTE Drug Contraindication: N/A - Med Ordered
[2024-08-23] MEDS: Scopolamine 1.5 MG PATCH.TD.3 EAR-BEHIND (15:07)
[2024-08-23] MEDS: Morphine Sulfate 2 MG/ML CARTRIDGE IVPUSH ×2 (16:24→21:27)
[2024-08-23 19:30] VITALS: BP 127/60; PULSE 70; RESP 20; TEMP 36.9; O2SAT 97
[2024-08-24] VITALS: RESP 20
[2024-08-24 03:48] VITALS: RESP 20
[2024-08-24] MEDS: Morphine Sulfate 2 MG/ML CARTRIDGE IVPUSH (04:11)
[2024-08-24 07:42] VITALS: RESP 17
--- NOTE | 2024-08-24 10:22 | MHC.CM.PN ---
Per MD patient medically cleared [facility]. CM spoke w/ [facility] nurse, Shaun, to update on plan. BLS transport booked for 12pm. Son, MD and RN aware. CM LM for /HCP w/ IMM and notification of dc.
--- NOTE | 2024-08-24 10:37 | PM.DS ---
DS: Providers Provider Date of Service: 08/24/24 Date of admission: 08/16/24 12:10 Primary care physician: Fernando Thomas MD Consults: 08/17/24 00:54 Consult to Wound Care Routine Reason for consultation: redness to coccyx 08/19/24 09:35 Consult to Wound Care Routine Reason for consultation: left great toe redness and swelling Has provider been notified: Yes 08/21/24 08:19 Consult to General Surgery Routine Consulting Provider: Bello Brown Reason for consultation: PEG Has provider been notified: Yes 08/23/24 02:05 Consult to Wound Care Routine Reason for consultation: redness to coccyx DS: Diagnosis Discharge Diagnosis (1) Dysphagia: Status: Acute (2) Multifocal pneumonia: Status: Acute (3) Acute hypoxemic respiratory failure: Status: Acute DS: Summary Hospital Course Hospital Course: 74-year-old male with a PMH significant for?CHF, DVT/PE on Eliquis, benign brain tumor s/p resection 2017, HTN, HLD, tpv-cftxdft-mejdwfayj type 2 diabetes, BPH, Alzheimer's dementia nonverbal and primarily bed-bound at baseline, transfers with Jimy lift who presents to the ED from [facility] for concerns of recent change in mental status, wheezing, and hypoxia to the 80s on room air. Staff report patient has been had at least 3 episodes of vomiting with brown-yellowish emesis with coughing. Patient is a known aspiration risk. Patient seen and evaluated at bedside where he was somnolent but arousable to sternal rub, though falls immediately back to sleep. Nonverbal and non participatory in interview and examination. In the ED pt was febrile up to 100.6, tachycardic up to 113, tachypneic up to 34, and desatting into the 80s on RA, improved to 95% on 5L OxyMask. Labs were significant for leukocytosis 12.0, VB pH 7.46, and bicarb 21, otherwise grossly unremarkable and around baseline for patient. Stable H&H. No significant electrolyte abnormalities. Lactic acid WNL at 1.7. Kidney and hepatic function WNL. UA negative for UTI. Tested negative for COVID, RSV, flu. CT?of chest shows extensive consolidation in both lower lobes and in right upper lobe, suspicious for multifocal pneumonia. CT of gaseous distention of the stomach possibly related to aerophagia or gastroparesis. EKG demonstrated Pt was treated with acetaminophen, IVF, ceftriaxone, and metronidazole. Pt will be admitted to the hospital treatment and further evaluation of acute hypoxic respiratory failure in the setting of multifocal aspiration pneumonia with sepsis. Hospital course Patient was admitted to general medical floor and treated with 7 days of ceftriaxone and metronidazole to cover aspiration pneumonia. Patient required deep suctioning but was able to be maintained on low-flow oxygen. Patient did continue to decline from a mental status point and originally the agreed for PEG tube. Further discussion with [facility] attendings and the declined the PEG tube and opted for comfort care. At this point he has completed his 7 days IV antibiotic and will be returned to the [facility] and comfort care. Discussion with about same and she understands and agrees. Time Attestation Discharge Coordination Time (in mins): 38 Quality: Safe Use of Opioids Does Pt have an Active Cancer Diagnosis on the Problem List?: No Quality: Stroke Does the patient have a stroke diagnosis?: No Physical Exam Vital Signs: Vital Signs: Last Vital Signs Temp 98.5 F 08/23/24 19:30 Pulse 70 08/23/24 19:30 Resp 17 08/24/24 07:42 BP 127/60 08/23/24 19:30 Pulse Ox 97 08/23/24 19:30 O2 Del Method Oxymask 08/23/24 19:30 O2 Flow Rate 2 08/23/24 19:30 BMI result Body Mass Index 40.7 Const: Other: General: Nonverbal, no acute distress, intermittent coughing No JVD Resp: rhonchi , no use of accessory muscles CVS: S1, S2, RRR GI: +BS, soft, no guarding, no rigidity Skin: Warm, dry. Extremities: Nonpitting edema DS: Data Data Completed and Pending Labs on day of discharge: Laboratory Results - last 24 hr 08/23/24 11:20 POC Glucose 126 H Discharge Plan Discharge Anticipated Discharge Date/Time: 08/24/24 10:29 Patient Disposition: er [facility] Discharge Diagnosis: Multifocal pneumonia Referrals: [facility] [place] [Other] - 1 Week Physician,Unknown J [Physician] - 1 Week Discharge Medications: New scopolamine base [Transderm-Scop] 1 mg over 3 days Patch 3 Day 1.5 mg EAR-BEHIND Q72H Qty: 3 0RF morphine concentrate 100 mg/5 mL (20 mg/mL) solution 5 mg PO Q3H PRN (Reason: pain/comfort) 15 Days Qty: 30 0RF Rx Instructions: Partial Fill upon patient request. lorazepam [Lorazepam Intensol] 2 mg/mL concentrate 0.5 mg PO Q4H PRN (Reason: anxiety/restlessness) Qty: 30 0RF Discontinued metformin 500 mg Tablet 500 mg PO BIDWMEAL acetaminophen 325 mg Tablet 650 mg PO Q4H PRN (Reason: Fever Or Pain) atorvastatin 20 mg Tablet 20 mg PO DAILY@1700 labetalol 200 mg Tablet 200 mg PO BID@0900,1700 dextromethorphan-guaifenesin [Tusnel Diabetic] 10-100 mg/5 mL Liquid 10 ml PO Q4H PRN (Reason: Cough) ondansetron HCl 4 mg Tablet 4 mg PO Q6H PRN (Reason: Nausea And Vomiting) loperamide 2 mg Tablet 2 mg PO Q3H PRN (Reason: Diarrhea) Rx Instructions: administer after each loose stool until symptoms controlled; do not exceed 8 mg per 24 hrs tamsulosin 0.4 mg Capsule 0.4 mg PO DAILY folic acid 1 mg Tablet 1 mg PO DAILY lisinopril 5 mg Tablet 5 mg PO DAILY furosemide 20 mg Tablet 20 mg PO DAILY finasteride 5 mg Tablet 5 mg PO DAILY glipizide 5 mg Tablet 2.5 mg PO DAILY memantine 10 mg Tablet 10 mg PO DAILY lactulose 10 gram/15 mL Solution 10 g PO BEDTIME PRN (Reason: Diarrhea) Triple Antibiotic 3.5-400-5,000 [id number] Ointment In Packet 1 appl TOPICAL BID@0900,1700 Rx Instructions: Apply to left first toe apixaban 5 mg Tablet 5 mg PO BID Discharge Orders: Discharge Order (Routine); Ordered 08/24/24 Ordered By: Luis Felipe Marr Diet: NPO Activity on Discharge: Bedrest Stand Alone Forms: Patient Portal Discharge page Print Language: Burundian Care Plan Goals: Comfort care Health Concerns: Dysphagia unable to swallow reassess swallow eval for comfort feeds Plan of Treatment: As per receiving facility Assessment: See discharge summary Discharge Date/Time: 08/24/24 12:35
[2024-08-24 11:22] VITALS: RESP 18
--- NOTE | 2024-08-24 11:35 | MHC.SPEECHCO ---
Pt returning to [facility] [employer]. COMPLIANCE SPECIALIST signing off.
== END 2024-08-24 12:35 | DRG 871 ==
LOC: HO.ED 09:57 → HO.EDOVER 12:22 → HO.S3 12:34
PROVIDERS: Family Medicine; Hospitalist; Nurse Practitioner Family; Admitting Provider Student in an Organized Health Care Education/Training Program; Emergency Provider Emergency Medicine; PCP Internal Medicine Interventional Cardiology; Visit Provider Hospitalist
DX: A41.9 Sepsis, unspecified organism (principal); G93.41 Metabolic encephalopathy; J96.01 Acute respiratory failure with hypoxia; J69.0 Pneumonitis due to inhalation of food and vomit; Z68.41 Body mass index [BMI] 40.0-44.9, adult; G30.9 Alzheimer's disease, unspecified; D64.9 Anemia, unspecified; E11.43 Type 2 diabetes mellitus with diabetic autonomic (poly)neuropathy; K31.84 Gastroparesis; F02.80 Dementia in other diseases classified elsewhere, unspecified severity, without behavioral disturbance, psychotic disturbance, mood disturbance, and anxiety; Z66 Do not resuscitate; E66.09 Other obesity due to excess calories; R13.10 Dysphagia, unspecified; E78.5 Hyperlipidemia, unspecified; Z51.5 Encounter for palliative care; N40.0 Benign prostatic hyperplasia without lower urinary tract symptoms; L89.321 Pressure ulcer of left buttock, stage 1; L89.311 Pressure ulcer of right buttock, stage 1; Z74.01 Bed confinement status; Z20.822 Contact with and (suspected) exposure to COVID-19; Z86.718 Personal history of other venous thrombosis and embolism; Z86.711 Personal history of pulmonary embolism; Z79.899 Other long term (current) drug therapy
CPT/HCPCS: 0241U; 36415; 71260; 74177; 80048; 80053; 81003; 82803; 82947; 83605; 83690; 83735; 83880; 84484; 85025; 85610; 87040; 92526; 92610; 93005; 99285; J0696; J1650; J1836; J1940; J2270; J2765; J3480; Q9967

== ENCOUNTER → 2024-08-16 06:49 | Outpatient (BNV) | payer OTHER, SELFPAY | PROVIDERS: Admitting Provider Student in an Organized Health Care Education/Training Program; Emergency Provider Emergency Medicine; Visit Provider Internal Medicine Cardiovascular Disease | DX: R94.31 Abnormal electrocardiogram [ECG] [EKG] (principal) | CPT/HCPCS: 93010 ==

== ENCOUNTER → 2024-08-16 12:10 | Outpatient (BNV) | payer OTHER, SELFPAY | PROVIDERS: Admitting Provider Student in an Organized Health Care Education/Training Program; Emergency Provider Emergency Medicine; PCP Internal Medicine Interventional Cardiology; Visit Provider Physician Assistant Surgical | DX: J96.01 Acute respiratory failure with hypoxia (principal); J18.9 Pneumonia, unspecified organism; R13.10 Dysphagia, unspecified | CPT/HCPCS: 99222 ==

== ENCOUNTER → 2024-08-16 12:10 | Outpatient (BNV) | payer OTHER, MEDICARE, SELFPAY | PROVIDERS: Admitting Provider Student in an Organized Health Care Education/Training Program; Emergency Provider Emergency Medicine; Visit Provider Student in an Organized Health Care Education/Training Program | DX: J18.9 Pneumonia, unspecified organism (principal); J96.01 Acute respiratory failure with hypoxia | CPT/HCPCS: 99223; 99232; 99499 ==